=== PATIENT | male | born 1985 | race Caucasian/White ===

== ENCOUNTER 2020-07-09 21:03 | Inpatient (IN) ==
[2020-07-09] MEDS ORDERED: chlordiazePOXIDE HCl 25 MG CAP PO ONE (21:52)
[2020-07-09] MEDS ORDERED: MULTI-VITAMIN INFUSION 10 ML, THIAMINE HCL 100 MG, FOLIC ACID 1 MG in SODIUM CHLORIDE 0... IV ONE (21:52)
--- NOTE | 2020-07-09 22:09 | Emergency Department Note ---
History of Present Illness General Chief complaint: Detox Request Stated complaint: ALCOHOLIC Time Seen by Provider: 07/09/20 21:28 History of Present Illness Maximum Pain Intensity: 0 This 35-year-old presents to the ER complaining of needing detox from alcohol Location: Generalized Quality: Shaky Severity: Moderate Duration: Past week Timing: Been drinking straight for the week Context: Patient is requesting detox and came in Modifying factors: better with alcohol; worse with not drinking Patient states he went to [facility] last December and does not want to go back there for rehab. Patient also requesting psychiatry referral. Patient states he drinks 1/5 of alcohol a day. When he wakes up he feels like he needs to drink. He states he gets the shakes when he does not drink. Patient occasionally smokes. No drug use. Patient denies chest pain, dyspnea, fevers, flulike illness. Patient states he would like to be medically admitted and does not want to go to a rehab facility. Home Medications Medication Instructions Recorded Confirmed Type multivitamin [Multiple Vitamins] 1 tab PO DAILY 07/09/20 07/09/20 History Allergies Allergy/AdvReac Type Severity Reaction Status Date / Time Penicillins Allergy Verified 07/09/20 22:00 Sulfa (Sulfonamide Allergy Verified 07/09/20 22:00 Antibiotics) sulfamethoxazole Allergy Verified 06/04/09 02:53 Past Med/Surg History Medical History Alcoholism Surgical History H/O gastric bypass Social History (Updated 07/09/20 @ 22:07 by Elayne Jacome PA-C) Smoking Status: Current every day smoker Hx Alcohol Use: Yes Feels Safe at Home: Yes Review of Systems A total of 10 systems reviewed and were otherwise negative Physical Exam Vital Signs Vital Signs - 24 hr 07/09/20 21:07 07/09/20 21:28 07/09/20 21:30 Temperature 36.4 C L Temperature Source Temporal Artery Scan Pulse Rate 101 H 98 H 94 H Pulse Rate from SpO2 Sensor 95 H 92 H Respiratory Rate 18 14 12 Respiratory Effort / Characteristics Non-Labored Spontaneous Respiratory Depth Normal Blood Pressure 142/90 H 164/103 H 142/114 H Blood Pressure Mean 107 123 123 Pulse Oximetry 93 95 95 Oxygen Delivery Method Room Air Room Air Room Air Sepsis Recent Fever Within 48 Hours No Sepsis New/Unexplained Change in Mental Status No Sepsis Action Taken by Nursing No Action Required 07/09/20 21:40 07/09/20 22:00 07/09/20 23:16 Temperature Temperature Source Pulse Rate 97 H 94 H 111 H Pulse Rate from SpO2 Sensor 97 H 95 H Respiratory Rate 17 17 Respiratory Effort / Characteristics Respiratory Depth Blood Pressure 164/106 H 189/118 H Blood Pressure Mean 125 Pulse Oximetry 97 95 Oxygen Delivery Method Room Air Room Air Sepsis Recent Fever Within 48 Hours Sepsis New/Unexplained Change in Mental Status Sepsis Action Taken by Nursing 07/09/20 23:27 07/09/20 23:31 07/10/20 00:00 Temperature Temperature Source Pulse Rate 91 H 97 H 98 H Pulse Rate from SpO2 Sensor 91 H Respiratory Rate 20 24 17 Respiratory Effort / Characteristics Respiratory Depth Blood Pressure 148/82 H 130/90 122/86 Blood Pressure Mean 104 103 98 Pulse Oximetry 100 96 96 Oxygen Delivery Method Room Air Room Air Room Air Sepsis Recent Fever Within 48 Hours Sepsis New/Unexplained Change in Mental Status Sepsis Action Taken by Nursing 07/10/20 00:30 07/10/20 01:03 Temperature Temperature Source Pulse Rate 83 83 Pulse Rate from SpO2 Sensor 83 Respiratory Rate 16 20 Respiratory Effort / Characteristics Respiratory Depth Blood Pressure 128/79 138/84 Blood Pressure Mean 95 102 Pulse Oximetry 96 Oxygen Delivery Method Room Air Sepsis Recent Fever Within 48 Hours Sepsis New/Unexplained Change in Mental Status Sepsis Action Taken by Nursing VITALS: Vitals are noted on the nurse's note and reviewed by myself. Vital signs mildly tachycardic. GENERAL: Pleasant male who appears depressed, in no acute distress, nondiaphoretic, well-developed well-nourished. SKIN: The skin was without rashes, erythema, edema, or bruising. There is no tenting of the skin. Capillary reflex less than 2 seconds. HEAD: Normocephalic atraumatic. EARS: External auditory canals clear, tympanic membranes pearly willett without erythema or effusion bilaterally. EYES: Pupils equal round and reactive to light and accommodation. Conjunctivae without injection, sclerae without icterus. Extraocular movements intact. NOSE: Patent, turbinates without inflammation or discharge. MOUTH: Mucous membranes mildly dry. Pharynx without erythema or exudate. Uvula midline. Airway patent. Tongue does not deviate. NECK: Supple without nuchal rigidity. No lymphadenopathy. No thyromegaly. Cervical spine is nontender. No JVD. HEART: Mildly tachycardic rate and rhythm LUNGS: Clear to auscultation bilaterally without wheezes, rales or rhonchi. No retractions or accessory muscle use. ABDOMEN: Positive bowel sounds x 4. Normal tympanic percussion. Soft, nontender, without masses or organomegaly. Herrera sign negative. No guarding or rebound tenderness. No CVA tenderness MUSCULOSKELETAL: No muscle atrophy, erythema, or edema noted. NEURO: Patient was alert and oriented to person place and time. Normal sensation to light and sharp touch. No focal neurological deficits. Course Administered Medications Discontinued Medications Chlordiazepoxide HCl (Chlordiazepoxide Hcl 25 Mg Cap) 50 mg PO NOW ONE Stop: 07/09/20 21:53 Last Admin: 07/09/20 22:37 Dose: 50 mg Documented by: [id number] Clonidine HCl (Clonidine Hcl 0.1 Mg Tab) 0.1 mg PO NOW ONE Stop: 07/09/20 22:19 Last Admin: 07/09/20 22:37 Dose: 0.1 mg Documented by: [id number] Gabapentin (Gabapentin 600 Mg Tab) 1,200 mg PO NOW STA Stop: 07/09/20 23:44 Last Admin: 07/09/20 23:50 Dose: 1,200 mg Documented by: [id number] Multivitamins 10 ml/ Thiamine HCl 100 mg/ Folic Acid 1 mg/Sodium Chloride 1,011.2 mls @ 1,011.2 mls/hr IV .Q1H ONE Stop: 07/09/20 22:51 Last Infusion: 07/09/20 23:56 Dose: 0 mls/hr Documented by: [id number] Admin: 07/09/20 22:41 Dose: 1,011.2 mls/hr Documented by: [id number] Magnesium Sulfate/Dextrose (Magnesium Sulfate / D5w) 1 gm in 100 mls @ 100 mls/hr IV Q1H RONALDO Stop: 07/10/20 00:58 Last Admin: 07/10/20 00:32 Dose: 100 mls/hr Documented by: [id number] Infusion: 07/10/20 00:26 Dose: 0 mls/hr Documented by: [id number] Admin: 07/09/20 23:22 Dose: 100 mls/hr Documented by: [id number] Potassium Chloride (K Harman / Wtr) 10 meq in 100 mls @ 100 mls/hr IV Q1H RONALDO Stop: 07/10/20 00:59 Last Admin: 07/10/20 00:33 Dose: 100 mls/hr Documented by: [id number] Infusion: 07/10/20 00:27 Dose: 0 mls/hr Documented by: [id number] Admin: 07/09/20 23:22 Dose: 100 mls/hr Documented by: [id number] Ceftriaxone Sodium (Rocephin) 2,000 mg in 70 mls @ 100 mls/hr IV NOW STA Stop: 07/10/20 00:38 Last Infusion: 07/10/20 01:04 Dose: 0 mls/hr Documented by: [id number] Admin: 07/10/20 00:27 Dose: 100 mls/hr Documented by: [id number] Metoprolol Tartrate (Metoprolol Tartrate 1 Mg/Ml Vial) 2.5 mg IV NOW STA Stop: 07/09/20 23:13 Last Admin: 07/09/20 23:16 Dose: 2.5 mg Documented by: [id number] Potassium Chloride (Potassium Chloride 20 Meq/15 Ml Udc) 40 meq PO NOW STA Stop: 07/09/20 23:00 Last Admin: 07/09/20 23:13 Dose: 40 meq Documented by: [id number] Potassium Chloride (Potassium Chloride Crtab 20 Meq Tabcr) 50 meq PO NOW STA Stop: 07/09/20 23:17 Last Admin: 07/09/20 23:56 Dose: Not Given Documented by: [id number] Medical Decision Making Medical Records Attestation: I reviewed the patient's medical records. Home Medications Current Medication List: was personally reviewed by me Laboratory Data Attestation: I reviewed the patient's lab results. Result diagrams: 07/09/20 22:15 07/09/20 22:15 Lab Results 07/09/20 07/09/20 07/09/20 Range/Units 21:23 21:23 22:09 WBC (4.8-10.8) K/uL RBC (4.7-6.1) M/uL Hgb (14.0-18.0) g/dL Hct (42-52) % MCV (80-100) fL MCH (25-34) pg MCHC (32-36) g/dL RDW Std Deviation (36.4-46.3) fL RDW Coeff of Kunal (11.5-14.5) % Plt Count (130-400) K/uL MPV (7.4-10.4) fL Neutrophils % (Manual) % Lymphocytes % (Manual) % Monocytes % (Manual) % Basophils % (Manual) % Neutrophils # (Manual) (1.4-6.5) K/uL Total Absolute Neuts (1.4-6.5) K/uL Lymphocytes # (Manual) (1.2-3.4) K/uL Total Abs Lymphocytes (1.2-3.4) K/uL Monocytes # (Manual) (0.11-0.59) K/uL Basophils # (Manual) (0-0.2) K/uL Large Granular Lymphs % # Lrg Granular Lymphs K/uL Sodium (136-145) mmol/L Potassium (3.5-5.1) mmol/L Chloride (98-107) mmol/L Carbon Dioxide (21-32) mmol/L Anion Gap (3-11) BUN (7-18) mg/dl Creatinine (0.6-1.4) mg/dl Est Cr Clr Drug Dosing ml/min Est GFR ( Amer) Est GFR (Non-Af Amer) BUN/Creatinine Ratio (10-20) Glucose (70-99) mg/dl Calcium (8.5-10.1) mg/dl Magnesium (1.8-2.4) mg/dl Total Bilirubin (0.2-1) mg/dl AST (15-37) U/L ALT (12-78) U/L Alkaline Phosphatase (45-117) U/L Ammonia (11-32) umol/L Total Protein (6.4-8.2) gm/dl Albumin (3.4-5.0) gm/dl Globulin (2.5-4.0) gm/dl Albumin/Globulin Ratio (0.9-2) TSH (0.300-4.500) uIu/ml Urine Color Dark Yellow Urine Appearance Clear (Clear) Urine pH 6.0 (4.5-7.5) Ur Specific [place] 1.025 (1.000-1.030) Urine Protein 3+ H (Negative) Urine Glucose (UA) Negative (Negative) Urine Ketones Trace H (Negative) Urine Blood 2+ H (Negative) Urine Nitrite Positive A (Negative) Urine Bilirubin 2+ H (Negative) Urine Urobilinogen Negative (Negative) Ur Leukocyte Esterase Trace H (Negative) Urine WBC (Auto) 1-5 (0-5) /hpf Urine RBC (Auto) 5-10 H (0-4) /hpf U Hyaline Cast (Auto) >30 H (0-5) /lpf U Epithel Cells (Auto) >30 H (0-5) /lpf Urine Bacteria (Auto) Negative (Negative) Ur Renal Epithelial Cell Not Reportable Urine Opiates Screen Neg (Neg) Ur Methadone, Qual Neg (Neg) Urine Barbiturates Neg (Neg) Ur Phencyclidine (PCP) Neg (Neg) U Amphetamin/Meth Scrn Neg (Neg) MDMA (Ecstasy) Screen Neg (Neg) U Benzodiazepines Scrn Neg (Neg) Ur Cocaine Metabolite Neg (Neg) U Marijuana (THC) Screen Neg (Neg) Ethyl Alcohol mg/dL (0-3) mg/dl COVID-19 [facility] SARS-CoV-2, RNA, NAAT (NEGATIVE) 07/09/20 07/09/20 07/09/20 Range/Units 22:09 22:15 22:15 WBC 4.45 L (4.8-10.8) K/uL RBC 5.01 (4.7-6.1) M/uL Hgb 16.3 (14.0-18.0) g/dL Hct 45.3 (42-52) % MCV 90.4 (80-100) fL MCH 32.5 (25-34) pg MCHC 36.0 (32-36) g/dL RDW Std Deviation 57.8 H (36.4-46.3) fL RDW Coeff of Kunal 17.6 H (11.5-14.5) % Plt Count 85 L (130-400) K/uL MPV 10.7 H (7.4-10.4) fL Neutrophils % (Manual) 27.8 % Lymphocytes % (Manual) 40.1 % Monocytes % (Manual) 8.7 % Basophils % (Manual) 1.7 % Neutrophils # (Manual) 1.24 L (1.4-6.5) K/uL Total Absolute Neuts 1.24 L (1.4-6.5) K/uL Lymphocytes # (Manual) 1.78 (1.2-3.4) K/uL Total Abs Lymphocytes 2.75 (1.2-3.4) K/uL Monocytes # (Manual) 0.39 (0.11-0.59) K/uL Basophils # (Manual) 0.08 (0-0.2) K/uL Large Granular Lymphs 21.7 % # Lrg Granular Lymphs 0.97 K/uL Sodium 138 (136-145) mmol/L Potassium 2.3 L* (3.5-5.1) mmol/L Chloride 95 L (98-107) mmol/L Carbon Dioxide 29 (21-32) mmol/L Anion Gap 13.0 H (3-11) BUN 5 L (7-18) mg/dl Creatinine 0.82 (0.6-1.4) mg/dl Est Cr Clr Drug Dosing 165.2 ml/min Est GFR ( Amer) 131.9 Est GFR (Non-Af Amer) 113.8 BUN/Creatinine Ratio 6.2 L (10-20) Glucose 116 H (70-99) mg/dl Calcium 7.3 L (8.5-10.1) mg/dl Magnesium 1.1 L (1.8-2.4) mg/dl Total Bilirubin 2.4 H (0.2-1) mg/dl AST 481 H (15-37) U/L ALT 122 H (12-78) U/L Alkaline Phosphatase 308 H (45-117) U/L Ammonia (11-32) umol/L Total Protein 7.8 (6.4-8.2) gm/dl Albumin 3.2 L (3.4-5.0) gm/dl Globulin 4.6 H (2.5-4.0) gm/dl Albumin/Globulin Ratio 0.7 L (0.9-2) TSH 1.270 (0.300-4.500) uIu/ml Urine Color Urine Appearance (Clear) Urine pH (4.5-7.5) Ur Specific [place] (1.000-1.030) Urine Protein (Negative) Urine Glucose (UA) (Negative) Urine Ketones (Negative) Urine Blood (Negative) Urine Nitrite (Negative) Urine Bilirubin (Negative) Urine Urobilinogen (Negative) Ur Leukocyte Esterase (Negative) Urine WBC (Auto) (0-5) /hpf Urine RBC (Auto) (0-4) /hpf U Hyaline Cast (Auto) (0-5) /lpf U Epithel Cells (Auto) (0-5) /lpf Urine Bacteria (Auto) (Negative) Ur Renal Epithelial Cell Urine Opiates Screen (Neg) Ur Methadone, Qual (Neg) Urine Barbiturates (Neg) Ur Phencyclidine (PCP) (Neg) U Amphetamin/Meth Scrn (Neg) MDMA (Ecstasy) Screen (Neg) U Benzodiazepines Scrn (Neg) Ur Cocaine Metabolite (Neg) U Marijuana (THC) Screen (Neg) Ethyl Alcohol mg/dL (0-3) mg/dl COVID-19 Eval Order SARS-CoV-2, RNA, NAAT NEGATIVE (NEGATIVE) 07/09/20 07/09/20 Range/Units 22:15 22:20 WBC (4.8-10.8) K/uL RBC (4.7-6.1) M/uL Hgb (14.0-18.0) g/dL Hct (42-52) % MCV (80-100) fL MCH (25-34) pg MCHC (32-36) g/dL RDW Std Deviation (36.4-46.3) fL RDW Coeff of Kunal (11.5-14.5) % Plt Count (130-400) K/uL MPV (7.4-10.4) fL Neutrophils % (Manual) % Lymphocytes % (Manual) % Monocytes % (Manual) % Basophils % (Manual) % Neutrophils # (Manual) (1.4-6.5) K/uL Total Absolute Neuts (1.4-6.5) K/uL Lymphocytes # (Manual) (1.2-3.4) K/uL Total Abs Lymphocytes (1.2-3.4) K/uL Monocytes # (Manual) (0.11-0.59) K/uL Basophils # (Manual) (0-0.2) K/uL Large Granular Lymphs % # Lrg Granular Lymphs K/uL Sodium (136-145) mmol/L Potassium (3.5-5.1) mmol/L Chloride (98-107) mmol/L Carbon Dioxide (21-32) mmol/L Anion Gap (3-11) BUN (7-18) mg/dl Creatinine (0.6-1.4) mg/dl Est Cr Clr Drug Dosing ml/min Est GFR ( Amer) Est GFR (Non-Af Amer) BUN/Creatinine Ratio (10-20) Glucose (70-99) mg/dl Calcium (8.5-10.1) mg/dl Magnesium (1.8-2.4) mg/dl Total Bilirubin (0.2-1) mg/dl AST (15-37) U/L ALT (12-78) U/L Alkaline Phosphatase (45-117) U/L Ammonia 11.3 (11-32) umol/L Total Protein (6.4-8.2) gm/dl Albumin (3.4-5.0) gm/dl Globulin (2.5-4.0) gm/dl Albumin/Globulin Ratio (0.9-2) TSH (0.300-4.500) uIu/ml Urine Color Urine Appearance (Clear) Urine pH (4.5-7.5) Ur Specific [place] (1.000-1.030) Urine Protein (Negative) Urine Glucose (UA) (Negative) Urine Ketones (Negative) Urine Blood (Negative) Urine Nitrite (Negative) Urine Bilirubin (Negative) Urine Urobilinogen (Negative) Ur Leukocyte Esterase (Negative) Urine WBC (Auto) (0-5) /hpf Urine RBC (Auto) (0-4) /hpf U Hyaline Cast (Auto) (0-5) /lpf U Epithel Cells (Auto) (0-5) /lpf Urine Bacteria (Auto) (Negative) Ur Renal Epithelial Cell Urine Opiates Screen (Neg) Ur Methadone, Qual (Neg) Urine Barbiturates (Neg) Ur Phencyclidine (PCP) (Neg) U Amphetamin/Meth Scrn (Neg) MDMA (Ecstasy) Screen (Neg) U Benzodiazepines Scrn (Neg) Ur Cocaine Metabolite (Neg) U Marijuana (THC) Screen (Neg) Ethyl Alcohol mg/dL 355.4 H (0-3) mg/dl COVID-19 Eval Order SARS-CoV-2, RNA, NAAT (NEGATIVE) MDM Narrative Prior records/ancillary studies reviewed and summarized above. Nursing notes reviewed. Additional history obtained from family. The patient's history was concerning for alcoholism. Differential diagnosis: Etiologies such as alcoholism, metabolic, infection, hypo/hyperglycemia, electrolyte abnormalities, cardiac sources, intracerebral event, toxicologic, neurologic, as well as others were entertained. Physical examination: As above. ER treatment provided: IV Lock An order was placed for continuous cardiac monitoring. The monitor shows a rate of 60-1 20 with a sinus rhythm. Librium, banana bag, magnesium, potassium On reassessment the patient felt better. Diagnostics interpretation by me: ECG: Ordered for alcoholism and weakness EKG: Normal sinus, normal intervals, no acute ST-T wave changes. Impression normal sinus rhythm interpreted by myself I think arrhythmia is unlikely. EKG shows normal sinus rhythm with no interval abnormalities such as QT prolongation or WPW. There are no findings to suggest Brugada syndrome. Cardiac monitoring in the emergency department reveals no tachycardic or bradycardic dysrhythmia. Hypertrophic cardiomyopathy was considered but there are no clear historical elements pointing toward this. EKG is not suggestive. The QRS voltage is not extremely large and there are no hutchins ggestive Q waves. The labs revealed hypokalemia and this was replaced orally and intravenously. Hypomagnesia and this was replaced intravenously Elevated LFTs most likely related to alcoholism Elevated alcohol Imaging studies: Chest x-ray with no acute consolidation, pneumothorax or free air per my interpretation Consultation: A consultation was placed with the hospitalist, Dr Rand. The case was discussed and diagnostics were reviewed. The patient was evaluated in the ER for further treatment. Exam and history seem consistent with alcoholism requesting detox. Electrolytes were replenished. Patient was requesting medical admission. Medicine was consulted. He requested to talk to a counselor for his depression. Sudha from case management did speak to the patient. Patient is agreeable to treatment plan of admission. Medicine will evaluate. By the evaluation outlined above emergent etiologies such as infection, cardiac sources, intracerebral event, neurologic, abnormalities blood glucose, as well as others were deemed relatively unlikely. The pt informed about the findings as listed above. All questions were answered and pleased with the treatment. The chart was completed utilizing [employer] voice recognition software. Grammatical errors, random word insertions, pronoun errors, and incomplete sentences are an occassional consequence of this system due to software limitations, ambient noise, and hardware issues. Any formal questions or concerns about the content, text, or information contained within the body of this dictation should be directly addressed to the physician pathologist assistant for clarification. Impression & Plan Alcoholism, Hypomagnesemia, Hypokalemia, Alcoholic intoxication Discharge Plan Visit Data Chief Complaint: Detox Request Stated Complaint: ALCOHOLIC ED Provider: Krunal Bosch ED Midlevel Provider: Elayne Jacome Discharge Problem: Alcoholism, Hypomagnesemia, Hypokalemia, Alcoholic intoxication Patient Disposition: Being Evaluated by Hospitalist Condition: Good Discharge Instructions Interventions: ED Discharge Assessment Last Done: 07/10/20 01:25 Forms Stand Alone Forms: [facility], Suicide Prevention Resources Prescriptions Prescriptions: No Action multivitamin [Multiple Vitamins] Tablet 1 tab PO DAILY RF: 0 Referrals Referrals: PCP,NO [Primary Care Provider] -
[2020-07-09] MEDS ORDERED: cloNIDine HCL 0.1 MG TAB PO ONE (22:18)
--- NOTE | 2020-07-09 22:21 | XRay Report ---
SINGLE VIEW CHEST CLINICAL HISTORY: Generalized weakness. FINDINGS: An AP, portable, upright chest radiograph is obtained. No prior studies are available for c omparison at the time of dictation. The examination is degraded by portable technique, apical lordoti c positioning, and patient rotation. The cardiomediastinal silhouette is unremarkable. There is mild bibasilar atelectasis and elevation of right hemidiaphragm. No airspace consolidation or large pleura l effusion is identified. No pneumothorax is seen. The bony thorax is grossly intact. IMPRESSION: No active disease in the chest. ACT 112: Negative or not required by law. Electronically signed by: Lele Bailey M.D. 07/09/2020 10:19 PM
[2020-07-09 22:39] LABS: Appearance Urine Clear (Clear); Bacteria Urine Automated Negative (Negative); Blood Urine 2+ (Negative); Color Urine Dark Yellow; Epithelial Cell Urine Auto >30 /lpf (0-5); Glucose Urine UA Negative (Negative); Ketones Urine Trace (Negative); Leukocyte Esterase Urine Trace (Negative); Nitrite Urine Positive (Negative); Protein Urine 3+ (Negative); Specific Gravity Urine 1.025 (1.000-1.030); Urobilinogen Urine Negative (Negative)
[2020-07-09 22:42] LABS: Bilirubin Urine 2+ (Negative)
[2020-07-09 22:50] LABS: Cast Urine Automated >30 /lpf (0-5)
[2020-07-09 22:56] LABS: Albumin Level 3.2 gm/dl (3.4-5.0); BUN Creatinine Ratio 6.2 (10-20); Calcium 7.3 mg/dl (8.5-10.1); Creatinine Clr Calc Pharmacy 165.2 ml/min; Est GFR (African American) 131.9; Est GFR (Non-African American) 113.8; Magnesium 1.1 mg/dl (1.8-2.4); Potassium 2.3 mmol/L (3.5-5.1)
[2020-07-09] MEDS ORDERED: POTASSIUM CHLORIDE 20 MEQ/15 ML UDC PO STA (22:59)
[2020-07-09 23:02] LABS: Amphetamines+Metham, Urine Neg (Neg); Barbiturates, Urine Neg (Neg); Benzodiazepine, Urine Neg (Neg); Cocaine, Urine Neg (Neg); MDMA (Ecstacy), Urine Neg (Neg); Methadone, Urine Neg (Neg); Opiate, Urine Neg (Neg); Phencyclidine, Urine Neg (Neg)
[2020-07-09 23:07] LABS: Albumin Globulin Ratio 0.7 (0.9-2); Bilirubin,Total 2.4 mg/dl (0.2-1); Globulin 4.6 gm/dl (2.5-4.0); Thyroid Stimulating Hormone 1.27 uIu/ml (0.300-4.500); Total Protein 7.8 gm/dl (6.4-8.2)
--- NOTE | 2020-07-09 23:11 | History & Physical Report ---
Date of Service July 09, 2020 Assessment & Plan (1) Asymptomatic hypertensive urgency: History hypertension previously on diuretic Rx prior to bariatric surgery Markedly elevated BP secondary to alcohol withdrawal Alcoholic hepatitis New onset thrombocytopenia possibly secondary to alcoholic liver disease Hypokalemia, hypomagnesemia secondary to poor p.o. intake Complicated UTI, no sepsis mood disorder, suboptimal, past history bupropion Rx which patient stopped because it was not working history of gastric bypass Hyperglycemia rule out DM ongoing tobacco abuse PCU Initiate lisinopril Clonidine as needed for uncontrolled BP Liver ultrasound Follow LFTs, GI consult if with worsening Replace electrolytes Psych consult for suboptimal depression Check hemoglobin A1c Social service RE discharge planning Nicotine gum as needed DVT prophylaxis. SCDs Re: Thrombocytopenia Full code Text document was generated using [employer] voice recognition software. It may contain grammatical or spelling errors. Kindly contact undersigned for clarification of any documentation item in question. History of Present Illness Chief Complaint: Detox Primary Care Provider: Dr. Fernandez History obtained from patient, family, and records. Medical history significant for hypertension, hyperlipidemia, mood disorder, history of gastric bypass (2005), ongoing tobacco/alcohol use. Patient admitted at [facility] drug rehab facility for alcohol detox last December 2019. Patient went back to drinking 2 months ago. " Brain on fire." Admits to bad depression but denies suicidality. Patient family has been talking to patient about detoxing since last week to fix his life. Last drink was yesterday. Patient denies chest pain, SOB, headache, cough symptoms. Denies abdominal pain, diarrhea. Poor appetite. Admits to urinary urgency. No prior history of alcohol withdrawal seizures or intubation for bad alcohol withdrawal. Medical History as above Surgical History : Gastric bypass, liver biopsy Family History : Alcoholism Personal/Social history : 3 cigarettes a day, alcohol abuse, [employer] work Allergies Allergy/AdvReac Type Severity Reaction Status Date / Time Penicillins Allergy Verified 07/09/20 22:00 Sulfa (Sulfonamide Allergy Verified 07/09/20 22:00 Antibiotics) sulfamethoxazole Allergy Verified 06/04/09 02:53 Home Medications Medication Instructions Recorded Confirmed Type multivitamin [Multiple Vitamins] 1 tab PO DAILY 07/09/20 07/09/20 History Past Med/Surg History Medical History Alcoholism Surgical History H/O gastric bypass Social History (Updated 07/09/20 @ 22:07 by Elayne Jacome PA-C) Smoking Status: Current some day smoker Second Hand Exposure: No; Do You Dip or Chew Tobacco: No; Tobacco Cessation Education Requested by Patient: No Hx Alcohol Use: Yes Alcohol type: hard liquor Hx Substance Use: No Preferred Language: Faroese Communication Ability: Effective Amf Mechanic Required: No Beliefs That Will Affect Care: None Current Living Situation: Spouse Other Information That Helps Us Care for You: No Feels Safe at Home: Yes Safety Concerns: Feels Safe At This Time Assistive Devices: Glasses Review of Systems Review of Systems: As per HPI, all 10 systems reviewed, all other ROS negative Physical Exam Physical Exam: GENERAL: Slightly uncomfortable and anxious, obese, no respiratory distress SKIN: Normal color, warm HEENT: Bespectacled, pink palpebral conjunctivae, flushed face, no ptosis, dry buccal mucosa NECK : Supple, short neck, no tenderness CHEST : CTA, no tenderness HEART : RRR, no obvious murmurs ABDOMEN: Some distention, nontender EXTREMITIES : No LE swelling/tenderness, no other conspicuous deformities noted NEUROLOGIC : Coherent, no facial asymmetry, no other gross focality Results & Data Results & Data ([facility]) Vital Signs (Past 12 Hours) Vital Signs Temp Pulse Resp BP Pulse Ox 07/09/20 22:00 94 H 17 164/106 H 95 07/09/20 21:40 97 H 17 97 07/09/20 21:30 94 H 12 142/114 H 95 07/09/20 21:28 98 H 14 164/103 H 95 07/09/20 21:07 36.4 C L 101 H 18 142/90 H 93 Laboratory Results Laboratory Results Sodium 138 mmol/L (136-145) 07/09/20 22:15 Potassium 2.3 mmol/L (3.5-5.1) L* 07/09/20 22:15 Chloride 95 mmol/L (98-107) L 07/09/20 22:15 Carbon Dioxide 29 mmol/L (21-32) 07/09/20 22:15 Anion Gap 13.0 (3-11) H 07/09/20 22:15 BUN 5 mg/dl (7-18) L 07/09/20 22:15 Creatinine 0.82 mg/dl (0.6-1.4) 07/09/20 22:15 Est Cr Clr Drug Dosing 165.2 ml/min 07/09/20 22:15 Est GFR ( Amer) 131.9 07/09/20 22:15 Est GFR (Non-Af Amer) 113.8 07/09/20 22:15 BUN/Creatinine Ratio 6.2 (10-20) L 07/09/20 22:15 Glucose 116 mg/dl (70-99) H 07/09/20 22:15 Calcium 7.3 mg/dl (8.5-10.1) L 07/09/20 22:15 Magnesium 1.1 mg/dl (1.8-2.4) L 07/09/20 22:15 Total Bilirubin 2.4 mg/dl (0.2-1) H 07/09/20 22:15 AST 481 U/L (15-37) H 07/09/20 22:15 ALT 122 U/L (12-78) H 07/09/20 22:15 Alkaline Phosphatase 308 U/L (45-117) H 07/09/20 22:15 Ammonia 11.3 umol/L (11-32) 07/09/20 22:15 Total Protein 7.8 gm/dl (6.4-8.2) 07/09/20 22:15 Albumin 3.2 gm/dl (3.4-5.0) L 07/09/20 22:15 Globulin 4.6 gm/dl (2.5-4.0) H 07/09/20 22:15 Albumin/Globulin Ratio 0.7 (0.9-2) L 07/09/20 22:15 TSH 1.270 uIu/ml (0.300-4.500) 07/09/20 22:15 Urine Color Dark Yellow 07/09/20:23 Urine Appearance Clear (Clear) 07/09/20 21:23 Urine pH 6.0 (4.5-7.5) 07/09/20:23 Ur Specific [place] 1.025 (1.000-1.030) 07/09/20:23 Urine Protein 3+ (Negative) H 07/09/20:23 Urine Glucose (UA) Negative (Negative) 07/09/20 21:23 Urine Ketones Trace (Negative) H 07/09/20 21:23 Urine Blood 2+ (Negative) H 07/09/20 21:23 Urine Nitrite Positive (Negative) A 07/09/20 21:23 Urine Bilirubin 2+ (Negative) H 07/09/20 21:23 Urine Urobilinogen Negative (Negative) 07/09/20 21:23 Ur Leukocyte Esterase Trace (Negative) H 07/09/20 21:23 Urine WBC (Auto) 1-5 /hpf (0-5) 07/09/20 21:23 Urine RBC (Auto) 5-10 /hpf (0-4) H 07/09/20 21: U Hyaline Cast (Auto) >30 /lpf (0-5) H 07/09/20 21: U Epithel Cells (Auto) >30 /lpf (0-5) H 07/09/20 21:23 Urine Bacteria (Auto) Negative (Negative) 07/09/20 21:23 Ur Renal Epithelial Cell Not Reportable 07/09/20 21:23 Urine Opiates Screen Neg (Neg) 07/09/20 21:23 Ur Methadone, Qual Neg (Neg) 07/09/20 21:23 Urine Barbiturates Neg (Neg) 07/09/20 21:23 Ur Phencyclidine (PCP) Neg (Neg) 07/09/20 21:23 U Amphetamin/Meth Scrn Neg (Neg) 07/09/20 21:23 MDMA (Ecstasy) Screen Neg (Neg) 07/09/20 21:23 U Benzodiazepines Scrn Neg (Neg) 07/09/20 21:23 Ur Cocaine Metabolite Neg (Neg) 07/09/20 21:23 U Marijuana (THC) Screen Neg (Neg) 07/09/20 21:23 COVID-19 Eval Order Covid19 [facility] 07/09/20 22:09 SARS-CoV-2, RNA, NAAT NEGATIVE (NEGATIVE) 07/09/20 22:09 Diagnostic Findings Chest x-ray : No active disease in the chest. EKG as per my interpretation : Rate 85, NSR, normal axis, no ischemia
[2020-07-09] MEDS ORDERED: METOPROLOL TARTRATE 1 MG/ML VIAL IV STA (23:12)
[2020-07-09] MEDS ORDERED: POTASSIUM CHLORIDE CRTAB 20 MEQ TABCR PO STA (23:16)
[2020-07-09 23:17] LABS: Hematocrit (blood only) 45.3 % (42-52); Hemoglobin 16.3 g/dL (14.0-18.0); Mean Corpuscular Hemoglobin 32.5 pg (25-34); Mean Corpuscular Volume 90.4 fL (80-100); Mean Platelet Volume 10.7 fL (7.4-10.4); Platelet Count 85 K/uL (130-400); RDW Coefficient of Variation 17.6 % (11.5-14.5); RDW Standard Deviation 57.8 fL (36.4-46.3); Red Blood Count 5.01 M/uL (4.7-6.1); White Blood Count 4.45 K/uL (4.8-10.8)
[2020-07-09] MEDS: MAGNESIUM SULFATE / D5W 1 GM/100 ML BAG IV SCH (23:22)
[2020-07-09] MEDS: POTASSIUM CHLORIDE / WTR 10 MEQ/100 ML PLCT IV SCH (23:22)
[2020-07-09] MEDS ORDERED: GABAPENTIN 800 MG TAB PO STA (23:23)
[2020-07-09 23:28] LABS: ALC (manual) 2.75 K/uL (1.2-3.4); ANC (manual) 1.24 K/uL (1.4-6.5); Basophils # (manual) 0.08 K/uL (0-0.2); Basophils % (manual) 1.7 %; Large Granular Lymph # (manua 0.97 K/uL; Large Granular Lymph % (manual) 21.7 %; Lymphocytes # (manual) 1.78 K/uL (1.2-3.4); Lymphocytes % (manual) 40.1 %; Monocytes # (manual) 0.39 K/uL (0.11-0.59); Monocytes % (manual) 8.7 %; Neutrophils # (manual) 1.24 K/uL (1.4-6.5); Neutrophils % (manual) 27.8 %
[2020-07-09] MEDS ORDERED: GABAPENTIN 600 MG TAB PO STA (23:43)
[2020-07-09] MEDS ORDERED: cefTRIAXone SODIUM 2,000 MG/70 ML BAG IV STA (23:57)
[2020-07-10] MEDS: MAGNESIUM SULFATE / D5W 1 GM/100 ML BAG IV SCH ×3 (00:32→05:23)
[2020-07-10] MEDS: POTASSIUM CHLORIDE / WTR 10 MEQ/100 ML PLCT IV SCH (00:33)
[2020-07-10] MEDS ORDERED: ATIVAN IV ALCOHOL WITHDRAWL IV PRN (02:16)
[2020-07-10] MEDS ORDERED: LORazepam 1 MG/2 ML VIAL IV PRN (02:16)
[2020-07-10] MEDS ORDERED: LORazepam 2 MG/4 ML VIAL IV PRN (02:16)
[2020-07-10] MEDS ORDERED: ACETAMINOPHEN 325 MG TAB PO PRN (02:16)
[2020-07-10] MEDS ORDERED: oxyCODONE HCL IR 5 MG TAB (IMMEDIATE RELEASE) PO PRN (02:16)
[2020-07-10] MEDS ORDERED: LORazepam 3 MG/6 ML VIAL IV PRN (02:16)
[2020-07-10] MEDS ORDERED: PROMETHAZINE HCL 12.5 MG in SODIUM CHLORIDE 0.9% 50 ML IV PRN (02:16)
[2020-07-10] MEDS ORDERED: GABAPENTIN 1200MG ALCOHOL WITHDRAWAL LOAD PO STA (02:16)
[2020-07-10] MEDS ORDERED: POTASSIUM CHLORIDE 10 MEQ TABCR PO ONE ×2 (02:30→03:15)
[2020-07-10] MEDS ORDERED: POTASSIUM CHLORIDE 40 MEQ in SODIUM CHLORIDE 0.9% 1000ML 1,000 ML IV ONE (02:45)
[2020-07-10] MEDS: FOLIC ACID 1 MG TAB PO SCH ×2 (03:12→07:47)
[2020-07-10] MEDS: THIAMINE HCL 100 MG TAB PO SCH ×2 (03:12→07:47)
[2020-07-10] MEDS: lisinopril 5 MG TAB PO SCH (04:35)
[2020-07-10] MEDS: GABAPENTIN 600 MG TAB PO SCH ×3 (04:36→19:34)
[2020-07-10] MEDS ORDERED: CALCIUM GLUCONATE 10% 2,000 MG in SODIUM CHLORIDE 0.9% 50 ML IV STA (06:44)
[2020-07-10 07:20] LABS: Hematocrit (blood only) 41.7 % (42-52); Hemoglobin 14.3 g/dL (14.0-18.0); Mean Corpuscular Hemoglobin 31.8 pg (25-34); Mean Corpuscular Hgb Conc 34.3 g/dL (32-36); Mean Corpuscular Volume 92.9 fL (80-100); RDW Coefficient of Variation 17.9 % (11.5-14.5); RDW Standard Deviation 59.8 fL (36.4-46.3); Red Blood Count 4.49 M/uL (4.7-6.1); White Blood Count 4.57 K/uL (4.8-10.8)
[2020-07-10 07:21] LABS: Mean Platelet Volume 10.9 fL (7.4-10.4); Platelet Count 56 K/uL (130-400)
[2020-07-10 07:39] LABS: Estimated Average Glucose 126 mg/dl
[2020-07-10 07:41] LABS: INR 1.3 (0.9-1.1); Prothrombin Time 12.6 Seconds (9.0-12.0)
[2020-07-10] MEDS: MULTIVITAMIN TAB PO SCH (07:46)
[2020-07-10 07:54] LABS: Albumin Globulin Ratio 0.6 (0.9-2); Albumin Level 2.5 gm/dl (3.4-5.0); BUN Creatinine Ratio 5.5 (10-20); Bilirubin,Total 1.8 mg/dl (0.2-1); Calcium 7.1 mg/dl (8.5-10.1); Est GFR (African American) 141.6; Est GFR (Non-African American) 122.1; Globulin 3.9 gm/dl (2.5-4.0); Magnesium 1.9 mg/dl (1.8-2.4); Potassium 2.9 mmol/L (3.5-5.1); Total Protein 6.4 gm/dl (6.4-8.2)
[2020-07-10] MEDS ORDERED: INFLUENZA VIRUS QUAD VACCINE 0.5 ML SYR IM ONE (08:00)
[2020-07-10] MEDS ORDERED: INFLUENZA ADMINISTRATION CHARGE ONE (08:00)
[2020-07-10 08:19] LABS: Basophils # (auto) 0.02 K/uL (0-0.2); Basophils % (auto) 0.4 %; Eosinophils # (auto) 0.05 K/uL (0-0.5); Eosinophils % (auto) 1.1 %; Lymphocytes # (auto) 2.58 K/uL (1.2-3.4); Lymphocytes % (auto) 56.5 %; Monocytes # (auto) 0.55 K/uL (0.11-0.59); Neutrophils # (auto) 1.37 K/uL (1.4-6.5); Smudge Cells Present
--- NOTE | 2020-07-10 08:30 | Ultrasound Report ---
US liver HISTORY: 35 years-old Male abn lfts acute right upper quadrant abdominal pain with elevated LFTs COMPARISON: None TECHNIQUE: Multiple real-time sonographic images of the abdominal right upper quadrant were obtained assessing grayscale appearance and color flow FINDINGS: Limited exam secondary to patient body habitus. Echogenic liver suggestive of hepatic steatosis. Liver also appears enlarged. No marginal nodularity of the liver identified to suggest cirrhosis. No ascites. Hypoechoic area adjacent to the gracie hepat is measures 5.2 x 1.9 x 2.8 cm without color flow. The gallbladder is within normal limits without sh adowing cholelithiasis, wall thickening or pericholecystic fluid. Sonographic Herrera sign reported as negative. Normal common bile duct, 4 mm. The imaged right kidney is unremarkable without hydronephrosis. IMPRESSION: 1. No cholelithiasis or sonographic evidence of acute cholecystitis. 2. Hepatic steatosis. Ill-defined hypoechoic area near the gracie hepatis measuring up to approximatel y 5.2 cm may reflect fatty sparing. This finding could be confirmed with a follow-up CT or MRI liver protocol if of further clinical concern. 3. No biliary ductal dilation. ACT 112: Negative or not required by law. The above report was generated using voice recognition software. It may contain grammatical, syntax o r spelling errors. Electronically signed by: Tej Mae M.D. 07/10/2020 8:29 AM
[2020-07-10] MEDS ORDERED: lisinopril 5 MG TAB PO SCH (09:00)
--- NOTE | 2020-07-10 09:08 | Psychiatric Consultation ---
Date of Consultation July 10, 2020 Impression / Recommendations Impression Dr. Frank Werner was directly involved in review and discussion of the patient's case and participated in medical decision making regarding treatment recommendations. RECOMMENDATIONS: 07/10 - Psychiatric consultation requested by hospitalist service to evaluate patient for depression. Pt presented to ED with request for alcohol detox, history of alcohol abuse. - Management of alcohol withdrawal symptoms per primary team. Case management consultation to assist with referrals for substance abuse treatment. Recommendation from our service would be for inpatient D&A rehab if patient is willing. Pt is presently opposed to inpatient rehab, but expresses he would be interested in outpatient D&A counseling. He reports previous appointments after d/c from rehab ([facility]), but states he had not been consistent with appointment. Option of intensive outpatient program was also discussed with the patient, who is hesitant to pursue this option at this time. - Pt willing to accept prn hydroxyzine 25mg as needed for anxiety (previously prescribed after inpatient rehab). Discussed concern regarding offering an antidepressant medication in the setting of alcohol withdrawal, due to risk of lowering seizure threshold. Pt verbalized understanding and did agree to willingness for outpatient psychiatry referral for further assessment and management of medications on an outpatient basis. - Pt is denying SI/HI, SIB, hallucinations, delusions, or other acute mood/anxiety concerns. No indication for inpatient psychiatric treatment. Recommendation is that patient focus on supports necessary to maintain sobriety and related goals. Appreciate the opportunity to participate in the care of this patient. Please reach out to our service with any additional questions or updates. Risk Factors Assessment Do You Have Access To A Gun?: No Psych History Identifying Data 35-year-old male admitted medically on 07/09/20 after presenting to the ED with request for alcohol detox. Pt was admitted due to concern for asymptomatic hypertensive urgency, has history of other medical conditions related to alcohol abuse. Psychiatric consultation was requested to evaluate the patient for depression. Chief Complaint "I previously went to rehab, but I had a relapse with my alcohol use. It's become a significant problem." History of Present Illness Parag Zamora is a 35-year-old male admitted medically on 07/09/20 with request for assistance with alcohol detox. Pt states he was brought to the ED by his girlfriend's mother ("[id number]") due to "I could hardly get off the couch I was so weak. I had been trying to wean off by myself the past few weeks, and it's just not working." Pt was agreeable with psychiatric consultation, which was ordered by our hospitalist service to evaluate the patient for depression. Pt does have a previous inpatient psychiatric admission from 2000, related to suicidality and depression at age 16. During that admission, patient reported he had been dealing with significant depression since age 3. Patient's primary concern at this time is his alcohol use, and he admits "I don't want to drink." Pt states although he was trying to "wean off", he felt the need to keep drinking "just to maintain, and to avoid DTs." Pt denies history of complicated withdrawal in the past. He states he went to [facility] for D&A rehab in 12/2019, and relapsed 4 months after completing the program. Pt identifies the start of his alcohol problem was "over the summer, I think related to COVID. Isolation, the pandemic, boredom. And it just escalated." Pt states that in November 2019 he realized his alcohol use was becoming a problem and he sought treatment in December. Pt identifies work as particularly stressful due to having a new boss and issues with working from home ("there is no work/life separation right now"). Pt admits to having a supportive partner and a 2y/o son who are is motivation for getting better. Pt does report a longstanding history of depression, and states he is aware that his alcohol use is likely also contributing to this. Pt states that he e xperiences significant anxiety and occasional panic attacks that are generally related to specific stressors. Pt was prescribed medication for anxiety while in rehab (clonidine, hydroxyzine) but admits he did not follow-up to maintain these prescriptions. Pt does agree to having hydroxyzine available as needed for this admission. Pt denies SI/HI, SIB, A/V hallucinations, paranoia, OCD, PTSD, and vijay/hypomania. Pt was counseled on need to maintain sobriety in order to truly assess his mood, given the likely contribution alcohol has had on his depression. Pt does request for outpatient referrals for psychiatry and therapy. He was encouraged to consider inpatient D&A rehab but is declining, he is also not interested in IOP options at this time. Pt was encouraged to follow-up with case management for referrals for substance abuse treatment. Pt was informed of services offered by our team during his stay and he denied other needs or concerns at this time. Past Psychiatric History Outpatient Services: None Previous Psych Admissions: [facility] - 2000 at age 16y/o for depression Inpatient D&A Rehab at [facility] in 12/2019 Do You Have Access To A Gun?: No History of Previous Suicide Attempt: No Past Medication Trials: 1. Valium (r/t detox, ETOH abuse treatment) 2. Hydroxyzine 3. Clonidine 4. Bupropion 5. Paxil Allergies Allergy/AdvReac Type Severity Reaction Status Date / Time Penicillins Allergy Verified 07/09/20 22:00 Sulfa (Sulfonamide Allergy Verified 07/09/20 22:00 Antibiotics) sulfamethoxazole Allergy Verified 06/04/09 02:53 Home Medications Medication Instructions Recorded Confirmed Type multivitamin [Multiple Vitamins] 1 tab PO DAILY 07/09/20 07/09/20 History Family History Pt reports his mother has anxiety, paternal grandmother with alcoholism. Pt believes a cousin was suicidal at one point, but is unsure of any suicide attempts. Substance Abuse History Pt admits to consistent but "limited" tobacco use - 3 cigarettes a week per his report. Pt admits to significant alcohol use, generally consuming a fifth of whiskey a day for the past few months. Pt went to rehab in 12/2019 and relapsed 4 months later - admits he did not "follow the program" with regard to AA meetings, contact with sponsor, and outpatient D&A counseling. Pt denies use of illicit substances. 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 Other (partner of 4 years, mother of his child) Number Of Children: 1 - 2y/o son Beliefs That Will Affect Care: None History of Legal Problems: Pt admits to a DUI 12 years ago. 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 Pt is somewhat inappropriately dressed, in that he is not wearing a shirt or hospital gown. Thinning blonde hair is somewhat unkempt, but overall level of hygiene appears adequate. Eye C ontact: + fair eye contact Motor Behavior: + tremor (fine tremor observed in hands bilaterally ) Speech: normal rate/rhythm/volume of speech Affect: + depressed affect and + anxious affect Mood: + depressed mood and + anxious mood Thought Process: goal directed thought process and clear/coherent thought process Thought Content: reality based without delusions; no hopelessness and no worthlessness Suicidal Thoughts: denies suicidal thoughts, denies suicidal plan and denies suicidal intent Homicidal Thoughts: denies homicidal thoughts Hallucinations: no auditory hallucinations and no visual hallucinations Cognition: attention grossly intact and language grossly intact Estimated Intelligence: consistent with education level Insight: + limited insight recognition that he needs to change, but limited insight regarding the best tools to utilize to make these changes Judgement: + limited judgement Vital Signs (Past 24 Hours): Last Vital Signs Temp 36.6 C 07/10/20 07:23 Pulse 81 07/10/20 08:31 Resp 17 07/10/20 07:23 BP 155/92 H 07/10/20 07:23 Pulse Ox 97 07/10/20 07:23 Review of Systems Constitutional: reports generalized weakness, fatigue Cardiovascular: denied Respiratory: denied Gastrointestinal: denied Neurological: report tremor/shaking Psychiatric: denies symptoms other than stated above Total of at least 10 systems reviewed, pertinent positives as above and in HPI. Results & Data (PSY) Medications Administered Folic Acid (Folic Acid 1 Mg Tab) 1 mg PO QAM [facility] Stop: 08/09/20 02:15 Last Admin: 07/10/20 07:47 Dose: 1 mg Documented by: [id number] Admin: 07/10/20 03:12 Dose: 1 mg Documented by: [id number] Gabapentin (Gabapentin 600 Mg Tab) 600 mg PO Q6H [facility] Stop: 07/10/20 12:01 Last Admin: 07/10/20 04:36 Dose: 600 mg Documented by: [id number] Promethazine HCl 12.5 mg/ (Sodium Chloride) 50.5 mls @ 202 mls/hr IV Q6H PRN PRN Reason: Nausea And Vomiting Stop: 08/09/20 02:15 Last Infusion: 07/10/20 08:37 Dose: 0 mls/hr Documented by: [id number] Admin: 07/10/20 08:22 Dose: 202 mls/hr Documented by: [id number] Potassium Chloride 40 meq/ (Sodium Chloride) 1,020 mls @ 50 mls/hr IV .[id number] ONE Stop: 07/10/20 23:08 Last Admin: 07/10/20 03:13 Dose: 50 mls/hr Documented by: [id number] Lisinopril (Lisinopril 5 Mg Tab) 5 mg PO QAM [facility] Stop: 08/09/20 03:39 Last Admin: 07/10/20 04:35 Dose: 5 mg Documented by: [id number] Multivitamins (Multivitamin Tab) 1 tab PO DAILY [facility] Stop: 08/09/20 08:59 Last Admin: 07/10/20 07:46 Dose: 1 tab Documented by: [id number] Thiamine HCl (Thiamine Hcl 100 Mg Tab) [facility] Stop: 08/09/20 02:15 Last Admin: 07/10/20 07:47 Dose: 100 mg Documented by: [id number] Admin: 07/10/20 03:12 Dose: 100 mg Documented by: [id number] Coding Level of Care Code 16794 U Intl Hosp Care Lvl 2
[2020-07-10 11:32] LABS: BUN Creatinine Ratio 5.8 (10-20); Calcium 7.7 mg/dl (8.5-10.1); Creatinine Clr Calc Pharmacy 176.6 ml/min; Est GFR (African American) 135.3; Est GFR (Non-African American) 116.7
[2020-07-10] MEDS: hydrOXYzine HCl 25 MG TAB PO PRN ×2 (11:33→21:06)
--- NOTE | 2020-07-10 12:09 | Electrocardiogram Report ---
Test Reason : Blood Pressure : / mmHG Vent. Rate : 083 BPM Atrial Rate : 083 BPM P-R Int : 158 ms QRS Dur : 098 ms QT Int : 400 ms P-R-T Axes : 022 004 001 degrees QTc Int : 470 ms Normal sinus rhythm Normal ECG No previous ECGs available Confirmed by Luis Layne ([id number]) on 07/10/2020 12:09:41 PM Referred By: REFERRED SELF Confirmed By:Luis Layne
[2020-07-10] MEDS ORDERED: POTASSIUM CHLORIDE CRTAB 20 MEQ TABCR PO ONE (13:54)
--- NOTE | 2020-07-10 14:52 | Hospitalist Progress Note ---
Date of Service July 10, 2020 Assessment & Plan (1) Asymptomatic hypertensive urgency: Hypertensive urgency Likely situational secondary to alcohol withdrawal Continue lisinopril Blood pressure better today Monitor Alcohol withdrawal Alcohol use disorder Possible Alcoholic hepatitis Hepatic steatosis --Liver USD:No cholelithiasis or sonographic evidence of acute cholecystitis. Hepatic steatosis. Ill-defined hypoechoic area near the gracie hepatis measuring up to approximately 5.2 cm may reflect fatty sparing. This finding could be confirmed with a follow-up CT or MRI liver protocol if of further clinical concern. No biliary ductal dilation. 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 Thrombocytopenia Secondary to alcoholic liver disease No obvious bleeding issues Monitor UTI Urine culture pending Continue Rocephin for now Obesity H/O gastric bypass BMI 39.8 Ongoing tobacco abuse Visual Education Director to quit DVT Px: SCDs Re: Thrombocytopenia Code Status Full code Admission and Anticipated Discharge Date Admission Date: July 09, 2020 Subjective Patient is seen and examined at bedside States having tremor from alcohol withdrawal Admits to having depression but denies any suicidal ideation Currently not interested in inpatient rehab placement Denies chest pain, dyspnea, dizziness, nausea, abdominal pain Offers no other complaints Review of Systems Review of Systems: All systems reviewed & are unremarkable except as noted in HPI & below Physical Exam Physical Exam: Physical Exam: Vitals signs as noted above General Appearance:Obese, no apparent distress Head: normocephalic, Atraumatic Eyes: normal inspection, EOMI Neck: supple, Trachea midline Respiratory/Chest: Normal breath sounds, CTA, No accessory muscle use Cardiovascular: S1, S2, No murmur Abdomen/GI:Soft, Non tender, Bowel sounds present Extremities/Musculoskelatal:normal inspection, no edema Neurologic/Psych:AAOX3, grossly no focal neurological deficits Skin: normal color, warm Results & Data Results & Data ([facility]) Vital Signs (Past 12 Hours) Vital Signs Temp Pulse Pulse Resp BP Pulse Ox 07/10/20 11:20 36.8 C 90 18 134/78 97 07/10/20 08:31 81 07/10/20 07:23 36.6 C 86 17 155/92 H 97 07/10/20 04:36 36.6 C 86 18 147/96 H 94 Laboratory Results Short CBC 07/09/20 07/10/20 Range/Units 22:15 06:40 WBC 4.45 L 4.57 L (4.8-10.8) K/uL Hgb 16.3 14.3 (14.0-18.0) g/dL Hct 45.3 41.7 L (42-52) % Plt Count 85 L 56 L (130-400) K/uL BMP 07/09/20 07/10/20 07/10/20 22:15 06:42 11:00 Sodium 138 139 136 Potassium 2.3 L* 2.9 L D 3.0 L Chloride 95 L 101 100 Carbon Dioxide 29 28 27 BUN 5 L 4 L 5 L Creatinine 0.82 0.69 0.77 Glucose 116 H 100 H 176 H Calcium 7.3 L 7.1 L 7.7 L Liver Function 07/09/20 07/10/20 Range/Units 22:15 06:42 Total Bilirubin 2.4 H 1.8 H (0.2-1) mg/dl AST 481 H 383 H (15-37) U/L ALT 122 H 96 H (12-78) U/L Alkaline Phosphatase 308 H 238 H (45-117) U/L Albumin 3.2 L 2.5 L (3.4-5.0) gm/dl Urine 07/09/20 Range/Units 21:23 Urine Color Dark Yellow Urine Appearance Clear (Clear) Urine pH 6.0 (4.5-7.5) Ur Specific [place] 1.025 (1.000-1.030) Urine Protein 3+ H (Negative) Urine Glucose (UA) Negative (Negative)
[2020-07-10] MEDS: CALCIUM CITRATE 950 MG TAB PO SCH (16:37)
[2020-07-11] MEDS: cefTRIAXone SODIUM 2,000 MG in DEXTROSE 5% 50 ML IV SCH (01:11)
[2020-07-11] MEDS: hydrOXYzine HCl 25 MG TAB PO PRN ×3 (01:12→20:08)
[2020-07-11] MEDS: GABAPENTIN 600 MG TAB PO SCH ×2 (03:43→12:02)
[2020-07-11 06:25] LABS: Hematocrit (blood only) 42.7 % (42-52); Hemoglobin 14.5 g/dL (14.0-18.0); Mean Corpuscular Hemoglobin 31.9 pg (25-34); Mean Corpuscular Volume 94.1 fL (80-100); Mean Platelet Volume 12.2 fL (7.4-10.4); Platelet Count 44 K/uL (130-400); RDW Coefficient of Variation 18.2 % (11.5-14.5); RDW Standard Deviation 62.2 fL (36.4-46.3); Red Blood Count 4.54 M/uL (4.7-6.1); White Blood Count 3.39 K/uL (4.8-10.8)
[2020-07-11 07:00] LABS: Albumin Globulin Ratio 0.6 (0.9-2); Albumin Level 2.5 gm/dl (3.4-5.0); BUN Creatinine Ratio 8.4 (10-20); Bilirubin,Total 3.1 mg/dl (0.2-1); Creatinine Clr Calc Pharmacy 199.9 ml/min; Est GFR (African American) 142.4; Est GFR (Non-African American) 122.9; Globulin 3.9 gm/dl (2.5-4.0); Magnesium 1.5 mg/dl (1.8-2.4); Potassium 3.1 mmol/L (3.5-5.1); Total Protein 6.4 gm/dl (6.4-8.2)
[2020-07-11] MEDS ORDERED: POTASSIUM CHLORIDE CRTAB 20 MEQ TABCR PO ONE ×2 (08:02→14:00)
[2020-07-11] MEDS: MULTIVITAMIN TAB PO SCH (08:09)
[2020-07-11] MEDS: CYANOCOBALAMIN (VITAMIN B-12) 100 MCG TABLET PO SCH (08:09)
[2020-07-11] MEDS: THIAMINE HCL 100 MG TAB PO SCH (08:09)
[2020-07-11] MEDS: lisinopril 5 MG TAB PO SCH (08:09)
[2020-07-11] MEDS: CALCIUM CITRATE 950 MG TAB PO SCH ×3 (08:10→15:53)
[2020-07-11] MEDS: FOLIC ACID 1 MG TAB PO SCH (08:10)
[2020-07-11] MEDS: CHOLECALCIFEROL 400 UNITS 10 MCG TAB PO SCH (08:10)
[2020-07-11] MEDS: MAGNESIUM SULFATE / D5W 1 GM/100 ML BAG IV SCH ×2 (08:26→10:26)
--- NOTE | 2020-07-11 14:42 | Hospitalist Progress Note ---
Date of Service July 11, 2020 Assessment & Plan (1) Asymptomatic hypertensive urgency: Hypertensive urgency Likely situational secondary to alcohol withdrawal Continue lisinopril Blood pressure better Monitor Alcohol withdrawal Alcohol use disorder Less likely Alcoholic hepatitis Hepatic steatosis --Liver USD:No cholelithiasis or sonographic evidence of acute cholecystitis. Hepatic steatosis. Ill-defined hypoechoic area near the gracie hepatis measuring up to approximately 5.2 cm may reflect fatty sparing. This finding could be confirmed with a follow-up CT or MRI liver protocol if of further clinical concern. No biliary ductal dilation. Continue gabapentin protocol Lorazepam as needed Monitor for DTs Continue thiamine, folic acid Counseled to quit alcohol use Currently patient is not interested in inpatient rehab but agrees with outpatient D&A Plans to follow up with AA upon discharge Monitor LFTs Appreciate psychiatry input Continue current management Hypokalemia Hypomagnesemia Replace electrolytes as needed Monitor Prediabetes HbA1c 6.0 Compensator dietary changes Thrombocytopenia Secondary to alcoholic liver disease No obvious bleeding issues Monitor UTI Urine culture pending Continue Rocephin Obesity H/O gastric bypass BMI 39.8 Ongoing tobacco abuse Compensator to quit DVT Px: SCDs Re: Thrombocytopenia Code Status Full code Admission and Anticipated Discharge Date Admission Date: July 09, 2020 Subjective Patient is seen and examined at bedside States feeling better today Less tremor today Dizziness better as well Denies chest pain, dyspnea, dizziness, nausea, abdominal pain Review of Systems Review of Systems: As per HPI, all 10 systems reviewed, all other ROS negative Physical Exam Physical Exam: Physical Exam: Vitals signs as noted above General Appearance:Obese, no apparent distress Head: normocephalic, Atraumatic Eyes: normal inspection, EOMI Neck: supple, Trachea midline Respiratory/Chest: Normal breath sounds, CTA, No accessory muscle use Cardiovascular: S1, S2, No murmur Abdomen/GI:Soft, Non tender, Bowel sounds present Extremities/Musculoskelatal:normal inspection, no edema Neurologic/Psych:AAOX3, grossly no focal neurological deficits Skin: normal color, warm Results & Data Results & Data ([facility]) Vital Signs (Past 12 Hours) Vital Signs Temp Pulse Pulse Resp BP BP Pulse Ox 07/11/20 11:25 37.1 C 93 H 18 127/73 94 07/11/20 08:00 92 H 07/11/20 07:27 36.9 C 87 17 145/85 H 95 07/11/20 04:51 36.9 C 101 H 18 127/94 97 07/11/20 03:37 36.8 C 105 H 19 171/95 H 95 Laboratory Results Short CBC 07/11/20 Range/Units 05:52 WBC 3.39 L (4.8-10.8) K/uL Hgb 14.5 (14.0-18.0) g/dL Hct 42.7 (42-52) % Plt Count 44 L (130-400) K/uL BMP 07/11/20 05:52 Sodium 136 Potassium 3.1 L Chloride 101 Carbon Dioxide 27 BUN 6 L Creatinine 0.68 Glucose 101 H Calcium 8.0 L Liver Function 07/11/20 Range/Units 05:52 Total Bilirubin 3.1 H D (0.2-1) mg/dl AST 415 H (15-37) U/L ALT 101 H (12-78) U/L Alkaline Phosphatase 277 H (45-117) U/L Albumin 2.5 L (3.4-5.0) gm/dl
[2020-07-12] MEDS: cefTRIAXone SODIUM 2,000 MG in DEXTROSE 5% 50 ML IV SCH (01:00)
[2020-07-12] MEDS: GABAPENTIN 600 MG TAB PO SCH ×2 (01:02→13:13)
[2020-07-12] MEDS: hydrOXYzine HCl 25 MG TAB PO PRN ×3 (01:03→20:38)
[2020-07-12 06:46] LABS: Hematocrit (blood only) 38.6 % (42-52); Hemoglobin 13.5 g/dL (14.0-18.0); Mean Corpuscular Hemoglobin 32.6 pg (25-34); Mean Corpuscular Volume 93.2 fL (80-100); Mean Platelet Volume 12.1 fL (7.4-10.4); Platelet Count 41 K/uL (130-400); RDW Coefficient of Variation 17.9 % (11.5-14.5); RDW Standard Deviation 60.5 fL (36.4-46.3); Red Blood Count 4.14 M/uL (4.7-6.1); White Blood Count 4.23 K/uL (4.8-10.8)
[2020-07-12 06:48] LABS: INR 1.5 (0.9-1.1); Prothrombin Time 14.5 Seconds (9.0-12.0)
[2020-07-12 07:00] LABS: Albumin Level 2.4 gm/dl (3.4-5.0); BUN Creatinine Ratio 5.1 (10-20); Bilirubin,Total 4.4 mg/dl (0.2-1); Creatinine Clr Calc Pharmacy 194.2 ml/min; Est GFR (African American) 140.7; Est GFR (Non-African American) 121.4; Magnesium 1.5 mg/dl (1.8-2.4)
[2020-07-12 07:10] LABS: Albumin Globulin Ratio 0.6 (0.9-2); Globulin 3.8 gm/dl (2.5-4.0); Total Protein 6.2 gm/dl (6.4-8.2)
[2020-07-12] MEDS ORDERED: POTASSIUM CHLORIDE CRTAB 20 MEQ TABCR PO ONE ×2 (07:44→16:00)
[2020-07-12] MEDS ORDERED: cloNIDine HCL 0.1 MG TAB PO PRN (07:54)
[2020-07-12] MEDS: MAGNESIUM SULFATE / D5W 1 GM/100 ML BAG IV SCH ×2 (08:29→10:59)
[2020-07-12] MEDS: CALCIUM CITRATE 950 MG TAB PO SCH ×3 (08:30→17:53)
[2020-07-12] MEDS: CYANOCOBALAMIN (VITAMIN B-12) 100 MCG TABLET PO SCH (08:31)
[2020-07-12] MEDS: MULTIVITAMIN TAB PO SCH (08:31)
[2020-07-12] MEDS: FOLIC ACID 1 MG TAB PO SCH (08:31)
[2020-07-12] MEDS: THIAMINE HCL 100 MG TAB PO SCH (08:31)
[2020-07-12] MEDS: CHOLECALCIFEROL 400 UNITS 10 MCG TAB PO SCH (08:32)
[2020-07-12] MEDS: lisinopril 5 MG TAB PO SCH (08:32)
--- NOTE | 2020-07-12 09:09 | Gastrointestinal Consultation ---
Date of Consultation July 12, 2020 Assessment & Plan (1) Elevated LFTs: Likely secondary to mild alcoholic hepatitis. DF = 15.9, so no indication for steroids or trental tx at this time. MRCP to r/o biliary obstruction Liver MRI to r/o discrete liver lesion vs. fatty liver with focal sparing. (2) Alcoholic liver disease: Supervising Physician Co-Signing Physician Notes Attg add: I interviewed and examined pt, reviewed chart and labs. Pt with h/o EtOh abuse, admit with HTN urgency, noted to have increased LFT's. AST>> ALT, AP and bili also increased, lipase 1.5 x ULN. Uls without donna dil, possibly foc al fat. DF 16. Recommend follow LFT's, request MRCP to w/u AP elevation and liver MRI when medically stable. History of Present Illness Reason for Consultation: ? alcoholic hepatitis Requesting Physician: Dr. Tejada Attending Physician: Kwan Tejada MD History of Present Illness Mr. Parag Zamora is a 35 yr old male pt of Dr. Fernandez with a hx of post RYGB, HTN, depression, alcohol abuse who previously underwent rehab with a period of sobriety but relapsed 2 months ago and his most recent drink was on 07/10/20. He presented to the ED yesterday for "feeling like my brain is on fired." He was admitted for hypertensive urgency. LFTs are elevated. T Bili is 4.4 up from 2.4 a few days ago. Liver US with normal bile ducts (though there is a question of a 5cm liver lesion vs. fatty liver with focal sparing). Pt tells us that he has been drinking a fifth a day and that he is motivated to stop drinking. He plans OP counselling and AA. He denies any abd pain, N/V, jaundice, icterus and tells us that he feels better today compared to the time of his admission. Allergies Allergy/AdvReac Type Severity Reaction Status Date / Time Penicillins Allergy Verified 07/09/20 22:00 Sulfa (Sulfonamide Allergy Verified 07/09/20 22:00 Antibiotics) sulfamethoxazole Allergy Verified 06/04/09 02:53 Home Medications Medication Instructions Recorded Confirmed Type multivitamin [Multiple Vitamins] 1 tab PO DAILY 03/12/21 03/12/21 History Patient History Medical History Alcoholism Surgical History H/O gastric bypass Social History Smoking Status: Current some day smoker Second Hand Exposure: No; Do You Dip or Chew Tobacco: No; Tobacco Cessation Education Requested by Patient: No Hx Alcohol Use: Yes Alcohol type: hard liquor Hx Substance Use: No Preferred Language: German Communication Ability: Effective Band Leader Required: No Beliefs That Will Affect Care: None Current Living Situation: Spouse Other Information That Helps Us Care for You: No Feels Safe at Home: Yes Safety Concerns: Feels Safe At This Time Assistive Devices: None Review of Systems Review of Systems: ROS: Gen: Denies weakness, fevers, weight loss Eyes: No eye redness, or pain, no recent vision changes Resp: No SOB, no cough Cardio: No palpitations/irregular beats, no chest pain GI: No abdominal pain, no nausea/vomiting : Denies pain on urination Skin: No jaundice, itching or new rashes Physical Exam Constitutional: WD/WN, vitals as above well nourished, + obese and cooperative Eyes: PERRL, conjunctivae normal, anicteric sclerae ENMT: external ear and nose normal, oropharynx normal Neck: trachea midline, no thyromegaly Thyroid: normal thyroid Respiratory: normal respiratory effort, lungs clear to auscultation Cardiovascular: RRR, no murmur, no edema Gastrointestinal (Abdomen): Inspection/Auscultation: abdomen not distended Percussion/Palpation: abdomen soft Liver border is palpable 2 fingers below the right costal boarder. Non tender. No palpable splenomegaly. Musculoskeletal: no cyanosis or clubbing, extremities motor strength 5/5 Skin: no rashes, warm and dry no jaundice Neurologic: PERRL, EOMI, accommodation nl, no face palsy, no dysarthria Psychiatric: A+Ox3, euthymic affect Lymphatic: no cervical or axillary lymphadenopathy Results & Data ([facility]) Vital Signs (Past 12 Hours) Vital Signs Temp Pulse Pulse Resp BP Pulse Ox 07/12/20 07:46 36.7 C 90 16 175/122 H 99 07/12/20 03:39 37.0 C 95 H 18 155/96 H 97 07/11/20 23:48 36.8 C 101 H 18 145/103 H 96 07/11/20 22:20 112 H Laboratory Results WBC 4.23, Hb 13, Hct 38, platelets 41, Na 138, K 3.0, BUN 4, Cr 0.7. Diagnostic Findings Liver US 07/10/20: 1. No cholelithiasis or sonographic evidence of acute cholecystitis. 2. Hepatic steatosis. Ill-defined hypoechoic area near the gracie hepatis measuring up to approximately 5.2 cm may reflect fatty sparing. This finding could be confirmed with a follow-up CT or MRI liver protocol if of further clinical concern. 3. No biliary ductal dilation.
--- NOTE | 2020-07-12 17:14 | Hospitalist Progress Note ---
Date of Service July 12, 2020 Assessment & Plan (1) Asymptomatic hypertensive urgency: Hypertensive urgency Likely situational secondary to alcohol withdrawal Continue lisinopril Blood pressure variable likely secondary to alcohol withdrawal We will add clonidine as needed Monitor Alcohol withdrawal Alcohol use disorder Less likely Alcoholic hepatitis Hepatic steatosis --Liver USD:No cholelithiasis or sonographic evidence of acute cholecystitis. Hepatic steatosis. Ill-defined hypoechoic area near the gracie hepatis measuring up to approximately 5.2 cm may reflect fatty sparing. This finding could be confirmed with a follow-up CT or MRI liver protocol if of further clinical bella rn. No biliary ductal dilation. 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 Thrombocytopenia Secondary to alcoholic liver disease No obvious bleeding issues Monitor UTI ruled out Urine culture: Negative Rocephin discontinued Obesity H/O gastric bypass BMI 39.8 Ongoing tobacco abuse 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 DVT Px: SCDs Re: Thrombocytopenia Code Status Full code Admission and Anticipated Discharge Date Admission Date: July 09, 2020 Subjective Patient is seen and examined at bedside States having transient dizziness associated with nausea earlier today which currently resolved Tremor much improved today Denies chest pain, dyspnea, dizziness, nausea, abdominal pain GI planning to do MRCP Review of Systems Review of Systems: All systems reviewed & are unremarkable except as noted in HPI & below Physical Exam Physical Exam: Physical Exam: Vitals signs as noted above General Appearance:Obese, no apparent distress Head: normocephalic, Atraumatic Eyes: normal inspection, EOMI Neck: supple, Trachea midline Respiratory/Chest: Normal breath sounds, CTA, No accessory muscle use Cardiovascular: S1, S2, No murmur Abdomen/GI:Soft, Non tender, Bowel sounds present Extremities/Musculoskelatal:normal inspection, no edema Neurologic/Psych:AAOX3, grossly no focal neurological deficits Skin: normal color, warm Results & Data Results & Data ([facility]) Vital Signs (Past 12 Hours) Vital Signs Temp Pulse Pulse Resp BP Pulse Ox 07/12/20 16:00 91 H 07/12/20 15:19 36.5 C 84 20 136/85 95 07/12/20 11:45 36.8 C 102 H 18 146/102 H 95 07/12/20 08:00 104 H 07/12/20 07:46 36.7 C 90 16 175/122 H 99 Laboratory Results Short CBC 07/12/20 Range/Units 06:21 WBC 4.23 L (4.8-10.8) K/uL Hgb 13.5 L (14.0-18.0) g/dL Hct 38.6 L (42-52) % Plt Count 41 L (130-400) K/uL BMP 07/12/20 06:21 Sodium 138 Potassium 3.0 L Chloride 103 Carbon Dioxide 29 BUN 4 L Creatinine 0.70 Glucose 88 Calcium 8.0 L Liver Function 07/12/20 Range/Units 06:21 Total Bilirubin 4.4 H (0.2-1) mg/dl AST 228 H (15-37) U/L ALT 76 (12-78) U/L Alkaline Phosphatase 254 H (45-117) U/L Albumin 2.4 L (3.4-5.0) gm/dl
[2020-07-12] MEDS ORDERED: GADOXETATE DISODIUM IV ONE (21:35)
[2020-07-13] MEDS: hydrOXYzine HCl 25 MG TAB PO PRN ×3 (06:42→18:28)
[2020-07-13 06:43] LABS: Hematocrit (blood only) 41.3 % (42-52); Hemoglobin 13.7 g/dL (14.0-18.0); Mean Corpuscular Hemoglobin 31.7 pg (25-34); Mean Corpuscular Hgb Conc 33.2 g/dL (32-36); Mean Corpuscular Volume 95.6 fL (80-100); RDW Coefficient of Variation 18.3 % (11.5-14.5); RDW Standard Deviation 63.4 fL (36.4-46.3); Red Blood Count 4.32 M/uL (4.7-6.1)
[2020-07-13 06:44] LABS: Mean Platelet Volume 11.8 fL (7.4-10.4); Platelet Count 45 K/uL (130-400)
[2020-07-13 06:55] LABS: INR 1.4 (0.9-1.1); Prothrombin Time 13.8 Seconds (9.0-12.0)
[2020-07-13 07:15] LABS: Albumin Level 2.4 gm/dl (3.4-5.0); Calcium 8.8 mg/dl (8.5-10.1); Creatinine Clr Calc Pharmacy 167.8 ml/min; Est GFR (African American) 131.9; Est GFR (Non-African American) 113.8; Potassium 3.3 mmol/L (3.5-5.1)
[2020-07-13 07:21] LABS: Albumin Globulin Ratio 0.6 (0.9-2); Bilirubin,Total 4.9 mg/dl (0.2-1); Globulin 3.8 gm/dl (2.5-4.0); Total Protein 6.2 gm/dl (6.4-8.2)
--- NOTE | 2020-07-13 08:03 | Magnetic Resonance Report ---
MR abdomen wo/w con HISTORY: Possible hepatic lesion. Follow-up. TECHNIQUE: Multiplanar multisequence MRI of the abdomen was performed both before and after the intra venous administration of 10 cc of Eovist contrast to evaluate the liver. COMPARISON STUDY: Abdominal ultrasound 07/10/2020. FINDINGS: The lung bases are clear. The liver is enlarged measuring 29 cm in length. The spleen is at the upper limits of normal measuring 11.5 cm in length. No hepatic or splenic masses. There is diffu se hepatic steatosis. The question of abnormality seen on the prior ultrasound is not identified on t his examination. The kidneys are unremarkable. No hydronephrosis. Normal pancreas and adrenal glands. No gallbladder wall thickening. No gallstones. No filling defects within the normal caliber common b ile duct and main pancreatic duct. There is minimal periportal edema. There is also trace pericholecy stic fluid along the hepatic surface is also likely due to the periportal edema. There is trace bilat eral perinephric edema. The main portal vein and hepatic veins are patent. IMPRESSION: 1. Hepatomegaly demonstrating diffuse steatosis. No lesions identified. 2. Minimal periportal edema. 3. No gallstones. ACT 112: Negative or not required by law. Electronically signed by: Amish Noe M.D. 07/13/2020 8:02 AM
[2020-07-13] MEDS: THIAMINE HCL 100 MG TAB PO SCH (08:10)
[2020-07-13] MEDS: lisinopril 5 MG TAB PO SCH (08:10)
[2020-07-13] MEDS: FOLIC ACID 1 MG TAB PO SCH (08:10)
[2020-07-13] MEDS: CALCIUM CITRATE 950 MG TAB PO SCH ×3 (08:10→17:15)
[2020-07-13] MEDS: MULTIVITAMIN TAB PO SCH (08:10)
[2020-07-13] MEDS: CYANOCOBALAMIN (VITAMIN B-12) 100 MCG TABLET PO SCH (08:10)
[2020-07-13] MEDS: CHOLECALCIFEROL 400 UNITS 10 MCG TAB PO SCH (08:13)
[2020-07-13] MEDS ORDERED: POTASSIUM CHLORIDE CRTAB 20 MEQ TABCR PO ONE (09:07)
[2020-07-13] MEDS ORDERED: MAGNESIUM SULFATE / D5W 1 GM/100 ML BAG IV ONE (09:30)
[2020-07-13] MEDS ORDERED: GABAPENTIN 600 MG TAB PO SCH (13:00)
--- NOTE | 2020-07-13 15:06 | Hospitalist Progress Note ---
Date of Service July 13, 2020 Assessment & Plan (1) Asymptomatic hypertensive urgency: Hypertensive urgency Likely situational secondary to alcohol withdrawal Continue lisinopril Blood pressure variable likely secondary to alcohol withdrawal clonidine as needed Monitor Alcohol withdrawal Alcohol use disorder Less likely Alcoholic hepatitis Hepatic steatosis --Liver USD:No cholelithiasis or sonographic evidence of acute cholecystitis. Hepatic steatosis. Ill-defined hypoechoic area near the gracie hepatis measuring up to approximately 5.2 cm may reflect fatty sparing. This finding could be confirmed with a follow-up CT or MRI liver protocol if of further clinical concern. No biliary ductal dilation. Continue gabapentin protocol --MRCP:Hepatomegaly demonstrating diffuse steatosis. No lesions identified. Minimal periportal edema. No gallstones. 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 Thrombocytopenia Secondary to alcoholic liver disease No obvious bleeding issues Monitor UTI ruled out Urine culture: Negative Rocephin discontinued Obesity H/O gastric bypass BMI 39.8 Ongoing tobacco abuse 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 DVT Px: SCDs Re: Thrombocytopenia Code Status Full code Admission and Anticipated Discharge Date Admission Date: July 09, 2020 Subjective Patient is seen and examined at bedside Reports nausea but no vomiting Sinus tachycardia on monitor Total bilirubin increased to 4.9 Subjectively denies any significant alcohol withdrawal symptoms Denies chest pain, dyspnea, dizziness, abdominal pain Review of Systems Review of Systems: All systems reviewed & are unremarkable except as noted in HPI & below Physical Exam Physical Exam: Physical Exam: Vitals signs as noted above General Appearance:Obese, no apparent distress Head: normocephalic, Atraumatic Eyes: normal inspection, EOMI Neck: supple, Trachea midline Respiratory/Chest: Normal breath sounds, CTA, No accessory muscle use Cardiovascular: S1, S2, No murmur Abdomen/GI:Soft, Non tender, Bowel sounds present Extremities/Musculoskelatal:normal inspection, no edema Neurologic/Psych:AAOX3, grossly no focal neurological deficits Skin: normal color, warm Results & Data Results & Data ([facility]) Vital Signs (Past 12 Hours) Vital Signs Temp Pulse Pulse Resp BP BP Pulse Ox 07/13/20 11:31 36.8 C 102 H 18 147/95 H 99 07/13/20 08:06 36.7 C 118 H 18 144/96 H 98 07/13/20 08:00 92 H 07/13/20 03:20 36.9 C 88 16 123/73 96 Laboratory Results Short CBC 07/13/20 Range/Units 06:14 WBC 4.50 L (4.8-10.8) K/uL Hgb 13.7 L (14.0-18.0) g/dL Hct 41.3 L (42-52) % Plt Count 45 L (130-400) K/uL BMP 07/13/20 06:14 Sodium 138 Potassium 3.3 L Chloride 104 Carbon Dioxide 29 BUN 3 L Creatinine 0.82 Glucose 90 Calcium 8.8 Liver Function 07/13/20 Range/Units 06:14 Total Bilirubin 4.9 H (0.2-1) mg/dl AST 161 H (15-37) U/L ALT 64 (12-78) U/L Alkaline Phosphatase 240 H (45-117) U/L Albumin 2.4 L (3.4-5.0) gm/dl
[2020-07-13] MEDS: POTASSIUM CHLORIDE CRTAB 20 MEQ TABCR PO SCH (20:50)
[2020-07-14] MEDS: hydrOXYzine HCl 25 MG TAB PO PRN ×3 (02:38→15:59)
[2020-07-14 07:48] LABS: Hematocrit (blood only) 41.2 % (42-52); Hemoglobin 14.1 g/dL (14.0-18.0); Mean Corpuscular Hemoglobin 32.4 pg (25-34); Mean Corpuscular Hgb Conc 34.2 g/dL (32-36); Mean Corpuscular Volume 94.7 fL (80-100); Mean Platelet Volume 11.8 fL (7.4-10.4); Platelet Count 78 K/uL (130-400); RDW Coefficient of Variation 18.7 % (11.5-14.5); RDW Standard Deviation 64.2 fL (36.4-46.3); Red Blood Count 4.35 M/uL (4.7-6.1); White Blood Count 5.11 K/uL (4.8-10.8)
[2020-07-14 07:51] LABS: INR 1.3 (0.9-1.1); Prothrombin Time 12.7 Seconds (9.0-12.0)
[2020-07-14 08:24] LABS: Albumin Globulin Ratio 0.7 (0.9-2); Albumin Level 2.6 gm/dl (3.4-5.0); BUN Creatinine Ratio 3.2 (10-20); Bilirubin,Total 6.4 mg/dl (0.2-1); Calcium 9.2 mg/dl (8.5-10.1); Creatinine Clr Calc Pharmacy 175.2 ml/min; Est GFR (African American) 133.9; Est GFR (Non-African American) 115.5; Magnesium 1.6 mg/dl (1.8-2.4); Potassium 3.2 mmol/L (3.5-5.1); Total Protein 6.6 gm/dl (6.4-8.2)
[2020-07-14] MEDS: CHOLECALCIFEROL 400 UNITS 10 MCG TAB PO SCH (08:54)
[2020-07-14] MEDS: CYANOCOBALAMIN (VITAMIN B-12) 100 MCG TABLET PO SCH (08:54)
[2020-07-14] MEDS: THIAMINE HCL 100 MG TAB PO SCH (08:54)
[2020-07-14] MEDS: lisinopril 5 MG TAB PO SCH (08:54)
[2020-07-14] MEDS: POTASSIUM CHLORIDE CRTAB 20 MEQ TABCR PO SCH (08:55)
[2020-07-14] MEDS: FOLIC ACID 1 MG TAB PO SCH (08:55)
[2020-07-14] MEDS: MULTIVITAMIN TAB PO SCH (08:55)
[2020-07-14] MEDS: CALCIUM CITRATE 950 MG TAB PO SCH ×2 (08:55→13:57)
[2020-07-14] MEDS: POTASSIUM CHLORIDE CRTAB 20 MEQ TABCR PO STA ×2 (10:42→11:17)
[2020-07-14] MEDS ORDERED: MAGNESIUM SULFATE / D5W 1 GM/100 ML BAG IV ONE (11:00)
[2020-07-14] MEDS ORDERED: POTASSIUM CHLORIDE PWD 20 MEQ PACK PO ONE (11:30)
--- NOTE | 2020-07-14 14:26 | Hospitalist Progress Note ---
Date of Service July 14, 2020 Assessment & Plan (1) Asymptomatic hypertensive urgency: Alcoholic hepatitis/hyperbilirubinemia History of long-term heavy alcohol abuse, admitted with alcohol withdrawal AST elevated to greater than ALT. INR 1.3 auto anticoagulated secondary to liver damage/alcoholic liver disease Bilirubin 6.7 today GI consulted, appreciate input Gallbladder on ultrasound shows no evidence of cholelithiasis or evidence of acute cholecystitis Hepatic steatosis MRCP hepatomegaly with diffuse steatosis, no gallstone Per gastroenterology patient is stable to be discharged home, will be seen at gastroenterology clinic, repeat lab work in a week Strict alcohol abstinence recommended Hypertensive urgency Likely situational secondary to alcohol withdrawal Blood pressure stable, Started on lisinopril during this hospital stay, will be discharged on lisinopril 5 mg daily Clinic follow-up with family physician for blood pressure management Alcohol withdrawal Alcohol use disorder No evidence of DT Continue thiamine, folic acid Counseled to quit alcohol use patient is not interested in inpatient rehab but agrees with outpatient D&A Plans to follow up with AA upon discharge Hypokalemia Hypomagnesemia Due to alcohol abuse, corrected Or repeat lab work as an outpatient Thrombocytopenia Secondary to alcoholic liver disease No obvious bleeding issues She should avoid aspirin, NSAIDs Obesity H/O gastric bypass BMI 39.8 Ongoing tobacco abuse [employer]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 Patient reports he feels much better, denies of any abdominal pain no dizzy spell or lightheadedness Vitals stable No sign symptoms of alcohol withdrawal. Eager to be discharged home today Discussed with gastroenterology, patient will be seen at the GI clinic within a week repeat lab work will be done, Extensive counseling provided to patient, regarding strict alcohol abstinence, risk of fulminant liver failure, if continues to drink- Patient voiced understanding, already scheduled for outpatient alcohol rehab and counseling Review of Systems Review of Systems: All systems reviewed & are unremarkable except as noted in Subjective Physical Exam Physical Exam: Physical exam: General: No acute distress, alert awake oriented x3 HEENT: Sclera anicteric, bilateral equal and reactive to light, extraocular muscles intact Heart: Regular S1-S2, no carotid bruit, no JVD, no lower extremity edema Lungs: Clear to auscultate, no wheeze or rales Abdomen: Soft nontender, no organomegaly Extremity: No cyanosis, no deformity, normal strength 5 out of 5 with upper and lower Neuro: No focal neurological deficit normal speech, normal visual field, Motor strength : normal both upper and lower extremity, sensation intact Psych: Alert awake oriented x3, normal affect Results & Data Results & Data ([facility]) Vital Signs (Past 12 Hours) Vital Signs Temp Pulse Pulse Resp BP Pulse Ox 07/14/20 11:21 36.9 C 108 H 143/98 H 97 07/14/20 07:26 83 07/14/20 07:19 36.8 C 102 H 19 131/84 95 07/14/20 03:54 37.3 C 94 H 19 141/89 H 96
--- NOTE | 2020-07-14 14:57 | Gastroenterology Progress Note ---
Date of Service July 14, 2020 Assessment & Plan (1) Elevated LFTs: Secondary to alcoholic hepatitis. DF = 9 from today's labs: T Bili 6, PT 12.7. = No indication for steroids or Trental tx at this time. No symptoms of biliary obstruction; Imaging w/o suggestion of biliary obstruction or liver lesion. Needs complete, life long ETOH cessation, discussed importance with the pt. Our office will contact him with an OP GI f/u for next week. Will recheck labs at that time. GI will sign off. OK for DC from GI perspective. (2) Alcoholic liver disease: Admission and Anticipated Discharge Date Admission Date: July 09, 2020 Supervising Physician Co-Signing Physician Notes Attg add: I interviewed and examined pt, reviewed chart and labs. Pt with rise in bili, with fall in AP and transaminases, stable creat, stable hgb, stable INR. Pt asymptomatic. Pt had liver uls and liver MRI which showed steatosis, no donna dil. Suspect bili related to alc hep. Recheck MELD labs in 3-5 days, and consider MRCP if increasing. Subjective Patient is seen and examined at bedside Reports nausea but no vomiting Sinus tachycardia on monitor Total bilirubin increased to 4.9 Subjectively denies any significant alcohol withdrawal symptoms Denies chest pain, dyspnea, dizziness, abdominal pain Review of Systems Review of Systems: ROS: Gen: Denies weakness, fevers, weight loss Eyes: No eye redness, or pain, no recent vision changes Resp: No SOB, no cough Cardio: No palpitations/irregular beats, no chest pain GI: No abdominal pain, no nausea/vomiting : Denies pain on urination Skin: No jaundice, itching or new rashes Physical Exam Constitutional: WD/WN, vitals as above well nourished, + obese and cooperative Eyes: PERRL, conjunctivae normal, anicteric sclerae ENMT: external ear and nose normal, oropharynx normal Neck: trachea midline, no thyromegaly Thyroid: normal thyroid Respiratory: normal respiratory effort, lungs clear to auscultation Cardiovascular: RRR, no murmur, no edema Gastrointestinal (Abdomen): Inspection/Auscultation: abdomen not distended Percussion/Palpation: abdomen soft Musculoskeletal: no cyanosis or clubbing, extremities motor strength 5/5 Skin: no rashes, warm and dry Neurologic: PERRL, EOMI, accommodation nl, no face palsy, no dysarthria Psychiatric: A+Ox3, euthymic affect Lymphatic: no cervical or axillary lymphadenopathy Results & Data ([facility]) Vital Signs (Past 12 Hours) Vital Signs Temp Pulse Pulse Resp BP Pulse Ox 07/14/20 11:21 36.9 C 108 H 143/98 H 97 07/14/20 07:26 83 07/14/20 07:19 36.8 C 102 H 19 131/84 95 07/14/20 03:54 37.3 C 94 H 19 141/89 H 96 Laboratory Results WBC 5.1, Hb 14, Hct 41, Plts 78, Na 135, K 3.7, BUN 3, Cr 0.79 Diagnostic Findings MRCP 07/12/20: 1. Hepatomegaly demonstrating diffuse steatosis. No lesions identified. 2. Minimal periportal edema. 3. No gallstones. Liver US 07/10/20: 1. No cholelithiasis or sonographic evidence of acute cholecystitis. 2. Hepatic steatosis. Ill-defined hypoechoic area near the gracie hepatis measuring up to approximately 5.2 cm may reflect fatty sparing. This finding could be confirmed with a follow-up CT or MRI liver protocol if of further clinical concern. 3. No biliary ductal dilation.
--- NOTE | 2020-07-14 16:15 | Discharge Summary ---
Date of Service July 14, 2020 Admission HPI Per Admitting Provider History obtained from patient, family, and records. Medical history significant for hypertension, hyperlipidemia, mood disorder, history of gastric bypass (2005), ongoing tobacco/alcohol use. Patient admitted at [facility] drug rehab facility for alcohol detox last December 2019. Patient went back to drinking 2 months ago. " Brain on fire." Admits to bad depression but denies suicidality. Patient family has been talking to patient about detoxing since last week to fix his life. Last drink was yesterday. Patient denies chest pain, SOB, headache, cough symptoms. Denies abdominal pain, diarrhea. Poor appetite. Admits to urinary urgency. No prior history of alcohol withdrawal seizures or intubation for bad alcohol withdrawal. Medical History as above Surgical History : Gastric bypass, liver biopsy Family History : Alcoholism Personal/Social history : 3 cigarettes a day, alcohol abuse, [employer] work Principal Diagnosis Alcohol abuse, alcohol withdrawal Alcoholic liver disease/hepatitis Hypertension Discharge Exam Physical exam: General: No acute distress, alert awake oriented x3 HEENT: sclera icteric PERRLA, EOMI, Heart: Regular S1-S2, no carotid bruit, no JVD, no lower extremity edema Lungs: Clear to auscultate, no wheeze or rales Abdomen: Soft nontender, no organomegaly Extremity: No cyanosis, no deformity, normal strength 5 out of 5 with upper and lower Neuro: No focal neurological deficit normal speech, normal visual field, Motor strength : normal both upper and lower extremity, sensation intact Psych: Alert awake oriented x3, normal affect Discharge Data Allergies Allergy/AdvReac Type Severity Reaction Status Date / Time Penicillins Allergy Verified 07/09/20 22:00 Sulfa (Sulfonamide Allergy Verified 07/09/20 22:00 Antibiotics) sulfamethoxazole Allergy Verified 06/04/09 02:53 Consultations 07/09/20 22:50 ED Decision to Admit Stat 07/10/20 02:16 Consult Case Management - Discharge Planning Routine Consult Psychiatry Routine 07/12/20 08:04 Consult Gastroenterology Routine Ordered Studies 07/10/20 00:48 US liver Routine 07/12/20 11:03 MR abdomen wo/w con Routine Hospital Course (1) Asymptomatic hypertensive urgency: Alcoholic hepatitis/hyperbilirubinemia History of long-term heavy alcohol abuse, admitted with alcohol withdrawal AST elevated to greater than ALT. INR 1.3 auto anticoagulated secondary to liver damage/alcoholic liver disease Bilirubin 6.7 today GI consulted, appreciate input Gallbladder on ultrasound shows no evidence of cholelithiasis or evidence of acute cholecystitis Hepatic steatosis MRCP hepatomegaly with diffuse steatosis, no gallstone Per gastroenterology patient is stable to be discharged home, will be seen at gastroenterology clinic, repeat lab work in a week Strict alcohol abstinence recommended Hypertensive urgency Likely situational secondary to alcohol withdrawal Blood pressure stable, Started on lisinopril during this hospital stay, will be discharged on lisinopril 5 mg daily Clinic follow-up with family physician for blood pressure management Alcohol withdrawal Alcohol use disorder No evidence of DT Continue thiamine, folic acid Counseled to quit alcohol use patient is not interested in inpatient rehab but agrees with outpatient D&A Plans to follow up with AA upon discharge Hypokalemia Hypomagnesemia Due to alcohol abuse, corrected Or repeat lab work as an outpatient Thrombocytopenia Secondary to alcoholic liver disease No obvious bleeding issues She should avoid aspirin, NSAIDs Obesity H/O gastric bypass BMI 39.8 Ongoing tobacco abuse [employer] to quit DVT Px: SCDs Re: Thrombocytopenia Code Status Full code Disposition: Patient is discharged home today Total Time Total Time Spent Total Time Spent (In Minutes): approx 35 mins Total Time Includes: Examination of the Patient, Discharge Planning, Medication Reconciliation and Communication With Other Providers Discharge Plan Discharge Items Patient Disposition: Home - Self-Care Reason For Visit: HTN URG, ETOH WITHDRAWAL Discharge Diagnosis: Alcohol abuse, alcohol withdrawal Alcoholic liver disease/hepatitis Hypertension Condition on Discharge: Good Activity: Resume your previous activity Non-emergency contact: Primary Care Provider Call non-emergency contact if: you have any medication questions Follow-up/Referrals: [facility] [Outside] - 07/16/20 1:00 pm (appointment is via telehealth. If patient would like to see in person, that is available also.) [facility] [Outside] - 10/20/20 9:30 am (appt is in person. They request a 24 hr notice for cancellation or request to reschedule. If a patient becomes listed as a "no show" they will no longer be able to be seen at [facility]. ) Dina Pfeiffer CRNP [Nurse Practitioner] - (follow up in 1 week ) Romulo Fernandez MD [Outside Practitioners] - 07/20/20 11:20 am (Date & Time 07/20/2020 11:20 AM Provider Romulo Fernandez MD [facility] ) Diet: Regular Addtl Attending Provider Instructions: Please take all medications as instructed on discharge list below. It is recommended that you follow-up with your primary care physician within 1-2 weeks of hospital discharge to ensure you are still doing well. Gastroenterology follow-up in 1-2 weeks office will call with appointment Lab work: Basic metabolic panel, liver function test in 1 week Needs complete, life long ETOH cessation,-to prevent permanent liver damage - which can lead to multiple organ failure /damage to your heart , kidney , and ultimately Please call if you have any questions or problems. You can reach a [facility] hospitalist on duty at [facility] 24 hours a day by calling [phone] Addtl [employer] Provider Instructions: Your platelet counts are low secondary to alcoholic liver disease Puts you in a high risk for bleeding Avoid medications belonging to NSAID group List Of these medications includes but not limited to: Aspirin Diclofenac Ibuprofen, Motrin, Advil Toradol,ketorolac Naproxen, Aleve, Naprosyn You can take Tylenol as needed for pain or fever When buying [id number] pain medications please consult with pharmacy if you are not sure regarding ingredients, as a lot of the pain medications have combination of NSAIDs and Tylenol. Notify your family physician with any recurrence of dark tarry stool, vomiting coffee-ground or blood These are the signs of having bleeding in your stomach to come to the ER as soon as possible for further care Pending Studies at Discharge: No Stand-Alone Forms: My [facility], Smoking Cessation Medications and DC Order Prescriptions: New cyanocobalamin (vitamin B-12) [Vitamin B-12] 100 mcg Tablet 100 mcg PO QAM 30 Days Qty: 30 RF: 0 thiamine HCl (vitamin B1) [Vitamin B-1] 100 mg Tablet 100 mg PO QAM 30 Days Qty: 30 RF: 0 potassium chloride [Klor-Con M20] 20 mEq Tablet,Er Particles/Crystals 20 meq PO BID 30 Days Qty: 60 RF: 0 folic acid 1 mg Tablet 1 mg PO QAM 30 Days Qty: 30 RF: 0 hydroxyzine HCl 25 mg Tablet 25 mg PO Q8 PRN (Reason: Anxiety) Qty: 90 RF: 0 lisinopril [Zestril] 5 mg Tablet 5 mg PO QAM 30 Days Qty: 30 RF: 0 cholecalciferol (vitamin D3) [Vitamin D3] 10 mcg (400 unit) Tablet 400 unit PO QAM 30 Days Qty: 30 RF: 0 calcium citrate [Calcitrate] 200 mg (950 mg) Tablet 950 mg PO PC 30 Days Qty: 143 RF: 0 Continued multivitamin [Multiple Vitamins] Tablet 1 tab PO DAILY RF: 0 Discharge Orders: Discharge Order (Routine); Ordered 07/14/20 Ordered By: Aleah Murguia/Other Patient Handouts: 5 Steps for Eating Healthier, Understanding Alcoholism, Alcoholism: Myths and Facts, The Impact of Alcoholism, Alcoholism Resources, Alcoholism: Getting Help, Recovering from Addiction, A1C Admission Data Admit Date/Time: 07/09/20 23:16 Attending Provider: Aleah Nweton Admit Provider: Jax Rand Primary Care Provider: PCP,NO Other Providers: Jax Rand ; Guido Hanley ; Heidi Urrutia Arthur John ; Sravan Fong ; Gurwinder Hassan ; Reena Mead ; Vargas Wallace ; Gina Reddy ; Naomie Merida ; Jess Soriano ; Frank Werner I. ; Abena Mora Natalie C. ; Maddi Agarwal ; Giancarlo Pace ; Kwan Tejada Other Interventions: Discharge Summary Assessment (RN) Last Done: 07/14/20 15:49 PSY Interdisciplinary Discharge Planning Last Done: 07/12/20 12:44
== END 2020-07-14 17:05 | disposition home or self-care (01) | DRG 433 ==
LOC: ED 21:03 → 2E 23:16 → SUATTDRO 23:16 → 2E 07-10 01:25

== ENCOUNTER 2020-07-27 14:38 | Inpatient (IN) ==
[2020-07-27 15:19] LABS: Basophils # (auto) 0.07 K/uL (0-0.2); Basophils % (auto) 0.3 %; Eosinophils # (auto) 0.04 K/uL (0-0.5); Eosinophils % (auto) 0.2 %; Hematocrit (blood only) 42.7 % (42-52); Hemoglobin 14.8 g/dL (14.0-18.0); Immature Granulocytes # (auto) 0.72 K/uL (0.00-0.02); Immature Granulocytes % (auto) 2.9 %; Lymphocytes # (auto) 2.39 K/uL (1.2-3.4); Lymphocytes % (auto) 9.5 %; Mean Corpuscular Hgb Conc 34.7 g/dL (32-36); Mean Corpuscular Volume 98.2 fL (80-100); Mean Platelet Volume 10.7 fL (7.4-10.4); Monocytes # (auto) 2.41 K/uL (0.11-0.59); Monocytes % (auto) 9.6 %; Neutrophils # (auto) 19.46 K/uL (1.4-6.5); Neutrophils % (auto) 77.5 %; Platelet Count 514 K/uL (130-400); RDW Standard Deviation 68.4 fL (36.4-46.3); Red Blood Count 4.35 M/uL (4.7-6.1); White Blood Count 25.09 K/uL (4.8-10.8)
--- NOTE | 2020-07-27 15:24 | Emergency Department Note ---
Impression & Plan Alcoholic liver disease, Alcoholic hepatitis, Leukocytosis, Hyperbilirubinemia ED Provider Note NAME: JESSICA FLORENTINO AGE: 35 SEX: M : 1985 ARRIVES VIA: Walk-In INFORMANT: Patient ED PROVIDER(S): Yong Reyes DO CHIEF COMPLAINT: Increased white count HPI: Patient is a 35-year-old male who presents to the ER with a past medical history of alcohol withdrawal, alcoholic cirrhosis, transaminitis and hypokalemia that presents the ER referred in by Kentrell REYES. He had blood work performed as an outpatient has an increasing white count. His LFTs are trending down. He denies any headache or change in vision. No chest pain or shortness of breath. No nausea, vomiting, or diarrhea. Denies any dysuria, urgency, or frequency. Admits to feeling increased weakness throughout and feeling rundown. He actually has no abdominal pain. ROS: See above HPI for pertinent positives & negatives. A total of 10 systems reviewed and were otherwise negative. PAST MEDICAL HISTORY:See Below PAST SURGICAL HISTORY:See Below FAMILY HISTORY:See Below SOCIAL HISTORY:See Below HOME MEDICATIONS:See Below ALLERGIES:See Below VITALS:See Below PHYSICAL EXAMINATION: GENERAL: Sitting up in bed, alert, well appearing, well nourished, no distress, non-toxic EYE EXAM: Scleral icterus OROPHARYNX: no exudate, no erythema, lips, buccal mucosa, and tongue normal and mucous membranes are moist NECK: supple, no nuchal rigidity, no adenopathy, non-tender LUNGS: Clear to auscultation. Normal chest wall mechanics HEART: no murmurs, S1 normal and S2 normal ABDOMEN: abdomen soft, non-tender, normo-active bowel sounds, no masses, no rebound or guarding. BACK: Back is symmetrical on inspection and there is no deformity, no midline tenderness, no CVA tenderness. SKIN: Diffuse jaundice UPPER EXTREMITIES: upper extremities are grossly normal. LOWER EXTREMITIES: No pitting edema. NEURO EXAM: Normal sensorium, cranial nerves II-XII grossly intact, normal speech, no gross weakness of arms, no gross weakness of legs. MEDICAL DECISION MAKING: Patient is a 35-year-old male referred in by Ms. Kentrell REYES from [facility] for increasing white count. He was just placed on steroids. Labs show a leukocytosis of 25,000. No significant anemia. INR 1.2. BMP with mild hyponatremia at 132. Transaminitis present as well as a significantly elevated bilirubin of 13 which is new. Lipase normal. UA with nitrates although expected with the elevated bilirubin. Will not treat. Covid negative. Patient has a completely benign abdomen. Discussed with the hospitalist per GIs request for further evaluation. Blood cultures were obtained. Otherwise well-appearing fever leukocytosis is likely secondary to steroids but cannot be certain at this time. Nothing to suggest peritonitis. Triage Nursing notes reviewed. Limited review of prior medical records performed Vital Signs: reviewed and remarkable for no significant abnormalities Differential diagnosis: Differential diagnoses includes but is not limited to gastritis, peptic ulcer disease, GERD, gallbladder disease, pancreatitis, small bowel obstruction, acute coronary syndrome, pericarditis, ischemic bowel, irritable bowel disease, i rritable bowel syndrome, appendicitis, diverticulitis, malignancy, hernia, urinary tract infection, torsion, perforation, trauma, infectious. ER treatment provided: See below Diagnostics interpreted by me: ECG: Sinus rhythm rate 83 Normal axis No PVCs QTC 470 Cardiac Monitoring: An order was placed for continuous cardiac monitoring. The monitor shows a rate of 92 with sinus rhythm. Laboratory studies: As stated above and show below. Imaging studies: See below Consultation(s): Discussed with Ms. Kentrell REYES from [facility] [place] recommends admission Discussed with hospitalist for further evaluation Procedures: none Critical Care: None Past Med/Surg History Medical History Alcohol use disorder Alcoholism HLD (hyperlipidemia) HTN (hypertension) Tobacco use Surgical History H/O gastric bypass Family History Other Heart disease Social History Smoking Status: Current some day smoker Tobacco Type: Cigarettes Second Hand Exposure: No; Hx Alcohol Use: Yes Alcohol type: hard liquor Hx Substance Use: No Preferred Language: Lithuanian Communication Ability: Effective Finish Sander Required: No Beliefs That Will Affect Care: None Current Living Situation: Spouse Feels Safe at Home: Yes Assistive Devices: None Allergies Allergies Allergy/AdvReac Type Severity Reaction Status Date / Time Penicillins Allergy Verified 07/27/20 15:39 Sulfa (Sulfonamide Allergy Verified 07/27/20 15:39 Antibiotics) sulfamethoxazole Allergy Verified 07/27/20 15:39 Home Meds Home Medications Medication Instructions Recorded Confirmed multivitamin [Multiple Vitamins] 1 tab PO DAILY 07/09/20 07/27/20 calcium citrate [Calcitrate] 950 mg PO DAILY 07/27/20 07/27/20 prednisolone sodium phosphate 40 mg PO DAILY 07/27/20 07/27/20 Previous Rx's Medication Instructions Recorded cholecalciferol (vitamin D3) 400 unit PO QAM 30 Days #30 tab 07/14/20 [Vitamin D3] cyanocobalamin (vitamin B-12) 100 mcg PO QAM 30 Days #30 tab 07/14/20 [Vitamin B-12] folic acid 1 mg PO QAM 30 Days #30 tab 07/14/20 hydroxyzine HCl 25 mg PO Q8 PRN #90 tab 07/14/20 lisinopril [Zestril] 5 mg PO QAM 30 Days #30 tab 07/14/20 potassium chloride [Klor-Con M20] 20 meq PO BID 30 Days #60 tab 07/14/20 thiamine HCl (vitamin B1) [Vitamin 100 mg PO QAM 30 Days #30 tab 07/14/20 B-1] Results & Data (ED) Vital Signs Vital Signs - 24 hr 07/27/20 14:40 07/27/20 16:45 Temperature 36.7 C Temperature Source Temporal Artery Scan Pulse Rate 96 H Pulse Rate [Apical] 88 Respiratory Rate 20 18 Blood Pressure 132/89 Blood Pressure [Left Arm] 140/85 Blood Pressure Mean 103 Blood Pressure Mean [Left Arm] 103 Pulse Oximetry 96 100 Oxygen Delivery Method Room Air Room Air Sepsis Recent Fever Within 48 Hours No Sepsis New/Unexplained Change in Mental Status N/A Sepsis Action Taken by Nursing No Action Required Laboratory Data Result diagrams: 07/27/20 15:10 07/27/20 15:10 Lab Results 07/27/20 07/27/20 07/27/20 Range/Units 15:10 15:10 15:12 WBC 25.09 H (4.8-10.8) K/uL RBC 4.35 L (4.7-6.1) M/uL Hgb 14.8 (14.0-18.0) g/dL Hct 42.7 (42-52) % MCV 98.2 (80-100) fL MCH 34.0 (25-34) pg MCHC 34.7 (32-36) g/dL RDW Std Deviation 68.4 H (36.4-46.3) fL RDW Coeff of Kunal 19.0 H (11.5-14.5) % Plt Count 514 H (130-400) K/uL MPV 10.7 H (7.4-10.4) fL Immature Gran % (Auto) 2.9 % Neut % (Auto) 77.5 % Lymph % (Auto) 9.5 % [place] % (Auto) 9.6 % Eos % (Auto) 0.2 % Baso % (Auto) 0.3 % Neut # (Auto) 19.46 H (1.4-6.5) K/uL Lymph # (Auto) 2.39 (1.2-3.4) K/uL [place] # (Auto) 2.41 H (0.11-0.59) K/uL Eos # (Auto) 0.04 (0-0.5) K/uL Baso # (Auto) 0.07 (0-0.2) K/uL Immature Gran # (Auto) 0.72 H (0.00-0.02) K/uL PT (9.0-12.0) Seconds INR (0.9-1.1) Sodium 132 L (136-145) mmol/L Potassium 4.4 (3.5-5.1) mmol/L Chloride 102 (98-107) mmol/L Carbon Dioxide 26 (21-32) mmol/L Anion Gap 4.0 (3-11) BUN 10 (7-18) mg/dl Creatinine 0.74 (0.6-1.4) mg/dl Est Cr Clr Drug Dosing 183.7 ml/min Est GFR ( Amer) 137.5 Est GFR (Non-Af Amer) 118.7 BUN/Creatinine Ratio 12.8 (10-20) Glucose 101 H (70-99) mg/dl Calcium 9.3 (8.5-10.1) mg/dl Total Bilirubin 13.2 H (0.2-1) mg/dl AST 195 H (15-37) U/L ALT 107 H (12-78) U/L Alkaline Phosphatase 300 H (45-117) U/L Total Protein 6.6 (6.4-8.2) gm/dl Albumin 2.1 L (3.4-5.0) gm/dl Globulin 4.5 H (2.5-4.0) gm/dl Albumin/Globulin Ratio 0.5 L (0.9-2) Lipase 184 (73-393) U/L Urine Color Dark Yellow Urine Appearance Clear (Clear) Urine pH 6.0 (4.5-7.5) Ur Specific [place] 1.019 (1.000-1.030) Urine Protein Negative (Negative) Urine Glucose (UA) Negative (Negative) Urine Ketones Trace H (Negative) Urine Blood Negative (Negative) Urine Nitrite Positive A (Negative) Urine Bilirubin 3+ H (Negative) Urine Urobilinogen Negative (Negative) Ur Leukocyte Esterase Negative (Negative) Urine WBC (Auto) 0 (0-5) /hpf Urine RBC (Auto) 5-10 H (0-4) /hpf U Hyaline Cast (Auto) 0 (0-5) /lpf U Epithel Cells (Auto) 0-5 (0-5) /lpf Urine Bacteria (Auto) Negative (Negative) COVID-19 Eval Order SARS-CoV-2 (PCR) (Negative) Influenza Type A (PCR) (Neg) Influenza Type B (PCR) (Neg) RSV (RT-PCR) (Neg) 07/27/20 07/27/20 07/27/20 Range/Units 15:23 15:35 15:35 WBC (4.8-10.8) K/uL RBC (4.7-6.1) M/uL Hgb (14.0-18.0) g/dL Hct (42-52) % MCV (80-100) fL MCH (25-34) pg MCHC (32-36) g/dL RDW Std Deviation (36.4-46.3) fL RDW Coeff of Kunal (11.5-14.5) % Plt Count (130-400) K/uL MPV (7.4-10.4) fL Immature Gran % (Auto) % Neut % (Auto) % Lymph % (Auto) % [place] % (Auto) % Eos % (Auto) % Baso % (Auto) % Neut # (Auto) (1.4-6.5) K/uL Lymph # (Auto) (1.2-3.4) K/uL [place] # (Auto) (0.11-0.59) K/uL Eos # (Auto) (0-0.5) K/uL Baso # (Auto) (0-0.2) K/uL Immature Gran # (Auto) (0.00-0.02) K/uL PT 12.1 H (9.0-12.0) Seconds INR 1.2 H (0.9-1.1) Sodium (136-145) mmol/L Potassium (3.5-5.1) mmol/L Chloride (98-107) mmol/L Carbon Dioxide (21-32) mmol/L Anion Gap (3-11) BUN (7-18) mg/dl Creatinine (0.6-1.4) mg/dl Est Cr Clr Drug Dosing ml/min Est GFR ( Amer) Est GFR (Non-Af Amer) BUN/Creatinine Ratio (10-20) Glucose (70-99) mg/dl Calcium (8.5-10.1) mg/dl Total Bilirubin (0.2-1) mg/dl AST (15-37) U/L ALT (12-78) U/L Alkaline Phosphatase (45-117) U/L Total Protein (6.4-8.2) gm/dl Albumin (3.4-5.0) gm/dl Globulin (2.5-4.0) gm/dl Albumin/Globulin Ratio (0.9-2) Lipase (73-393) U/L Urine Color Urine Appearance (Clear) Urine pH (4.5-7.5) Ur Specific [place] (1.000-1.030) Urine Protein (Negative) Urine Glucose (UA) (Negative) Urine Ketones (Negative) Urine Blood (Negative) Urine Nitrite (Negative) Urine Bilirubin (Negative) Urine Urobilinogen (Negative) Ur Leukocyte Esterase (Negative) Urine WBC (Auto) (0-5) /hpf Urine RBC (Auto) (0-4) /hpf U Hyaline Cast (Auto) (0-5) /lpf U Epithel Cells (Auto) (0-5) /lpf Urine Bacteria (Auto) (Negative) COVID-19 Eval Order CovFluRsv at [facility] SARS-CoV-2 (PCR) NEGATIVE (Negative) Influenza Type A (PCR) Negative (Neg) Influenza Type B (PCR) Negative (Neg) RSV (RT-PCR) Negative (Neg) Administered Medications Discontinued Medications Ceftriaxone Sodium (Rocephin) 2,000 mg in 70 mls @ 140 mls/hr IV ONE STA Stop: 07/27/20 18:08 Last Admin: 07/27/20 18:07 Dose: 140 mls/hr Documented by: [id number] Discharge Plan Visit Data Chief Complaint: Abnormal Labs/Diagnostic Testing Stated Complaint: ABNORMAL LABS SENT BY [facility]STRO ED Provider: Yong Reyes Discharge Problem: Alcoholic liver disease, Alcoholic hepatitis, Leukocytosis, Hyperbilirubinemia Patient Disposition: Admitted As Inpatient Discharge Instructions Interventions: ED Discharge Assessment Last Done: 07/27/20 18:28 Discharge Problem: Alcoholic hepatitis Qualifiers: Ascites presence: unspecified Qualified Code(s): K70.10 - Alcoholic hepatitis without ascites Leukocytosis Qualifiers: Leukocytosis type: unspecified Qualified Code(s): D72.829 - Elevated white blood cell count, unspecified
[2020-07-27 15:27] LABS: Appearance Urine Clear (Clear); Bacteria Urine Automated Negative (Negative); Blood Urine Negative (Negative); Cast Urine Automated 0 /lpf (0-5); Color Urine Dark Yellow; Epithelial Cell Urine Auto 0-5 /lpf (0-5); Glucose Urine UA Negative (Negative); Ketones Urine Trace (Negative); Leukocyte Esterase Urine Negative (Negative); Nitrite Urine Positive (Negative); Protein Urine Negative (Negative); Specific Gravity Urine 1.019 (1.000-1.030); Urobilinogen Urine Negative (Negative); WBC Urine Automated 0 /hpf (0-5)
[2020-07-27 15:31] LABS: Bilirubin Urine 3+ (Negative)
[2020-07-27 15:44] LABS: INR 1.2 (0.9-1.1); Prothrombin Time 12.1 Seconds (9.0-12.0)
[2020-07-27 15:55] LABS: Albumin Level 2.1 gm/dl (3.4-5.0); BUN Creatinine Ratio 12.8 (10-20); Calcium 9.3 mg/dl (8.5-10.1); Creatinine Clr Calc Pharmacy 183.7 ml/min; Est GFR (African American) 137.5; Est GFR (Non-African American) 118.7; Potassium 4.4 mmol/L (3.5-5.1)
[2020-07-27 15:57] LABS: Albumin Globulin Ratio 0.5 (0.9-2); Bilirubin,Total 13.2 mg/dl (0.2-1); Globulin 4.5 gm/dl (2.5-4.0); Total Protein 6.6 gm/dl (6.4-8.2)
[2020-07-27 17:31] LABS: Influenza A virus by PCR Negative (Neg); Influenza B virus by PCR Negative (Neg); RSV by PCR Negative (Neg); SARS CoV2 RNA(COVID-19) InHosp NEGATIVE (Negative)
--- NOTE | 2020-07-27 17:31 | History & Physical Report ---
Date of Service July 27, 2020 Assessment & Plan (1) Alcoholic hepatitis: This is a 35yo M with a PMH of HTN, HLD, depression, history of gastric bypass (2005), ongoing tobacco use, history of heavy alcohol use recently admitted with alcoholic hepatitis who was directed to [facility] by GI provider for infectious workup due to leukocytosis. Following with GI for alcoholic hepatitis, started on prednisolone 40mg PO daily on 07/24/19 Concern in GI clinic for underlying infection vs. steroid-induced leukocytosis, sent for eval WBC 25, plt 514, PT 12, INR 1.2, Tbili 13.2, AST 195, ALT 107, alk phos 300 (downtrending) Afebrile, mid RUQ pain, no ascites on abdominal ultrasound so did not pursue diagnostic paracentesis at this time Continue steroids, routine GI consult, repeat CMP and PT/INR tomorrow Denies etoh or Tylenol use since early June. Utox pending (2) Leukocytosis: Afebrile, UA with nitrites, no leuk esterase or urine bacteria. Empiric Rocephin initiated Abdominal ultrasound without presence of ascites CXR pending Likely steroid induced but will continue infectious workup - urine cx and blood cx pending (3) Thrombocytosis: Plt count 514, likely steroid-induced Monitor with daily CBC (4) HTN (hypertension): Continue lisinopril (5) HLD (hyperlipidemia): Diet controlled DVT Ppx: SQ Lovenox Code status: FULL PCP: Jim Dispo: Admitted to med/surg. Plan to return home once medically stable. Patient seen in collaboration with Dr. Tejada. Please see addendum. History of Present Illness Chief Complaint: leukocytosis, sent by provider Primary Care Provider: DAYSI Torres This is a 35yo M with a PMH of HTN, HLD, depression, history of gastric bypass (2005), ongoing tobacco use, history of heavy alcohol use recently admitted with alcoholic hepatitis who was directed to [facility] by GI provider for infectious workup due to leukocytosis. Was recently admitted from 07/09-07/14 with alcoholic hepatitis/hyperbilirubinemia and hypertensive urgency in the setting of alcohol withdrawal. GI consulted during admission for alcoholic hepatitis and was seen in follow-up last week. Lab work from 07/23 showed mild leukocytosis of 12.5 along with tbili of 20. Has mild discomfort in right upper quadrant that has been present since last Sunday, which is why steroids were initiated on Sunday. Since then, patient has been feeling progressively better. Had repeat lab work on 07/26 that showed leukocytosis of 21.75 along with downtrending tbili. Was directed to come to ED for infectious workup by DAYSI Pfeiffer who is concerned about possible SBP or underlying infection vs steroid-induced leukocytosis. Denies any fever or chills. No nausea or vomiting. Has been having 2-3 episodes of loose stools since discharge home from the hospital. No headache, lightheadedness, chest pain, shortness of breath, wheezing, dysuria, melena or hematochezia. Denies any alcohol or Tylenol use since discharge from the hospital on 07/14. Allergies Allergy/AdvReac Type Severity Reaction Status Date / Time Penicillins Allergy Verified 07/27/20 15:39 Sulfa (Sulfonamide Allergy Verified 07/27/20 15:39 Antibiotics) sulfamethoxazole Allergy Verified 07/27/20 15:39 Home Medications Medication Instructions Recorded Confirmed Type multivitamin [Multiple Vitamins] 1 tab PO DAILY 07/09/20 07/27/20 History cholecalciferol (vitamin D3) 400 unit PO QAM 30 Days #30 tab 07/14/20 07/27/20 Rx [Vitamin D3] cyanocobalamin (vitamin B-12) 100 mcg PO QAM 30 Days #30 tab 07/14/20 07/27/20 Rx [Vitamin B-12] folic acid 1 mg PO QAM 30 Days #30 tab 07/14/20 07/27/20 Rx hydroxyzine HCl 25 mg PO Q8 PRN #90 tab 07/14/20 07/27/20 Rx lisinopril [Zestril] 5 mg PO QAM 30 Days #30 tab 07/14/20 07/27/20 Rx potassium chloride [Klor-Con M20] 20 meq PO BID 30 Days #60 tab 07/14/20 07/27/20 Rx thiamine HCl (vitamin B1) [Vitamin 100 mg PO QAM 30 Days #30 tab 07/14/20 07/27/20 Rx B-1] calcium citrate [Calcitrate] 950 mg PO DAILY 07/27/20 07/27/20 History prednisolone sodium phosphate 40 mg PO DAILY 07/27/20 07/27/20 History Past Med/Surg History Medical History Alcohol use disorder Alcoholism HLD (hyperlipidemia) HTN (hypertension) Tobacco use Surgical History H/O gastric bypass Family History Other Heart disease Social History Smoking Status: Current some day smoker Tobacco Type: Cigarettes Second Hand Exposure: No; Hx Alcohol Use: Yes Alcohol type: hard liquor Hx Substance Use: No Preferred Language: Kyrgyz Communication Ability: Effective Swimming Pool Cleaner Required: No Beliefs That Will Affect Care: None Current Living Situation: Spouse Feels Safe at Home: Yes Assistive Devices: None Review of Systems Review of Systems: At least ten systems reviewed and negative except as noted in the HPI. Physical Exam Physical Exam: General Appearance: WD/WN, vitals as above, NAD, sitting up in bed, obese, pleasant, conversing easily Head: normocephalic, atraumatic Eyes: normal inspection, PERRL, conjunctivae normal, anicteric sclerae ENT: external ear and nose normal, oropharynx normal Neck: normal visual inspection, trachea midline, no thyromegaly Respiratory: normal respiratory effort, lungs clear to auscultation, no wheeze, rales, rhonchi. No accessory muscle use Cardiovascular: regular rate, rhythm, no murmur, normal peripheral pulses, no BLE edema. Vessels: no JVD Chest: normal inspection of chest Abdomen/GI: normal bowel sounds, soft, mild RUQ TTP, no hepatosplenomegaly Extremities/Musculoskeletal: no cyanosis or clubbing, extremities motor strength 5/5 Neurologic: PERRL, EOMI, accommodation nl, no face palsy, no dysarthria, CN's II-XI intact bilaterally and moves all extremities Psychiatric: A+Ox3, euthymic affect Skin: no rashes, warm/dry, + jaundice Results & Data Results & Data ([facility]) Vital Signs (Past 12 Hours) Vital Signs Temp Pulse Pulse Resp BP BP Pulse Ox 07/27/20 16:45 88 18 140/85 100 07/27/20 14:40 36.7 C 96 H 20 132/89 96 Laboratory Results Short CBC 07/27/20 07/27/20 07/27/20 Range/Units 15:10 15:10 15:12 WBC 25.09 H (4.8-10.8) K/uL Hgb 14.8 (14.0-18.0) g/dL Hct 42.7 (42-52) % Plt Count 514 H (130-400) K/uL Total Bilirubin 13.2 H (0.2-1) mg/dl Urine Bilirubin 3+ H (Negative) BMP 07/27/20 15:10 Sodium 132 L Potassium 4.4 Chloride 102 Carbon Dioxide 26 BUN 10 Creatinine 0.74 Glucose 101 H Calcium 9.3 Liver Function 07/27/20 Range/Units 15:10 Total Bilirubin 13.2 H (0.2-1) mg/dl AST 195 H (15-37) U/L ALT 107 H (12-78) U/L Alkaline Phosphatase 300 H (45-117) U/L Albumin 2.1 L (3.4-5.0) gm/dl Urine 07/27/20 Range/Units 15:12 Urine Color Dark Yellow Urine Appearance Clear (Clear) Urine pH 6.0 (4.5-7.5) Ur Specific [place] 1.019 (1.000-1.030) Urine Protein Negative (Negative) Urine Glucose (UA) Negative (Negative) Diagnostic Findings Abdominal ultrasound: pending Supervising Physician Co-Signing Physician Notes Patient is a 35-year-old male with history of hypertension, hyperlipidemia, alcohol use disorder, tobacco use and other medical problems was recently discharged from [facility] after being treated for alcoholic hepatitis was sent to ED by GI provider for work-up for abnormal labs. Patient was started on steroids for alcoholic hepatitis as outpatient and was noted to have significant leukocytosis. Patient admits to having mild right upper quadrant abdominal discomfort but denies any history of fever, chills, nausea, vomiting, diarrhea. He denies any recent alcohol use since last admission. He also denies to use acetaminophen. Please review HPI for complete details of presentation. On exam patient is obese, no apparent distress, normocephalic atraumatic, lungs are aryan ar to auscultation, S1-S2, no murmur, abdomen soft, mild right upper quadrant tender, normal bowel sounds, no ascites, no pedal edema,+ jaundice, alert, awake, oriented, grossly no focal neurological deficits. Patient is admitted for management of alcoholic hepatitis, further work-up for leukocytosis. Agree with checking abdominal ultrasound to rule out ascites. Continue steroids. Check toxicology screen. Will consult GI. Trend LFTs. Avoid acetaminophen. Will obtain blood, urine cultures. Check chest x-ray. Empirically started on Rocephin. Monitor platelet count. Chronic hyponatremia likely secondary to liver disease. Monitor sodium levels. I personally reviewed the record. Patient is interviewed and examined at bedside. Patient's care is coordinated with Malathi Linton PA-C. Please refer to the documentation above for details of patient's presentation and for discussion of other issues.
[2020-07-27] MEDS ORDERED: cefTRIAXone SODIUM 2,000 MG/70 ML BAG IV STA (17:39)
--- NOTE | 2020-07-27 18:35 | Ultrasound Report ---
US abdomen ltd ascites CLINICAL HISTORY: eval for ascites. Abdominal distention. COMPARISON STUDY: Abdominal MRI 07/12/2020. FINDINGS: Transabdominal scanning of the abdomen and pelvis was performed with telemarketing representative images submitted. No ascites identified. Hepatic steatosis. IMPRESSION: No ascites. ACT 112: Negative or not required by law. Electronically signed by: Amish Noe M.D. 07/27/2020 6:33 PM
[2020-07-27] MEDS ORDERED: POLYETHYLENE (MIRALAX) 17 GM PACK PO PRN (19:27)
[2020-07-27] MEDS ORDERED: ONDANSETRON INJ 2 MG/ML 2 ML VIAL IV PRN (19:27)
[2020-07-27] MEDS ORDERED: hydrOXYzine HCl 25 MG TAB PO PRN (19:48)
[2020-07-27] MEDS ORDERED: ENOXAPARIN INJ 40 MG/0.4 ML SYR SQ SCH (20:00)
--- NOTE | 2020-07-27 20:05 | XRay Report ---
XR chest 1V portable HISTORY: Admission chest x-ray. COMPARISON: 07/09/2020. FINDINGS: Mild elevation of the right hemidiaphragm, unchanged. The heart is normal in size. No pleur al effusions. No pneumothorax. The lungs are clear. IMPRESSION: No significant change compared to the prior study. No acute process. ACT 112: Negative or not required by law. Electronically signed by: Amish Noe M.D. 07/27/2020 8:03 PM
[2020-07-27] MEDS: POTASSIUM CHLORIDE CRTAB 20 MEQ TABCR PO SCH (20:40)
[2020-07-27 20:51] LABS: Amphetamines+Metham, Urine Neg (Neg); Barbiturates, Urine Neg (Neg); Benzodiazepine, Urine Neg (Neg); Cocaine, Urine Neg (Neg); MDMA (Ecstacy), Urine Neg (Neg); Methadone, Urine Neg (Neg); Opiate, Urine Neg (Neg); Phencyclidine, Urine Neg (Neg)
[2020-07-28 06:01] LABS: Hemoglobin 14.3 g/dL (14.0-18.0); Mean Corpuscular Hemoglobin 33.6 pg (25-34); Mean Corpuscular Volume 98.6 fL (80-100); Mean Platelet Volume 10.4 fL (7.4-10.4); Platelet Count 421 K/uL (130-400); RDW Standard Deviation 68.3 fL (36.4-46.3); Red Blood Count 4.26 M/uL (4.7-6.1)
[2020-07-28 06:17] LABS: INR 1.2 (0.9-1.1); Prothrombin Time 12.3 Seconds (9.0-12.0)
[2020-07-28 06:48] LABS: Albumin Globulin Ratio 0.5 (0.9-2); BUN Creatinine Ratio 13.7 (10-20); Bilirubin,Total 12.2 mg/dl (0.2-1); Calcium 8.8 mg/dl (8.5-10.1); Creatinine Clr Calc Pharmacy 187.6 ml/min; Est GFR (African American) 139.1; Globulin 4.4 gm/dl (2.5-4.0); Magnesium 2.1 mg/dl (1.8-2.4); Potassium 3.9 mmol/L (3.5-5.1); Total Protein 6.4 gm/dl (6.4-8.2)
[2020-07-28] MEDS: POTASSIUM CHLORIDE CRTAB 20 MEQ TABCR PO SCH (07:37)
[2020-07-28] MEDS ORDERED: MULTIVITAMIN TAB PO SCH (09:00)
[2020-07-28] MEDS ORDERED: CHOLECALCIFEROL 400 UNITS 10 MCG TAB PO SCH (09:00)
[2020-07-28] MEDS ORDERED: lisinopril 5 MG TAB PO SCH (09:00)
[2020-07-28] MEDS ORDERED: FOLIC ACID 1 MG TAB PO SCH (09:00)
[2020-07-28] MEDS ORDERED: CYANOCOBALAMIN (VITAMIN B-12) 100 MCG TABLET PO SCH (09:00)
[2020-07-28] MEDS ORDERED: CALCIUM CITRATE 950 MG TAB PO SCH (09:00)
[2020-07-28] MEDS ORDERED: prednisoLONE SYRUP 15 MG/5 ML BTL PO SCH (09:00)
[2020-07-28] MEDS ORDERED: THIAMINE HCL 100 MG TAB PO SCH (09:00)
--- NOTE | 2020-07-28 10:03 | Gastrointestinal Consultation ---
Date of Consultation July 28, 2020 Assessment & Plan (1) Alcoholic hepatitis: 35 year old male admitted for infectious workup giving rising WBC before prednisone use for ETOH hep, ABS Us not enough fluid to tap, chest xr neg and urine and blood culture negative today he is awake, alert and oriented clinically feeling well await infectious work up if negative, continue w/ OP prescription of prednisolone and consider DC home WBCcould be elevated secondary to steroid use and ETOH hep labs weekly as OP remain drug and ETOH free recall as needed Supervising Physician Co-Signing Physician Notes Late entry: Patient was seen and examine don 07/28 with DAYSI Rosa whose note reflects our findings and plan. History of Present Illness Reason for Consultation: alc hep, elevated WBC Requesting Physician: Neo Attending Physician: Jennifer Larson MD History of Present Illness 35 year old male hx of RYGB, HTN, depression, alcohol abuse who previously underwent rehab with a period of sobriety but relapsed 2 months ago and his most recent drink was on 07/10/20 admitted a few weeks ago with ETOH hepatitis, started on OP prednisolone admitted for infectious work up giving rising WBC before initiation of steroids. Pt was seen and evaluated chart reviewed. Feeling well. No abd pain. No nausea, vomiting. No diarrhea. No black or bloody stools. No abd ascites. Has had some dark urine which he notes is intermittent and worse when he is not well hydrated. No blood in urine or urinary symptoms. Chest xr without changes urine cx neg to date blood cx neg to date abd us not enough to tap DF 13 MRI ABD: . Hepatomegaly demonstrating diffuse steatosis. No lesions identified. Minimal periportal edema.No gallstones. Allergies Allergy/AdvReac Type Severity Reaction Status Date / Time Penicillins Allergy Verified 07/27/20 15:39 Sulfa (Sulfonamide Allergy Verified 07/27/20 15:39 Antibiotics) sulfamethoxazole Allergy Verified 07/27/20 15:39 Home Medications Medication Instructions Recorded Confirmed Type multivitamin [Multiple Vitamins] 1 tab PO DAILY 07/09/20 07/27/20 History cholecalciferol (vitamin D3) 400 unit PO QAM 30 Days #30 tab 07/14/20 07/27/20 Rx [Vitamin D3] cyanocobalamin (vitamin B-12) 100 mcg PO QAM 30 Days #30 tab 07/14/20 07/27/20 Rx [Vitamin B-12] folic acid 1 mg PO QAM 30 Days #30 tab 07/14/20 07/27/20 Rx hydroxyzine HCl 25 mg PO Q8 PRN #90 tab 07/14/20 07/27/20 Rx lisinopril [Zestril] 5 mg PO QAM 30 Days #30 tab 07/14/20 07/27/20 Rx potassium chloride [Klor-Con M20] 20 meq PO BID 30 Days #60 tab 07/14/20 07/27/20 Rx thiamine HCl (vitamin B1) [Vitamin 100 mg PO QAM 30 Days #30 tab 07/14/20 07/27/20 Rx B-1] calcium citrate [Calcitrate] 950 mg PO DAILY 07/27/20 07/27/20 History prednisolone sodium phosphate 40 mg PO DAILY 07/27/20 07/27/20 History Patient History Medical History Alcohol use disorder Alcoholism HLD (hyperlipidemia) HTN (hypertension) Tobacco use Surgical History H/O gastric bypass Family History Other Heart disease Social History Smoking Status: Current some day smoker Tobacco Type: Cigarettes Second Hand Exposure: No; Hx Alcohol Use: Yes Alcohol type: hard liquor Hx Substance Use: No Preferred Language: Hong Konger Communication Ability: Effective Natural Sciences Department Chair Required: No Beliefs That Will Affect Care: None Current Living Situation: Family Other Information That Helps Us Care for You: No Feels Safe at Home: Yes Safety Concerns: Feels Safe At This Time Assistive Devices: None Review of Systems Constitutional: no fever, no chills and no fatigue Respiratory: no cough and no dyspnea Cardiovascular: no chest pain and no dyspnea Gastrointestinal: no abdominal pain, no hematemesis, no dysphagia, no blood in stools and no melena Physical Exam Constitutional: WD/WN, vitals as above well nourished; no acute distress and not ill appearing Neck: trachea midline Respiratory: normal respiratory effort, lungs clear to auscultation normal respiratory effort; no respiratory distress and no labored breathing Gastrointestinal (Abdomen): normal bowel sounds, soft, nontender, no hepatosplenomegaly Results & Data ([facility]) Vital Signs (Past 12 Hours) Vital Signs Temp Pulse Resp BP Pulse Ox 07/28/20 07:38 36.5 C 69 16 116/75 97 07/27/20 23:57 36.7 C 86 18 121/73 99 Laboratory Results 07/28/20 07/28/20 07/28/20 Range/Units 05:45 05:45 05:45 WBC 23.00 H (4.8-10.8) K/uL RBC 4.26 L (4.7-6.1) M/uL Hgb 14.3 (14.0-18.0) g/dL Hct 42.0 (42-52) % MCV 98.6 (80-100) fL MCH 33.6 (25-34) pg MCHC 34.0 (32-36) g/dL RDW Std Deviation 68.3 H (36.4-46.3) fL RDW Coeff of Kunal 19.0 H (11.5-14.5) % Plt Count 421 H (130-400) K/uL MPV 10.4 (7.4-10.4) fL Immature Gran % (Auto) % Neut % (Auto) % Lymph % (Auto) % [place] % (Auto) % Eos % (Auto) % Baso % (Auto) % Neut # (Auto) (1.4-6.5) K/uL Lymph # (Auto) (1.2-3.4) K/uL [place] # (Auto) (0.11-0.59) K/uL Eos # (Auto) (0-0.5) K/uL Baso # (Auto) (0-0.2) K/uL Immature Gran # (Auto) (0.00-0.02) K/uL PT 12.3 H (9.0-12.0) Seconds INR 1.2 H (0.9-1.1) Sodium 135 L (136-145) mmol/L Potassium 3.9 (3.5-5.1) mmol/L Chloride 102 (98-107) mmol/L Carbon Dioxide 30 (21-32) mmol/L Anion Gap 3.0 (3-11) BUN 10 (7-18) mg/dl Creatinine 0.72 (0.6-1.4) mg/dl Est Cr Clr Drug Dosing 187.6 ml/min Est GFR ( Amer) 139.1 Est GFR (Non-Af Amer) 120.0 BUN/Creatinine Ratio 13.7 (10-20) Glucose 83 (70-99) mg/dl Calcium 8.8 (8.5-10.1) mg/dl Magnesium 2.1 (1.8-2.4) mg/dl Total Bilirubin 12.2 H (0.2-1) mg/dl AST 187 H (15-37) U/L ALT 107 H (12-78) U/L Alkaline Phosphatase 280 H (45-117) U/L Total Protein 6.4 (6.4-8.2) gm/dl Albumin 2.0 L (3.4-5.0) gm/dl Globulin 4.4 H (2.5-4.0) gm/dl Albumin/Globulin Ratio 0.5 L (0.9-2) Lipase (73-393) U/L Urine Color Urine Appearance (Clear) Urine pH (4.5-7.5) Ur Specific [place] (1.000-1.030) Urine Protein (Negative) Urine Glucose (UA) (Negative) Urine Ketones (Negative) Urine Blood (Negative) Urine Nitrite (Negative) Urine Bilirubin (Negative) Urine Urobilinogen (Negative) Ur Leukocyte Esterase (Negative) Urine WBC (Auto) (0-5) /hpf Urine RBC (Auto) (0-4) /hpf U Hyaline Cast (Auto) (0-5) /lpf U Epithel Cells (Auto) (0-5) /lpf Urine Bacteria (Auto) (Negative) Urine Opiates Screen (Neg) Ur Methadone, Qual (Neg) Urine Barbiturates (Neg) Ur Phencyclidine (PCP) (Neg) U Amphetamin/Meth Scrn (Neg) MDMA (Ecstasy) Screen (Neg) U Benzodiazepines Scrn (Neg) Ur Cocaine Metabolite (Neg) U Marijuana (THC) Screen (Neg) COVID-19 Eval Order SARS-CoV-2 (PCR) (Negative) Influenza Type A (PCR) (Neg) Influenza Type B (PCR) (Neg) RSV (RT-PCR) (Neg) 07/27/20 07/27/20 07/27/20 Range/Units 20:05 15:35 15:35 WBC (4.8-10.8) K/uL RBC (4.7-6.1) M/uL Hgb (14.0-18.0) g/dL Hct (42-52) % MCV (80-100) fL MCH (25-34) pg MCHC (32-36) g/dL RDW Std Deviation (36.4-46.3) fL RDW Coeff of Kunal (11.5-14.5) % Plt Count (130-400) K/uL MPV (7.4-10.4) fL Immature Gran % (Auto) % Neut % (Auto) % Lymph % (Auto) % [place] % (Auto) % Eos % (Auto) % Baso % (Auto) % Neut # (Auto) (1.4-6.5) K/uL Lymph # (Auto) (1.2-3.4) K/uL [place] # (Auto) (0.11-0.59) K/uL Eos # (Auto) (0-0.5) K/uL Baso # (Auto) (0-0.2) K/uL Immature Gran # (Auto) (0.00-0.02) K/uL PT (9.0-12.0) Seconds INR (0.9-1.1) Sodium (136-145) mmol/L Potassium (3.5-5.1) mmol/L Chloride (98-107) mmol/L Carbon Dioxide (21-32) mmol/L Anion Gap (3-11) BUN (7-18) mg/dl Creatinine (0.6-1.4) mg/dl Est Cr Clr Drug Dosing ml/min Est GFR ( Amer) Est GFR (Non-Af Amer) BUN/Creatinine Ratio (10-20) Glucose (70-99) mg/dl Calcium (8.5-10.1) mg/dl Magnesium (1.8-2.4) mg/dl Total Bilirubin (0.2-1) mg/dl AST (15-37) U/L ALT (12-78) U/L Alkaline Phosphatase (45-117) U/L Total Protein (6.4-8.2) gm/dl Albumin (3.4-5.0) gm/dl Globulin (2.5-4.0) gm/dl Albumin/Globulin Ratio (0.9-2) Lipase (73-393) U/L Urine Color Urine Appearance (Clear) Urine pH (4.5-7.5) Ur Specific [place] (1.000-1.030) Urine Protein (Negative) Urine Glucose (UA) (Negative) Urine Ketones (Negative) Urine Blood (Negative) Urine Nitrite (Negative) Urine Bilirubin (Negative) Urine Urobilinogen (Negative) Ur Leukocyte Esterase (Negative) Urine WBC (Auto) (0-5) /hpf Urine RBC (Auto) (0-4) /hpf U Hyaline Cast (Auto) (0-5) /lpf U Epithel Cells (Auto) (0-5) /lpf Urine Bacteria (Auto) (Negative) Urine Opiates Screen Neg (Neg) Ur Methadone, Qual Neg (Neg) Urine Barbiturates Neg (Neg) Ur Phencyclidine (PCP) Neg (Neg) U Amphetamin/Meth Scrn Neg (Neg) MDMA (Ecstasy) Screen Neg (Neg) U Benzodiazepines Scrn Neg (Neg) Ur Cocaine Metabolite Neg (Neg) U Marijuana (THC) Screen Neg (Neg) COVID-19 Eval Order CovFluRsv at [facility] SARS-CoV-2 (PCR) NEGATIVE (Negative) Influenza Type A (PCR) Negative (Neg) Influenza Type B (PCR) Negative (Neg) RSV (RT-PCR) Negative (Neg) 07/27/20 07/27/20 07/27/20 Range/Units 15:23 15:12 15:10 WBC (4.8-10.8) K/uL RBC (4.7-6.1) M/uL Hgb (14.0-18.0) g/dL Hct (42-52) % MCV (80-100) fL MCH (25-34) pg MCHC (32-36) g/dL RDW Std Deviation (36.4-46.3) fL RDW Coeff of Kunal (11.5-14.5) % Plt Count (130-400) K/uL MPV (7.4-10.4) fL Immature Gran % (Auto) % Neut % (Auto) % Lymph % (Auto) % [place] % (Auto) % Eos % (Auto) % Baso % (Auto) % Neut # (Auto) (1.4-6.5) K/uL Lymph # (Auto) (1.2-3.4) K/uL [place] # (Auto) (0.11-0.59) K/uL Eos # (Auto) (0-0.5) K/uL Baso # (Auto) (0-0.2) K/uL Immature Gran # (Auto) (0.00-0.02) K/uL PT 12.1 H (9.0-12.0) Seconds INR 1.2 H (0.9-1.1) Sodium 132 L (136-145) mmol/L Potassium 4.4 (3.5-5.1) mmol/L Chloride 102 (98-107) mmol/L Carbon Dioxide 26 (21-32) mmol/L Anion Gap 4.0 (3-11) BUN 10 (7-18) mg/dl Creatinine 0.74 (0.6-1.4) mg/dl Est Cr Clr Drug Dosing 183.7 ml/min Est GFR ( Amer) 137.5 Est GFR (Non-Af Amer) 118.7 BUN/Creatinine Ratio 12.8 (10-20) Glucose 101 H (70-99) mg/dl Calcium 9.3 (8.5-10.1) mg/dl Magnesium (1.8-2.4) mg/dl Total Bilirubin 13.2 H (0.2-1) mg/dl AST 195 H (15-37) U/L ALT 107 H (12-78) U/L Alkaline Phosphatase 300 H (45-117) U/L Total Protein 6.6 (6.4-8.2) gm/dl Albumin 2.1 L (3.4-5.0) gm/dl Globulin 4.5 H (2.5-4.0) gm/dl Albumin/Globulin Ratio 0.5 L (0.9-2) Lipase 184 (73-393) U/L Urine Color Dark Yellow Urine Appearance Clear (Clear) Urine pH 6.0 (4.5-7.5) Ur Specific [place] 1.019 (1.000-1.030) Urine Protein Negative (Negative) Urine Glucose (UA) Negative (Negative) Urine Ketones Trace H (Negative) Urine Blood Negative (Negative) Urine Nitrite Positive A (Negative) Urine Bilirubin 3+ H (Negative) Urine Urobilinogen Negative (Negative) Ur Leukocyte Esterase Negative (Negative) Urine WBC (Auto) 0 (0-5) /hpf Urine RBC (Auto) 5-10 H (0-4) /hpf U Hyaline Cast (Auto) 0 (0-5) /lpf U Epithel Cells (Auto) 0-5 (0-5) /lpf Urine Bacteria (Auto) Negative (Negative) Urine Opiates Screen (Neg) Ur Methadone, Qual (Neg) Urine Barbiturates (Neg) Ur Phencyclidine (PCP) (Neg) U Amphetamin/Meth Scrn (Neg) MDMA (Ecstasy) Screen (Neg) U Benzodiazepines Scrn (Neg) Ur Cocaine Metabolite (Neg) U Marijuana (THC) Screen (Neg) COVID-19 Eval Order SARS-CoV-2 (PCR) (Negative) Influenza Type A (PCR) (Neg) Influenza Type B (PCR) (Neg) RSV (RT-PCR) (Neg) 07/27/20 Range/Units 15:10 WBC 25.09 H (4.8-10.8) K/uL RBC 4.35 L (4.7-6.1) M/uL Hgb 14.8 (14.0-18.0) g/dL Hct 42.7 (42-52) % MCV 98.2 (80-100) fL MCH 34.0 (25-34) pg MCHC 34.7 (32-36) g/dL RDW Std Deviation 68.4 H (36.4-46.3) fL RDW Coeff of Kunal 19.0 H (11.5-14.5) % Plt Count 514 H (130-400) K/uL MPV 10.7 H (7.4-10.4) fL Immature Gran % (Auto) 2.9 % Neut % (Auto) 77.5 % Lymph % (Auto) 9.5 % [place] % (Auto) 9.6 % Eos % (Auto) 0.2 % Baso % (Auto) 0.3 % Neut # (Auto) 19.46 H (1.4-6.5) K/uL Lymph # (Auto) 2.39 (1.2-3.4) K/uL [place] # (Auto) 2.41 H (0.11-0.59) K/uL Eos # (Auto) 0.04 (0-0.5) K/uL Baso # (Auto) 0.07 (0-0.2) K/uL Immature Gran # (Auto) 0.72 H (0.00-0.02) K/uL PT (9.0-12.0) Seconds INR (0.9-1.1) Sodium (136-145) mmol/L Potassium (3.5-5.1) mmol/L Chloride (98-107) mmol/L Carbon Dioxide (21-32) mmol/L Anion Gap (3-11) BUN (7-18) mg/dl Creatinine (0.6-1.4) mg/dl Est Cr Clr Drug Dosing ml/min Est GFR ( Amer) Est GFR (Non-Af Amer) BUN/Creatinine Ratio (10-20) Glucose (70-99) mg/dl Calcium (8.5-10.1) mg/dl Magnesium (1.8-2.4) mg/dl Total Bilirubin (0.2-1) mg/dl AST (15-37) U/L ALT (12-78) U/L Alkaline Phosphatase (45-117) U/L Total Protein (6.4-8.2) gm/dl Albumin (3.4-5.0) gm/dl Globulin (2.5-4.0) gm/dl Albumin/Globulin Ratio (0.9-2) Lipase (73-393) U/L Urine Color Urine Appearance (Clear) Urine pH (4.5-7.5) Ur Specific [place] (1.000-1.030) Urine Protein (Negative) Urine Glucose (UA) (Negative) Urine Ketones (Negative) Urine Blood (Negative) Urine Nitrite (Negative) Urine Bilirubin (Negative) Urine Urobilinogen (Negative) Ur Leukocyte Esterase (Negative) Urine WBC (Auto) (0-5) /hpf Urine RBC (Auto) (0-4) /hpf U Hyaline Cast (Auto) (0-5) /lpf U Epithel Cells (Auto) (0-5) /lpf Urine Bacteria (Auto) (Negative) Urine Opiates Screen (Neg) Ur Methadone, Qual (Neg) Urine Barbiturates (Neg) Ur Phencyclidine (PCP) (Neg) U Amphetamin/Meth Scrn (Neg) MDMA (Ecstasy) Screen (Neg) U Benzodiazepines Scrn (Neg) Ur Cocaine Metabolite (Neg) U Marijuana (THC) Screen (Neg) COVID-19 Eval Order SARS-CoV-2 (PCR) (Negative) Influenza Type A (PCR) (Neg) Influenza Type B (PCR) (Neg) RSV (RT-PCR) (Neg) (1) Alcoholic hepatitis Ascites presence: unspecified Qualified Code(s): K70.10 - Alcoholic hepatitis without ascites
--- NOTE | 2020-07-28 13:51 | Hospitalist Progress Note ---
Date of Service July 28, 2020 Assessment & Plan (1) Alcoholic hepatitis: This is a 35yo M with a PMH of HTN, HLD, depression, history of gastric bypass (2005), ongoing tobacco use, history of heavy alcohol use recently admitted with alcoholic hepatitis who was directed to [facility] by GI provider for infectious workup due to leukocytosis. Following with GI for alcoholic hepatitis, started on prednisolone 40mg PO daily on 07/24/19 Concern in GI clinic for underlying infection vs. steroid-induced leukocytosis On admission WBC 25, plt 514, PT 12, INR 1.2, Tbili 13.2, AST 195, ALT 107, alk phos 300 (downtrending so far) Afebrile, mid RUQ pain, no ascites on abdominal ultrasound so did not pursue diagnostic paracentesis at this time Continue steroids, routine GI consult, repeat CMP and PT/INR tomorrow Denies etoh or Tylenol use since early June. Utox -unremarkable Appreciate GI input and recommendation Awaiting urine and blood cultures has been on intravenous ceftriaxone Clinically a lot better today and wants to be discharged (2) Leukocytosis: Afebrile, UA with nitrites, no leuk esterase or urine bacteria. Empiric Rocephin initiated Abdominal ultrasound without presence of ascites CXR pending Likely steroid induced but will continue infectious workup - urine cx and blood cx pending White count remains elevated at 23,000 and this a little improved from yesterday's of 25,000 (3) Thrombocytosis: Plt count 514, likely steroid-induced Remains stable at 421 (4) HTN (hypertension): Continue lisinopril (5) HLD (hyperlipidemia): Diet controlled DVT Ppx: SQ Lovenox Code status: FULL PCP: Jim Dispo: Admitted to med/surg. Plan to return home once medically stable. Likely discharge tomorrow Admission and Anticipated Discharge Date Admission Date: July 27, 2020 Subjective 07/28/2020 The patient was seen and examined in medical telemetry unit He has been feeling much better today Denies any abdominal pain or bloating and does not have any nausea and/or vomiting No fever and/or chills and has been tolerating diet as at home He wants to go home. Review of Systems Review of Systems: All systems reviewed and are unremarkable except as noted below Gastrointestinal: + early satiety; no abdominal pain, no bloating, no nausea and no vomiting Physical Exam Physical Exam: Lying in bed comfortably Constitutional: well developed, well nourished and + obese; not ill appearing Eyes: + conjunctival abnormality (Has jaundice) ENMT: external ear and nose normal, oropharynx normal Neck: trachea midline, no thyromegaly Respiratory: no respiratory distress Auscultation: lungs clear to auscultation bilaterally Cardiovascular: Rate/Rhythm: regular rate and regular rhythm Heart Sounds: no murmur Extremities: + edema Gastrointestinal (Abdomen): Inspection/Auscultation: + abdomen distended and normal bowel sounds Percussion/Palpation: abdomen soft; abdomen nontender Musculoskeletal: No acute arthritis involving any joint Neurologic: Alert, awake and oriented x3 Psychiatric: A+Ox3, euthymic affect Lymphatic: no cervical or axillary lymphadenopathy Results & Data Results & Data ([facility]) Vital Signs (Past 12 Hours) Vital Signs Temp Pulse Resp BP Pulse Ox 07/28/20 07:38 36.5 C 69 16 116/75 97 Laboratory Results Short CBC 07/27/20 07/28/20 Range/Units 15:10 05:45 WBC 25.09 H 23.00 H (4.8-10.8) K/uL Hgb 14.8 14.3 (14.0-18.0) g/dL Hct 42.7 42.0 (42-52) % Plt Count 514 H 421 H (130-400) K/uL BMP 07/27/20 07/28/20 15:10 05:45 Sodium 132 L 135 L Potassium 4.4 3.9 Chloride 102 102 Carbon Dioxide 26 30 BUN 10 10 Creatinine 0.74 0.72 Glucose 101 H 83 Calcium 9.3 8.8 Liver Function 07/27/20 07/28/20 Range/Units 15:10 05:45 Total Bilirubin 13.2 H 12.2 H (0.2-1) mg/dl AST 195 H 187 H (15-37) U/L ALT 107 H 107 H (12-78) U/L Alkaline Phosphatase 300 H 280 H (45-117) U/L Albumin 2.1 L 2.0 L (3.4-5.0) gm/dl Urine 07/27/20 Range/Units 15:12 Urine Color Dark Yellow Urine Appearance Clear (Clear) Urine pH 6.0 (4.5-7.5) Ur Specific [place] 1.019 (1.000-1.030) Urine Protein Negative (Negative) Urine Glucose (UA) Negative (Negative) Medications Administered Current Inpatient Medications Calcium Citrate (Calcium Citrate 950 Mg Tab) 950 mg PO DAILY [facility] Stop: 08/27/20 08:59 Last Admin: 07/28/20 07:38 Dose: 950 mg Documented by: Cyanocobalamin (Cyanocobalamin (Vitamin B-12) 100 Mcg Tablet) [facility] [place] Stop: 08/27/20 08:59 Last Admin: 07/28/20 07:38 Dose: 100 mcg Documented by: Enoxaparin Sodium (Enoxaparin Inj 40 Mg/0.4 Ml Syr) 40 mg SQ Q24H [facility] Stop: 08/26/20 19:59 Last Admin: 07/27/20 20:40 Dose: 40 mg Documented by: Folic Acid (Folic Acid 1 Mg Tab) 1 mg PO QAM [facility] Stop: 08/27/20 08:59 Last Admin: 07/28/20 07:38 Dose: 1 mg Documented by: Hydroxyzine HCl (Hydroxyzine Hcl 25 Mg Tab) 25 mg PO Q8 PRN PRN Reason: Anxiety Stop: 08/26/20 19:47 Last Admin: 07/27/20 20:46 Dose: 25 mg Documented by: Ceftriaxone Sodium 2,000 mg/ (Dextrose) 70 mls @ 100 mls/hr IV Q24H [facility]; Protocol Stop: 08/07/20 17:59 Lisinopril (Lisinopril 5 Mg Tab) 5 mg PO QAM [facility] Stop: 08/27/20 08:59 Last Admin: 07/28/20 07:38 Dose: 5 mg Documented by: Multivitamins (Multivitamin Tab) 1 tab PO DAILY [facility] Stop: 08/27/20 08:59 Last Admin: 07/28/20 07:38 Dose: 1 tab Documented by: Ondansetron HCl (Ondansetron Inj 2 Mg/Ml 2 Ml Vial) 4 mg IV Q6H PRN PRN Reason: Nausea Stop: 08/26/20 19:26 Polyethylene Glycol (Polyethylene (Miralax) 17 Gm Pack) 17 gm PO DAILY PRN PRN Reason: Constipation Stop: 08/26/20 19:26 Potassium Chloride (Potassium Chloride Crtab 20 Meq Tabcr) 20 meq PO BID [facility] Stop: 08/26/20 20:59 Last Admin: 07/28/20 07:37 Dose: 20 meq Documented by: Prednisolone (Prednisolone Syrup 15 Mg/5 Ml Btl) 40 mg PO DAILY [facility] Stop: 08/27/20 08:59 Last Admin: 07/28/20 07:38 Dose: 40 mg Documented by: Thiamine HCl (Thiamine Hcl 100 Mg Tab) 100 mg PO QAM [facility] Stop: 08/27/20 08:59 Last Admin: 07/28/20 07:38 Dose: 100 mg Documented by: Vitamin D (Cholecalciferol 400 Units 10 Mcg Tab) 400 units PO QAM [facility] Stop: 08/27/20 08:59 Last Admin: 07/28/20 07:38 Dose: 400 units Documented by: (1) Alcoholic hepatitis Ascites presence: unspecified Qualified Code(s): K70.10 - Alcoholic hepatitis without ascites (2) Leukocytosis Leukocytosis type: unspecified Qualified Code(s): D72.829 - Elevated white blood cell count, unspecified
[2020-07-28] MEDS ORDERED: cefTRIAXone SODIUM 2,000 MG in DEXTROSE 5% 50 ML IV SCH (18:00)
--- NOTE | 2020-07-29 07:51 | Discharge Summary ---
Date of Service July 29, 2020 Admission HPI Per Admitting Provider This is a 35yo M with a PMH of HTN, HLD, depression, history of gastric bypass (2005), ongoing tobacco use, history of heavy alcohol use recently admitted with alcoholic hepatitis who was directed to [facility] by GI provider for infectious workup due to leukocytosis. Was recently admitted from 07/09-07/14 with alcoholic hepatitis/hyperbilirubinemia and hypertensive urgency in the setting of alcohol withdrawal. GI consulted during admission for alcoholic hepatitis and was seen in follow-up last week. Lab work from 07/23 showed mild leukocytosis of 12.5 along with tbili of 20. Has mild discomfort in right upper quadrant that has been present since last Sunday, which is why steroids were initiated on Sunday. Since then, patient has been feeling progressively better. Had repeat lab work on 07/26 that showed leukocytosis of 21.75 along with downtrending tbili. Was directed to come to ED for infectious workup by DAYIS Pfeiffer who is concerned about possible SBP or underlying infection vs steroid-induced leukocytosis. Denies any fever or chills. No nausea or vomiting. Has been having 2-3 episodes of loose stools since discharge home from the hospital. No headache, lightheadedness, chest pain, shortness of breath, wheezing, dysuria, melena or hematochezia. Denies any alcohol or Tylenol use since discharge from the hospital on 07/14. Admission Exam Per Admitting Provider Physical Exam: General Appearance: WD/WN, vitals as above, NAD, sitting up in bed, obese, pleasant, conversing easily Head: normocephalic, atraumatic Eyes: normal inspection, PERRL, conjunctivae normal, anicteric sclerae ENT: external ear and nose normal, oropharynx normal Neck: normal visual inspection, trachea midline, no thyromegaly Respiratory: normal respiratory effort, lungs clear to auscultation, no wheeze, rales, rhonchi. No accessory muscle use Cardiovascular: regular rate, rhythm, no murmur, normal peripheral pulses, no BLE edema. Vessels: no JVD Chest: normal inspection of chest Abdomen/GI: normal bowel sounds, soft, mild RUQ TTP, no hepatosplenomegaly Extremities/Musculoskeletal: no cyanosis or clubbing, extremities motor strength 5/5 Neurologic: PERRL, EOMI, accommodation nl, no face palsy, no dysarthria, CN's II-XI intact bilaterally and moves all extremities Psychiatric: A+Ox3, euthymic affect Skin: no rashes, warm/dry, + jaundice Principal Diagnosis Alcoholic Hepatitis. Signed out AMA Discharge Data Allergies Allergy/AdvReac Type Severity Reaction Status Date / Time Penicillins Allergy Verified 07/27/20 15:39 Sulfa (Sulfonamide Allergy Verified 07/27/20 15:39 Antibiotics) sulfamethoxazole Allergy Verified 07/27/20 15:39 Consultations 07/27/20 16:23 ED Decision to Admit Stat 07/28/20 08:00 Consult Gastroenterology Routine Ordered Studies 07/27/20 17:26 US abdomen ltd ascites Routine Hospital Course (1) Alcoholic hepatitis: This is a 35yo M with a PMH of HTN, HLD, depression, history of gastric bypass (2005), ongoing tobacco use, history of heavy alcohol use recently admitted with alcoholic hepatitis who was directed to [facility] by GI provider for infectious workup due to leukocytosis. Following with GI for alcoholic hepatitis, started on prednisolone 40mg PO daily on 07/24/19 Concern in GI clinic for underlying infection vs. steroid-induced leukocytosis On admission WBC 25, plt 514, PT 12, INR 1.2, Tbili 13.2, AST 195, ALT 107, alk phos 300 (downtrending so far) Afebrile, mid RUQ pain, no ascites on abdominal ultrasound so did not pursue diagnostic paracentesis at this time Continue steroids, routine GI consult, repeat CMP and PT/INR tomorrow Denies etoh or Tylenol use since early June. Utox -unremarkable Appreciate GI input and recommendation Awaiting urine and blood cultures has been on intravenous ceftriaxone Clinically a lot better today and wants to be discharged (2) Leukocytosis: Afebrile, UA with nitrites, no leuk esterase or urine bacteria. Empiric Rocephin initiated Abdominal ultrasound without presence of ascites CXR pending Likely steroid induced but will continue infectious workup - urine cx and blood cx pending White count remains elevated at 23,000 and this a little improved from yesterday's of 25,000 (3) Thrombocytosis: Plt count 514, likely steroid-induced Remains stable at 421 (4) HTN (hypertension): Continue lisinopril (5) HLD (hyperlipidemia): Diet controlled DVT Ppx: SQ Lovenox Code status: FULL PCP: Jim Dispo: Admitted to med/surg. Plan to return home once medically stable. Likely discharge tomorrow Total Time Total Time Spent Total Time Spent (In Minutes): 20 minutres Total Time Includes: Other Discharge Plan Discharge Items Patient Disposition: Against Medical Advice Reason For Visit: ETOH HEPATITIS LEUKOCYTOSIS Activity: As commented below Activity Comment: as tolerated Non-emergency contact: Primary Care Provider and [employer] Follow-up/Referrals: Dina Pfeiffer CRNP [Primary Care Provider] - Pending Studies at Discharge: No Stand-Alone Forms: [facility] [employer], Smoking Cessation Medications and DC Order Prescriptions: Continued multivitamin [Multiple Vitamins] Tablet 1 tab PO DAILY RF: 0 cyanocobalamin (vitamin B-12) [Vitamin B-12] 100 mcg Tablet 100 mcg PO QAM 30 Days Qty: 30 RF: 0 thiamine HCl (vitamin B1) [Vitamin B-1] 100 mg Tablet 100 mg PO QAM 30 Days Qty: 30 RF: 0 potassium chloride [Klor-Con M20] 20 mEq Tablet,Er Particles/Crystals 20 meq PO BID 30 Days Qty: 60 RF: 0 folic acid 1 mg Tablet 1 mg PO QAM 30 Days Qty: 30 RF: 0 hydroxyzine HCl 25 mg Tablet 25 mg PO Q8 PRN (Reason: Anxiety) Qty: 90 RF: 0 lisinopril [Zestril] 5 mg Tablet 5 mg PO QAM 30 Days Qty: 30 RF: 0 cholecalciferol (vitamin D3) [Vitamin D3] 10 mcg (400 unit) Tablet 400 unit PO QAM 30 Days Qty: 30 RF: 0 prednisolone sodium phosphate 15 mg/5 mL (3 mg/mL) solution 40 mg PO DAILY RF: 0 calcium citrate [Calcitrate] 200 mg (950 mg) tablet 950 mg PO DAILY RF: 0 Discharge Orders: Discharge Order (Routine); Ordered 07/28/20 Ordered By: Mohinder Marroquin Left Against Medical Advice (Routine); Ordered 07/28/20 Ordered By: Mohinder Marroquin Admission Data Admit Date/Time: 07/27/20 17:17 Attending Provider: Jennifer Larson Admit Provider: Kwan Tejada Primary Care Provider: Dina Pfeiffer Other Providers: Kwan Tejada ; Maribeth Santos Other Interventions: Discharge Summary Assessment (RN) Last Done: 07/28/20 21:18
--- NOTE | 2020-07-29 21:44 | Hospitalist Progress Note ---
Date of Service July 28 2020 July 29, 2020 Assessment & Plan Admission and Anticipated Discharge Date Admission Date: July 27, 2020 Subjective Patient wanted to be discharged. Advised to stay overnight as Am providers wan joaquim to stay in the hospital. Patient says he is feeling fine and wanted to go home and wanted to sign out AMA. Explained the risk of AMA of readmissions or worsening of condition and even but patient signed out AMA.
== END 2020-07-28 20:15 | disposition left against medical advice (07) | DRG 433 ==
LOC: ED 14:38 → 2N 17:17 → SUATTDRO 17:17 → 2N 18:28

== ENCOUNTER 2020-10-04 12:59 | Inpatient (IN) ==
[2020-10-04] MEDS ORDERED: SODIUM CHLORIDE 0.9% 250 ML IV PRN ×4 (13:16→19:36)
--- NOTE | 2020-10-04 13:28 | Emergency Department Note ---
History of Present Illness General Chief complaint: Rectal Bleed Stated complaint: DIARRHEA, RECTAL BLEEDING, SYNCOPE Time Seen by Provider: 10/04/20 13:07 History of Present Illness This is a 35-year-old male that presents to the emergency department via ambulance with complaints "diarrhea, rectal bleeding, syncope". The patient has history of gastric bypass and alcohol abuse. He notes that he has relapsed over the past 2 weeks and is drinking about 1/5 of whiskey per day. He last drank yesterday. This morning around 3 AM he began with diarrhea that was initially purple and then bright red in nature. He states that this has progressed and has had several bouts of this diarrhea that has been predominantly blood. He then felt quite dehydrated and called his mother. His mother then came over and he had a syncopal event x1. His mother also notes that there was a tremendous amount of blood throughout his residence. Ambulance was then summoned. On the way here there was reports of 2 near syncopal events. They note that the patient appears pale. The patient at this time feel short of breath. He denies any pain or chest pain. No nausea, vomiting or hematemesis. He has never had a history of GI bleed before. Patient does note a history of gastric ulceration near the pouch. No anticoagulant use. Home Medications Medication Instructions Recorded Confirmed Type multivitamin [Multiple Vitamins] 1 tab PO DAILY 07/09/20 10/04/20 History hydroxyzine HCl 25 mg PO Q8 PRN #90 tab 07/14/20 10/04/20 Rx calcium citrate [Calcitrate] 200 mg PO DAILY 10/04/20 10/04/20 History Allergies Allergy/AdvReac Type Severity Reaction Status Date / Time Penicillins Allergy Unknown Unknown Verified 10/04/20 15:49 Sulfa (Sulfonamide Allergy Unknown Unknown Verified 10/04/20 15:49 Antibiotics) sulfamethoxazole Allergy Unknown Unknown Verified 10/04/20 15:49 Past Med/Surg History Medical History Alcohol use disorder Alcoholism Allergic rhinitis HLD (hyperlipidemia) HTN (hypertension) Major depressive disorder Obesity Tobacco use Tobacco use disorder Surgical History H/O gastric bypass Family History Other Heart disease Social History Smoking Status: Current some day smoker Tobacco Type: Cigarettes Second Hand Exposure: No; Hx Alcohol Use: Yes Alcohol type: hard liquor Hx Substance Use: No Preferred Language: Ukrainian Communication Ability: Effective Certified Registered Nurse Practitioner Required: No Beliefs That Will Affect Care: None Current Living Situation: Family Feels Safe at Home: Yes Assistive Devices: None Review of Systems A total of 10 systems reviewed and were otherwise negative Physical Exam Vital Signs Vital Signs - 24 hr 10/04/20 13:04 10/04/20 13:05 10/04/20 13:09 Temperature 36.9 C Temperature Source Oral Pulse Rate 104 H 105 H 99 H Pulse Rate [Apical] 105 H Pulse Rate from SpO2 Sensor 105 H 102 H Pulse Rhythm Pulse Strength Respiratory Rate 30 H 24 25 H Respiratory Effort / Characteristics Non-Labored Spontaneous Respiratory Depth Normal Respiratory Pattern Regular Blood Pressure 91/60 L 91/60 L 96/57 L Blood Pressure [Right Arm] 91/60 L Blood Pressure Mean 70 70 70 Blood Pressure Mean [Right Arm] 70 Blood Pressure Position Pulse Oximetry 100 100 100 Oxygen Delivery Method Room Air Oxygen Flow Rate Sepsis Recent Fever Within 48 Hours No Sepsis New/Unexplained Change in Mental Status No Sepsis Action Taken by Nursing No Action Required 10/04/20 13:15 10/04/20 13:21 10/04/20 13:34 Temperature Temperature Source Pulse Rate 110 H 105 H 104 H Pulse Rate [Apical] Pulse Rate from SpO2 Sensor 110 H 104 H Pulse Rhythm Pulse Strength Respiratory Rate 33 H 24 33 H Respiratory Effort / Characteristics Respiratory Depth Respiratory Pattern Blood Pressure 84/72 L 102/52 L Blood Pressure [Right Arm] Blood Pressure Mean 76 68 Blood Pressure Mean [Right Arm] Blood Pressure Position Pulse Oximetry 100 100 100 Oxygen Delivery Method Room Air Oxygen Flow Rate Sepsis Recent Fever Within 48 Hours Sepsis New/Unexplained Change in Mental Status Sepsis Action Taken by Nursing 10/04/20 13:46 10/04/20 14:54 10/04/20 15:00 Temperature 36.5 C Temperature Source Oral Pulse Rate 104 H 119 H 112 H Pulse Rate [Apical] Pulse Rate from SpO2 Sensor 119 H Pulse Rhythm Regular Pulse Strength Normal Respiratory Rate 38 H 23 36 H Respiratory Effort / Characteristics Respiratory Depth Respiratory Pattern Blood Pressure 93/72 L 112/46 L 93/36 L Blood Pressure [Right Arm] Blood Pressure Mean 79 68 55 Blood Pressure Mean [Right Arm] Blood Pressure Position Sitting Pulse Oximetry 100 100 Oxygen Delivery Method Oxygen Flow Rate 2 Sepsis Recent Fever Within 48 Hours Sepsis New/Unexplained Change in Mental Status Sepsis Action Taken by Nursing 10/04/20 15:01 10/04/20 15:15 10/04/20 15:16 Temperature 36.6 C Temperature Source Oral Pulse Rate 112 H 105 H 110 H Pulse Rate [Apical] Pulse Rate from SpO2 Sensor 112 H 110 H Pulse Rhythm Pulse Strength Respiratory Rate 32 H 24 31 H Respiratory Effort / Characteristics Respiratory Depth Respiratory Pattern Blood Pressure 93/37 L 92/53 L 92/53 L Blood Pressure [Right Arm] Blood Pressure Mean 55 66 66 Blood Pressure Mean [Right Arm] Blood Pressure Position Lying Pulse Oximetry 100 100 100 Oxygen Delivery Method Oxygen Flow Rate 2 Sepsis Recent Fever Within 48 Hours Sepsis New/Unexplained Change in Mental Status Sepsis Action Taken by Nursing 10/04/20 15:30 10/04/20 15:46 10/04/20 15:52 Temperature Temperature Source Pulse Rate 106 H 105 H 105 H Pulse Rate [Apical] Pulse Rate from SpO2 Sensor 106 H 106 H Pulse Rhythm Regular Pulse Strength Normal Respiratory Rate 44 H 33 H 33 H Respiratory Effort / Characteristics Respiratory Depth Respiratory Pattern Blood Pressure 106/45 L 106/54 L 106/54 L Blood Pressure [Right Arm] Blood Pressure Mean 65 71 71 Blood Pressure Mean [Right Arm] Blood Pressure Position Lying Lying Pulse Oximetry 100 100 100 Oxygen Delivery Method Oxygen Flow Rate 2 2 Sepsis Recent Fever Within 48 Hours Sepsis New/Unexplained Change in Mental Status Sepsis Action Taken by Nursing 10/04/20 16:00 10/04/20 16:01 10/04/20 16:16 Temperature Temperature Source Pulse Rate 109 H 109 H 108 H Pulse Rate [Apical] Pulse Rate from SpO2 Sensor 109 H 108 H Pulse Rhythm Pulse Strength Respiratory Rate 40 H 40 H 35 H Respiratory Effort / Characteristics Respiratory Depth Respiratory Pattern Blood Pressure 116/55 L 116/55 L 133/72 Blood Pressure [Right Arm] Blood Pressure Mean 75 75 92 Blood Pressure Mean [Right Arm] Blood Pressure Position Lying Pulse Oximetry 100 100 100 Oxygen Delivery Method Oxygen Flow Rate 2 Sepsis Recent Fever Within 48 Hours Sepsis New/Unexplained Change in Mental Status Sepsis Action Taken by Nursing VITAL SIGNS - Vital signs and nursing notes were reviewed. Tachycardic, otherwise stable at this time. GENERAL - 35-year-old male appearing his stated age who is in no acute distress but appears tired. Communicates well with provider and answers questions appropriately. SKIN - Without rashes. Pale, jaundice. HEAD - NC/AT. EYES - PERRL with EOMI bilaterally. Sclera anicteric. EARS - No deformities of external structures noted on gross examination bilaterally. NOSE - Midline and without cyanosis. No epistaxis or purulent drainage noted. MOUTH/OROPHARYNX - Without perioral cyanosis. NECK - Neck with FROM. No nuchal rigidity. LUNGS - Chest wall symmetric without accessory muscle use, intercostals retractions, or central cyanosis. Normal vesicular breath sounds CTA B/L. No wheezes, rales, or rhonchi appreciated. CARDIAC - Tachycardic at a regular rate with S1/S2. No murmur, rubs, or gallops appreciated. ABDOMEN - Abdominal contour normal without pulsations or visible masses. BS normoactive all four quadrants. No tenderness, palpable masses, hepatosplenomegaly, or ascites noted. EXTREMITIES - No clubbing or peripheral cyanosis. No pretibial edema present. +5/5 strength noted in UE/LE bilaterally. NEUROLOGIC - Cranial nerves II through XII grossly intact. PSYCH - A&Ox3 and cooperates fully with examiner. Pt is very pleasant and interacts well with examiner. Course Administered Medications Pantoprazole Sodium 40 mg/ (Dextrose) 100 mls @ 20 mls/hr IV Q5H RONALDO Stop: 11/03/20 15:29 Last Admin: 10/04/20 15:40 Dose: 8 mg/hr, 20 mls/hr Documented by: [id number] Discontinued Medications Ceftriaxone Sodium (Rocephin) 2,000 mg in 70 mls @ 140 mls/hr IV NOW STA Stop: 10/04/20 15:34 Last Infusion: 10/04/20 16:02 Dose: 0 mls/hr Documented by: [id number] Admin: 10/04/20 15:25 Dose: 140 mls/hr Documented by: [id number] Pantoprazole Sodium 80 mg/ (Dextrose) 120 mls @ 480 mls/hr IV NOW STA Stop: 10/04/20 15:21 Last Infusion: 10/04/20 15:40 Dose: 0 mls/hr Documented by: [id number] Admin: 10/04/20 15:25 Dose: 480 mls/hr Documented by: [id number] Sodium Chloride (Nss 1000ml) 1,000 mls @ 999 mls/hr IV .Q1H1M RONALDO Stop: 10/04/20 17:30 Last Infusion: 10/04/20 16:46 Dose: 0 mls/hr Documented by: [id number] Admin: 10/04/20 15:45 Dose: 999 mls/hr Documented by: [id number] Ioversol (Optiray 320 100ml) 93 ml IV ONCE ONE Stop: 10/04/20 17:19 Last Admin: 10/04/20 17:18 Dose: 1 ml Documented by: [id number] Lorazepam (Lorazepam 2 Mg/Ml Vial (Im Use)) Confirm Administered Dose 2 mg .ROUTE .STK-MED ONE Stop: 10/04/20 16:18 Last Admin: 10/04/20 16:23 Dose: 2 mg Documented by: [id number] Medical Decision Making Laboratory Data Result diagrams: 10/04/20 13:46 10/04/20 13:46 Lab Results 10/04/20 10/04/20 10/04/20 Range/Units 13:46 13:46 13:46 WBC (4.8-10.8) K/uL RBC (4.7-6.1) M/uL Hgb (14.0-18.0) g/dL POC Hgb (14.0-18.0) g/dl Hct (42-52) % POC Hct (42-52) % MCV (80-100) fL MCH (25-34) pg MCHC (32-36) g/dL RDW Std Deviation (36.4-46.3) fL RDW Coeff of Kunal (11.5-14.5) % Plt Count (130-400) K/uL MPV (7.4-10.4) fL Immature Gran % (Auto) % Neut % (Auto) % Lymph % (Auto) % [place] % (Auto) % Eos % (Auto) % Baso % (Auto) % Neut # (Auto) (1.4-6.5) K/uL Lymph # (Auto) (1.2-3.4) K/uL [place] # (Auto) (0.11-0.59) K/uL Eos # (Auto) (0-0.5) K/uL Baso # (Auto) (0-0.2) K/uL Immature Gran # (Auto) (0.00-0.02) K/uL Echinocytes PT (9.0-12.0) Seconds INR (0.9-1.1) APTT (21.0-31.0) Seconds PTT Ratio POC Sodium (135-144) mmol/L Sodium 134 L (136-145) mmol/L POC Potassium (3.3-5.0) mmol/L Potassium 3.1 L (3.5-5.1) mmol/L POC Chloride (101-112) mmol/L Chloride 95 L (98-107) mmol/L Carbon Dioxide 11 L (21-32) mmol/L POC Total CO2 (24-31) mmol/L Anion Gap 28.0 H (3-11) POC Anion Gap (16-25) mmol/L POC BUN (7-18) mg/dl BUN 5 L (7-18) mg/dl Creatinine 1.78 H (0.6-1.4) mg/dl POC Creatinine (0.6-1.3) mg/dl Est Cr Clr Drug Dosing 78.6 ml/min Est GFR ( Amer) 55.6 ml/min Est GFR (Non-Af Amer) 48.0 ml/min BUN/Creatinine Ratio 3.0 L (10-20) Glucose 118 H (70-99) mg/dl POC Glucose (other) (70-99) mg/dl Lactate (0.4-2.0) mmol/L Calcium 7.3 L (8.5-10.1) mg/dl POC Ioniz Calcium Pura (1.12-1.32) mmol/l Magnesium 1.7 L (1.8-2.4) mg/dl Total Bilirubin 8.6 H (0.2-1) mg/dl Direct Bilirubin 7.2 H (0-0.2) mg/dl AST 448 H (15-37) U/L ALT 56 (12-78) U/L Alkaline Phosphatase 276 H (45-117) U/L Troponin I < 0.015 (0-0.045) ng/ml Total Protein 4.8 L (6.4-8.2) gm/dl Albumin 1.7 L (3.4-5.0) gm/dl Globulin 3.1 (2.5-4.0) gm/dl Albumin/Globulin Ratio 0.5 L (0.9-2) Lipase 199 (73-393) U/L Procalcitonin (0-0.5) ng/ml Ethyl Alcohol mg/dL 187.0 H (0-3) mg/dl COVID-19 Eval Order SARS-CoV-2 (PCR) (Negative) Blood Type O Positive Blood Type Recheck Antibody Screen NEGATIVE Crossmatch See Detail 10/04/20 10/04/20 10/04/20 Range/Units 13:46 13:46 13:46 WBC 17.77 H (4.8-10.8) K/uL RBC 2.57 L (4.7-6.1) M/uL Hgb 8.8 L (14.0-18.0) g/dL POC Hgb (14.0-18.0) g/dl Hct 25.5 L (42-52) % POC Hct (42-52) % MCV 99.2 (80-100) fL MCH 34.2 H (25-34) pg MCHC 34.5 (32-36) g/dL RDW Std Deviation 55.5 H (36.4-46.3) fL RDW Coeff of Kunal 15.2 H (11.5-14.5) % Plt Count 155 (130-400) K/uL MPV 11.0 H (7.4-10.4) fL Immature Gran % (Auto) 0.3 % Neut % (Auto) 83.7 % Lymph % (Auto) 7.4 % [place] % (Auto) 8.4 % Eos % (Auto) 0.0 % Baso % (Auto) 0.2 % Neut # (Auto) 14.87 H (1.4-6.5) K/uL Lymph # (Auto) 1.32 (1.2-3.4) K/uL [place] # (Auto) 1.49 H (0.11-0.59) K/uL Eos # (Auto) 0.00 (0-0.5) K/uL Baso # (Auto) 0.03 (0-0.2) K/uL Immature Gran # (Auto) 0.06 H (0.00-0.02) K/uL Echinocytes 1+ PT 20.3 H (9.0-12.0) Seconds INR 2.1 H (0.9-1.1) APTT 48.6 H* (21.0-31.0) Seconds PTT Ratio 1.8 POC Sodium (135-144) mmol/L Sodium (136-145) mmol/L POC Potassium (3.3-5.0) mmol/L Potassium (3.5-5.1) mmol/L POC Chloride (101-112) mmol/L Chloride (98-107) mmol/L Carbon Dioxide (21-32) mmol/L POC Total CO2 (24-31) mmol/L Anion Gap (3-11) POC Anion Gap (16-25) mmol/L POC BUN (7-18) mg/dl BUN (7-18) mg/dl Creatinine (0.6-1.4) mg/dl POC Creatinine (0.6-1.3) mg/dl Est Cr Clr Drug Dosing ml/min Est GFR ( Amer) ml/min Est GFR (Non-Af Amer) ml/min BUN/Creatinine Ratio (10-20) Glucose (70-99) mg/dl POC Glucose (other) (70-99) mg/dl Lactate (0.4-2.0) mmol/L Calcium (8.5-10.1) mg/dl POC Ioniz Calcium Pura (1.12-1.32) mmol/l Magnesium (1.8-2.4) mg/dl Total Bilirubin (0.2-1) mg/dl Direct Bilirubin (0-0.2) mg/dl AST (15-37) U/L ALT (12-78) U/L Alkaline Phosphatase (45-117) U/L Troponin I (0-0.045) ng/ml Total Protein (6.4-8.2) gm/dl Albumin (3.4-5.0) gm/dl Globulin (2.5-4.0) gm/dl Albumin/Globulin Ratio (0.9-2) Lipase (73-393) U/L Procalcitonin (0-0.5) ng/ml Ethyl Alcohol mg/dL (0-3) mg/dl COVID-19 Eval Order Covid19 at [facility] SARS-CoV-2 (PCR) (Negative) Blood Type Blood Type Recheck Antibody Screen Crossmatch 10/04/20 10/04/20 10/04/20 Range/Units 13:46 13:47 13:47 WBC (4.8-10.8) K/uL RBC (4.7-6.1) M/uL Hgb (14.0-18.0) g/dL POC Hgb 8.8 L (14.0-18.0) g/dl Hct (42-52) % POC Hct 26 L (42-52) % MCV (80-100) fL MCH (25-34) pg MCHC (32-36) g/dL RDW Std Deviation (36.4-46.3) fL RDW Coeff of Kunal (11.5-14.5) % Plt Count (130-400) K/uL MPV (7.4-10.4) fL Immature Gran % (Auto) % Neut % (Auto) % Lymph % (Auto) % [place] % (Auto) % Eos % (Auto) % Baso % (Auto) % Neut # (Auto) (1.4-6.5) K/uL Lymph # (Auto) (1.2-3.4) K/uL [place] # (Auto) (0.11-0.59) K/uL Eos # (Auto) (0-0.5) K/uL Baso # (Auto) (0-0.2) K/uL Immature Gran # (Auto) (0.00-0.02) K/uL Echinocytes PT (9.0-12.0) Seconds INR (0.9-1.1) APTT (21.0-31.0) Seconds PTT Ratio POC Sodium 130 L (135-144) mmol/L Sodium (136-145) mmol/L POC Potassium 3.0 L (3.3-5.0) mmol/L Potassium (3.5-5.1) mmol/L POC Chloride 91 L (101-112) mmol/L Chloride (98-107) mmol/L Carbon Dioxide (21-32) mmol/L POC Total CO2 11 L (24-31) mmol/L Anion Gap (3-11) POC Anion Gap 33.0 H (16-25) mmol/L POC BUN 4 L (7-18) mg/dl BUN (7-18) mg/dl Creatinine (0.6-1.4) mg/dl POC Creatinine 2.6 H (0.6-1.3) mg/dl Est Cr Clr Drug Dosing ml/min Est GFR ( Amer) ml/min Est GFR (Non-Af Amer) ml/min BUN/Creatinine Ratio (10-20) Glucose (70-99) mg/dl POC Glucose (other) 124 H (70-99) mg/dl Lactate (0.4-2.0) mmol/L Calcium (8.5-10.1) mg/dl POC Ioniz Calcium Pura 0.76 L* (1.12-1.32) mmol/l Magnesium (1.8-2.4) mg/dl Total Bilirubin (0.2-1) mg/dl Direct Bilirubin (0-0.2) mg/dl AST (15-37) U/L ALT (12-78) U/L Alkaline Phosphatase (45-117) U/L Troponin I (0-0.045) ng/ml Total Protein (6.4-8.2) gm/dl Albumin (3.4-5.0) gm/dl Globulin (2.5-4.0) gm/dl Albumin/Globulin Ratio (0.9-2) Lipase (73-393) U/L Procalcitonin 0.70 H (0-0.5) ng/ml Ethyl Alcohol mg/dL (0-3) mg/dl COVID-19 Eval Order SARS-CoV-2 (PCR) NEGATIVE (Negative) Blood Type Blood Type Recheck Antibody Screen Crossmatch 10/04/20 10/04/20 Range/Units 13:48 14:06 WBC (4.8-10.8) K/uL RBC (4.7-6.1) M/uL Hgb (14.0-18.0) g/dL POC Hgb (14.0-18.0) g/dl Hct (42-52) % POC Hct (42-52) % MCV (80-100) fL MCH (25-34) pg MCHC (32-36) g/dL RDW Std Deviation (36.4-46.3) fL RDW Coeff of Kunal (11.5-14.5) % Plt Count (130-400) K/uL MPV (7.4-10.4) fL Immature Gran % (Auto) % Neut % (Auto) % Lymph % (Auto) % [place] % (Auto) % Eos % (Auto) % Baso % (Auto) % Neut # (Auto) (1.4-6.5) K/uL Lymph # (Auto) (1.2-3.4) K/uL [place] # (Auto) (0.11-0.59) K/uL Eos # (Auto) (0-0.5) K/uL Baso # (Auto) (0-0.2) K/uL Immature Gran # (Auto) (0.00-0.02) K/uL Echinocytes PT (9.0-12.0) Seconds INR (0.9-1.1) APTT (21.0-31.0) Seconds PTT Ratio POC Sodium (135-144) mmol/L Sodium (136-145) mmol/L POC Potassium (3.3-5.0) mmol/L Potassium (3.5-5.1) mmol/L POC Chloride (101-112) mmol/L Chloride (98-107) mmol/L Carbon Dioxide (21-32) mmol/L POC Total CO2 (24-31) mmol/L Anion Gap (3-11) POC Anion Gap (16-25) mmol/L POC BUN (7-18) mg/dl BUN (7-18) mg/dl Creatinine (0.6-1.4) mg/dl POC Creatinine (0.6-1.3) mg/dl Est Cr Clr Drug Dosing ml/min Est GFR ( Amer) ml/min Est GFR (Non-Af Amer) ml/min BUN/Creatinine Ratio (10-20) Glucose (70-99) mg/dl POC Glucose (other) (70-99) mg/dl Lactate 17.2 H* (0.4-2.0) mmol/L Calcium (8.5-10.1) mg/dl POC Ioniz Calcium Pura (1.12-1.32) mmol/l Magnesium (1.8-2.4) mg/dl Total Bilirubin (0.2-1) mg/dl Direct Bilirubin (0-0.2) mg/dl AST (15-37) U/L ALT (12-78) U/L Alkaline Phosphatase (45-117) U/L Troponin I (0-0.045) ng/ml Total Protein (6.4-8.2) gm/dl Albumin (3.4-5.0) gm/dl Globulin (2.5-4.0) gm/dl Albumin/Globulin Ratio (0.9-2) Lipase (73-393) U/L Procalcitonin (0-0.5) ng/ml Ethyl Alcohol mg/dL (0-3) mg/dl COVID-19 Eval Order SARS-CoV-2 (PCR) (Negative) Blood Type Blood Type Recheck O Positive Antibody Screen Crossmatch Imaging Data Radiologist's Impression: Abdomen/Pelvis CT 10/04/20 13:17 CT OF THE ABDOMEN AND PELVIS WITH CONTRAST CLINICAL HISTORY: GI bleed. COMPARISON STUDY: Right upper quadrant ultrasound July 10, 2020. MRI of the abdomen July 12, 2020. TECHNIQUE: Following IV administration of 93 mL of Optiray, axial images of the abdomen and pelvis were obtained from the lung bases to the proximal femurs. Images were reviewed in the axial, sagittal, and coronal planes. IV contrast was administered without complication. Automated exposure control was utilized for the study. A dose lowering technique was utilized adhering to the principles of ALARA. CT DOSE: 1863.84 mGy.cm FINDINGS: Several tiny right middle lobe pulmonary nodules are likely benign. There are postoperative findings consistent with Honorio-en-Y gastric bypass. There is no evidence for a bowel obstruction. The appendix is normal. There is mild wall thickening of the ascending colon. There is trace adjacent ascites. Marked hepatic steatosis and moderate hepatomegaly is noted. Gallbladder wall thickening is a nonspecific finding. There is no biliary or pancreatic ductal dilatation. No hepatic lesions are identified. The spleen, adrenal glands, kidneys and pancreas are unremarkable. No peripancreatic infiltration. There is no hydronephrosis. There may be tiny varices within the left paracolic gutter. A Silverio balloon within the bladder is noted. No acute fracture or suspicious lesion is identified within visualized skeletal structures. Major vasculature is patent. The main, left and right portal veins are patent. IMPRESSION: 1. Marked hepatic steatosis and moderate hepatomegaly. Trace ascites. Possible small collaterals. 2. Moderate gallbladder wall thickening, a nonspecific finding. 3. Mild wall thickening of the ascending colon. This is nonspecific in the setting of liver disease although could reflect a colitis. No bowel obstruction. Normal appendix. 4. Status post Honorio-en-Y gastric bypass. No bowel obstruction. ACT 112: Negative or not required by law. Electronically signed by: Edmar Montero M.D. 10/04/2020 5:40 PM Chest X-Ray 10/04/20 13:19 XR chest 1V portable CLINICAL HISTORY: tachycardia, syncope, gi bleed COMPARISON STUDY: 07/27/2020 FINDINGS: The cardiac and mediastinal contours are normal. There is no focal pulmonary consolidation. There is no failure. There is no focal pulmonary consolidation. There is borderline elevation right hemidiaphragm. There is a right internal jugular central venous catheter. The tip projects over the right atrium. There is no pneumothorax.[ IMPRESSION: No active disease in the chest. ACT 112: Negative or not required by law. Electronically signed by: Fausto Ellington M.D. 10/04/2020 3:15 PM MDM Narrative Patient was seen and evaluated as above in room C08. Review was performed of nursing notes and vital signs. I did review pertinent previous visits and patient history. After obtaining a thorough history and physical examination the above work up was performed. Patient presents to us today via ambulance with concerns of bright red blood per rectum since about 3 AM with associated syncopal event and now feeling quite tired. Patient is pale on arrival, jaundiced and is tachycardic and becoming hypotensive. Pt. actively receiving 1L NSS that was started prehospital. Options of care were discussed with the patient. Patient's mother came to bedside. 2 large-bore IVs were ordered as well as labs. As soon as I finished my assessment of the patient I did go and discussed the case with the attending physician who also evaluated the patient. Patient was consented for blood as it was felt that the patient likely has lost a large amount given clinical appearance while we are awaiting official labs. Pt. moved to large bay for placement of central line by attending physician as IV team had difficulty obtaining further access and the only line that was in place was no longer functioning. Please refer to procedure note by ED attending physician for line placement. Patient was then given 1 unit of packed red blood cells here in ED. 2 g of IV Rocephin also ordered. Pantoprazole IV bolus and drip was also ordered. Chest x-ray as well as CT scan of the abdomen pelvis was obtained. Results as above. The attending physician discussed case with the rent and housing investigator and I also discussed the case with the [facility] for further evaluation and management. Please refer to further documentation regarding his stay. Case was discussed with the attending physician. EKG was reviewed by myself and found to be sinus tachycardia at a rate of 104 beats per minute and per my interpretation reveals no ST elevation. QTc 489. QRS 84. An order was placed for continuous cardiac monitoring. The monitor shows a rate of 105 with sinus tachcardia. GCS: 15 In the evaluation and treatment of this patient the following differential diagnoses were entertained: GI bleed, bleeding varicosity, hemorrhoids, acute abdomen, diverticulitis, amoung others. Impression & Plan Acute GI bleeding, BRBPR (bright red blood per rectum), History of alcohol use, History of gastric bypass, Syncope, Tachycardia, Jaundice Discharge Plan Visit Data Chief Complaint: Rectal Bleed Stated Complaint: DIARRHEA, RECTAL BLEEDING, SYNCOPE ED Provider: Dylan Pinzon ED Midlevel Provider: Mauricio Alcantar Discharge Problem: Acute GI bleeding, BRBPR (bright red blood per rectum), History of alcohol use, History of gastric bypass, Syncope, Tachycardia, Jaundice Patient Disposition: Admitted As Inpatient Condition: Fair Discharge Instructions Interventions: ED Discharge Assessment Last Done: 10/04/20 17:38
[2020-10-04 13:54] LABS: Hematocrit (blood only) 25.5 % (42-52); Hemoglobin 8.8 g/dL (14.0-18.0); Mean Corpuscular Hemoglobin 34.2 pg (25-34); Mean Corpuscular Hgb Conc 34.5 g/dL (32-36); Mean Corpuscular Volume 99.2 fL (80-100); Platelet Count 155 K/uL (130-400); RDW Coefficient of Variation 15.2 % (11.5-14.5); RDW Standard Deviation 55.5 fL (36.4-46.3); Red Blood Count 2.57 M/uL (4.7-6.1); White Blood Count 17.77 K/uL (4.8-10.8)
[2020-10-04 14:00] LABS: iSTAT Creatinine 2.6 mg/dl (0.6-1.3); iSTAT Hemoglobin 8.8 g/dl (14.0-18.0); iSTAT Ionized Calcium 0.76 mmol/l (1.12-1.32)
[2020-10-04 14:14] LABS: Basophils # (auto) 0.03 K/uL (0-0.2); Basophils % (auto) 0.2 %; Echinocytes 1+; Immature Granulocytes # (auto) 0.06 K/uL (0.00-0.02); Immature Granulocytes % (auto) 0.3 %; Lymphocytes # (auto) 1.32 K/uL (1.2-3.4); Lymphocytes % (auto) 7.4 %; Monocytes # (auto) 1.49 K/uL (0.11-0.59); Monocytes % (auto) 8.4 %; Neutrophils # (auto) 14.87 K/uL (1.4-6.5); Neutrophils % (auto) 83.7 %
[2020-10-04 14:16] LABS: Alanine Aminotransferase 56 U/L (12-78); Albumin Level 1.7 gm/dl (3.4-5.0); Aspartate Aminotransferase 448 U/L (15-37); Blood Urea Nitrogen 5 mg/dl (7-18); Calcium 7.3 mg/dl (8.5-10.1); Carbon Dioxide 11 mmol/L (21-32); Chloride 95 mmol/L (98-107); Creatinine Clr Calc Pharmacy 78.6 ml/min; Est GFR (African American) 55.6 ml/min; Glucose 118 mg/dl (70-99); Lipase 199 U/L (73-393); Magnesium 1.7 mg/dl (1.8-2.4); Potassium 3.1 mmol/L (3.5-5.1); Sodium 134 mmol/L (136-145)
[2020-10-04 14:19] LABS: Albumin Globulin Ratio 0.5 (0.9-2); Alkaline Phosphatase 276 U/L (45-117); Bilirubin Direct 7.2 mg/dl (0-0.2); Bilirubin,Total 8.6 mg/dl (0.2-1); Globulin 3.1 gm/dl (2.5-4.0); Total Protein 4.8 gm/dl (6.4-8.2); Troponin I < 0.015 ng/ml (0-0.045)
[2020-10-04 14:21] LABS: INR 2.1 (0.9-1.1); Partial Thromboplastin Ratio 1.8; Prothrombin Time 20.3 Seconds (9.0-12.0)
[2020-10-04 14:22] LABS: Partial Thromboplastin Time 48.6 Seconds (21.0-31.0)
[2020-10-04] MEDS ORDERED: cefTRIAXone SODIUM 2,000 MG/70 ML BAG IV STA (15:05)
[2020-10-04] MEDS ORDERED: PANTOprazole 80 MG in DEXTROSE 5% 100 ML IV STA (15:07)
--- NOTE | 2020-10-04 15:16 | XRay Report ---
XR chest 1V portable CLINICAL HISTORY: tachycardia, syncope, gi bleed COMPARISON STUDY: 07/27/2020 FINDINGS: The cardiac and mediastinal contours are normal. There is no focal pulmonary consolidation. There is no failure. There is no focal pulmonary consolidation. There is borderline elevation right hemidiaphragm. There is a right internal jugular central venous catheter. The tip projects over the r ight atrium. There is no pneumothorax.[ IMPRESSION: No active disease in the chest. ACT 112: Negative or not required by law. Electronically signed by: Fausto Ellington M.D. 10/04/2020 3:15 PM
[2020-10-04] MEDS: PANTOprazole 40 MG in DEXTROSE 5% 100 ML IV SCH ×2 (15:40→20:55)
[2020-10-04] MEDS ORDERED: LORazepam 2 MG/ML VIAL (IM USE) ONE (16:17)
[2020-10-04] MEDS ORDERED: SODIUM CHLORIDE 0.9% 1000ML 1,000 ML IV SCH (16:30)
--- NOTE | 2020-10-04 16:56 | Critical Care Consultation ---
Date of Consultation October 04, 2020 Assessment & Plan (1) Alcoholic hepatitis: Reason Critically Ill: 35-year-old male with alcoholic hepatitis and multisystem organ failure PLAN: Neuro: Alcohol dependency -Starting oral phenobarbital at this time -64.8 3 times daily x1 day then 32.4 twice daily x3 days -RASS score every 4 64 mg IV phenobarbital as needed for acute withdraw Resp: Tachypnea -In response to high gap metabolic acidosis CV: Hypotension: Improved -Secondary to volume depletion: Dehydration acute blood loss anemia -As blood pressure has improved will hold vasoactive medication for the 10mmHg systolic blood pressure increase and treat with midodrine and octreotide at this time Fluids/Renal: Mild hyponatremia Mild hypokalemia Mild hypochloremia Mild hypomagnesemia -4 g magnesium sulfate High gap metabolic acidosis: Lactic acid acidosis -Aggressive thiamine supplementation -500 mg 3 times daily x1 day then 300 mg 3 times daily by mouth for 5 days Acute kidney injury -Concern for possible hepatorenal syndrome -Volume expansion with albumin -Albumin: 100 g daily x2 days -Octreotide and midodrine given improvement in systemic blood pressure ID: Empiric coverage with Rocephin for possible variceal bleeding GI/Nutrition: Alcoholic hepatitis -Discriminant function 47, meld score 28, Glascow hepatitis score 9 meets criteria for steroids -Steroids contraindicated given gastric bypass and current rectal bleeding will preferentially tx with -Pentoxifylline 400 mg 3 times daily creatinine clearance still greater than 50 Bright red blood per rectum -GI following probable scope tomorrow if able to correct metabolic abnormalities Heme: Acute blood loss anemia Supratherapeutic INR -10 mg IV vitamin K -FFP on hold: 4 units DVT prophylaxis: SCDs, chemical prophylaxis contraindicated given acute blood loss anemia Endocrine: ICU hyperglycemia protocol Vascular access: Right internal jugular triple-lumen catheter placed in emergency department Code Status: Full code Disposition: ICU (2) Acute GI bleeding: (3) History of gastric bypass: (4) Tachycardia: (5) Jaundice: (6) Alcohol use disorder: (7) Acute blood loss anemia (ABLA): (8) Acute alcohol intoxication: (9) Elevated INR: (10) Lactic acid acidosis: Supervising Physician Co-Signing Physician Notes I have personally spent 85 minutes of critical care time in the direct management of this patient. This is a life/limb threatening event. This includes time spent evaluating patient, direct bedside care, chart review, placing orders, interpretation of diagnostic studies, discussion with consultants, patient, and/or family members regarding treatment decisions, as well as other required patient management activities. This time is exclusive of all separately billable procedures, and teaching time and separate from and in addition to any other critical care service time. History of Present Illness Reason for Consultation: Multisystem organ failure Requesting Physician: Dylan Pinzon Attending Physician: Lena Shah History of Present Illness Patient is a 35-year-old male with a significant past medical history for alcohol abuse with history of gastric bypass who presents today with 1 day history of acute bright red blood per rectum. Is also noted that he has recently been drinking 1 L of whiskey daily for approximately 2 weeks. He has a history of alcohol dependency as well as withdrawal from alcohol previously. He is being admitted for acute blood loss anemia lactic acid acidosis and alcoholic hepatitis. Allergies Allergy/AdvReac Type Severity Reaction Status Date / Time Penicillins Allergy Unknown Unknown Verified 10/04/20 15:49 Sulfa (Sulfonamide Allergy Unknown Unknown Verified 10/04/20 15:49 Antibiotics) sulfamethoxazole Allergy Unknown Unknown Verified 10/04/20 15:49 Home Medications Medication Instructions Recorded Confirmed Type multivitamin [Multiple Vitamins] 1 tab PO DAILY 07/09/20 10/04/20 History hydroxyzine HCl 25 mg PO Q8 PRN #90 tab 07/14/20 10/04/20 Rx calcium citrate [Calcitrate] 200 mg PO DAILY 10/04/20 10/04/20 History Patient History Medical History Alcohol use disorder Alcoholism HLD (hyperlipidemia) HTN (hypertension) Tobacco use Surgical History H/O gastric bypass Family History Other Heart disease Social History Smoking Status: Current some day smoker Tobacco Type: Cigarettes Second Hand Exposure: No; Hx Alcohol Use: Yes Alcohol type: hard liquor Hx Substance Use: No Preferred Language: Kinyarwanda Communication Ability: Effective 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 Ill-appearing. Skin: Pale, scleral icterus, Head: Atraumatic Ears, nose, mouth and throat: airway patent Cardiovascular: Normal peripheral perfusion Respiratory: no respiratory distress, moderate tachypnea Gastrointestinal: Non distended, nontender nondistended Musculoskeletal: No deformity, trace edema Results & Data Results & Data ([facility]) Vital Signs (Past 12 Hours) Vital Signs Temp Pulse Pulse Resp BP BP Pulse Ox 10/04/20 16:16 108 H 35 H 133/72 100 10/04/20 16:01 109 H 40 H 116/55 L 100 10/04/20 16:00 109 H 40 H 116/55 L 100 10/04/20 15:52 105 H 33 H 106/54 L 100 10/04/20 15:46 105 H 33 H 106/54 L 100 10/04/20 15:30 106 H 44 H 106/45 L 100 10/04/20 15:16 110 H 31 H 92/53 L 100 10/04/20 15:15 36.6 C 105 H 24 92/53 L 100 10/04/20 15:01 112 H 32 H 93/37 L 100 10/04/20 15:00 36.5 C 112 H 36 H 93/36 L 100 10/04/20 14:54 119 H 23 112/46 L 100 10/04/20 13:46 104 H 38 H 93/72 L 10/04/20 13:34 104 H 33 H 102/52 L 100 10/04/20 13:21 105 H 24 100 10/04/20 13:15 110 H 33 H 84/72 L 100 10/04/20 13:09 99 H 25 H 96/57 L 100 10/04/20 13:05 36.9 C 105 H 105 H 24 91/60 L 91/60 L 100 10/04/20 13:04 104 H 30 H 91/60 L 100 Coding Level of Care Code Critical Care ea addt'l 30 min Diagnoses Alcoholic hepatitis K70.10 Ascites presence: unspecified Acute GI bleeding K92.2 History of gastric bypass Z98.84 Tachycardia R00.0 Jaundice R17 Alcohol use disorder Acute blood loss anemia (ABLA) D62 Acute alcohol intoxication F10.920 Complication of substance-induced condition: uncomplicated Elevated INR R79.1 Lactic acid acidosis E87.2 (1) Alcoholic hepatitis Ascites presence: unspecified Qualified Code(s): K70.10 - Alcoholic hepatitis without ascites (2) Acute alcohol intoxication Complication of substance-induced condition: uncomplicated Qualified Code(s): F10.920 - Alcohol use, unspecified with intoxication, uncomplicated
--- NOTE | 2020-10-04 17:02 | History & Physical Report ---
Date of Service October 04, 2020 Assessment & Plan (1) Hypovolemic shock: Secondary to acute GI bleeding. Resuscitation efforts are underway in the ED ER with 1 unit of blood given and 1 L normal saline in. Continue ICU level care and resuscitation efforts. (2) Acute GI bleeding: Gastroenterology consulted for management of acute liver failure and acute GI bleeding including recommendations on need for scope. CT scan with ? colitis. Continue Protonix drip, start octreotide drip, trend H&H, transfuse blood and fluids as needed to support hemodynamics. Vasopressors as needed to support hemodynamics. Rocephin given empirically in setting of GI bleed. (3) Acute liver failure: INR 2.1, albumin 1.7, total bilirubin 8.6 all point to acute liver failure secondary to heavy alcohol use in the context of alcoholic hepatitis. Strict alcohol cessation recommended indefinitely. Defer medical management to GI and ICU. The decision was made to keep the patient at this facility which is a nontransplant facility at this time. We will continue to weigh the need for transfer as clinical condition evolves. Continue supportive care efforts. (4) Acute blood loss anemia (ABLA): Hemodynamic instability suggests greater than 20% blood volume loss despite normal H&H at this time. He is already received 1 unit of blood with an additional unit on hold. Trend H&H closely and continue hemodynamic support as above. (5) Alcoholic hepatitis: He was recently hospitalized for this and did receive a course of steroids. Steroids would be contraindicated in setting of acute GI bleeding. Defer medical therapy decision to GI provider. (6) Acute alcohol intoxication: supportive care, monitor closely for withdrawal. Inpatient alcohol rehabilitation strongly recommended at discharge. (7) Electrolyte abnormality: Replace and correct electrolytes including magnesium, potassium and calcium. Monitor these and phosphorus. Defer to hand lacer for management. (8) Lactic acid acidosis: Severe with lactate of 17. Continue resuscitation efforts and trend lactate. (9) Tobacco use disorder: Tobacco cessation strongly recommended. (10) Acute renal failure: Secondary to hypovolemic shock, daily BMP after resuscitation. (11) Major depressive disorder: Depression Per records, per my screening patient denies any suicidal intentions. (12) Obesity: Status post gastric bypass. Lifestyle modifications recommended. (13) History of gastric bypass: (14) DVT prophylaxis: SCDs Full code Disposition-to ICU. I discussed the case with the patient's mom who was at bedside. I also discussed the case with the hand lacer on-call, [facility] History of Present Illness Chief Complaint: Bleeding per rectum Primary Care Provider: DAYSI Torres The patient is a critically ill 35-year-old alcoholic man who presented to the ER reporting bright red blood per rectum with diarrhea that began overnight. He reports having relapsed with his alcoholism and drank a full fifth of whiskey until approximately 1:00 this morning. He subsequently began having diarrhea and blood prompting him to call his mother who came over and found him confused. The patient does not remember the majority of the morning. An ambulance brought him in. In the ER he reports shortness of breath and has conversational dyspnea. He is wearing supplemental oxygen. At baseline he reports being able to climb a couple flights of stairs without any issue and has no shortness of breath. He does report shortness of breath developing over the last week. He reports also losing his job recently, a major stressor. He reports having a significant amount of stress related to the COVID-19 pandemic. He has suffered from alcoholism for several years. He denies use of any other drugs and is an occasional smoker. He reports approximately 2 cigarettes a day on average. He reports very poor nutrition not eating or drinking well in general. At this time he denies any pain or chest pain including no abdominal pain. He does not remember vomiting and has never had a history of GI bleed. He does have a history of gastric bypass. He denies any use of [id number]-avocfdp herbal supplements such as turmeric or vitamin E, aspirin, NSAIDs or other blood thinner use. He does not take medications regularly per his report. Mom is at the bedside. This patient was recently hospitalized for alcoholic hepatitis in July 2020 and received steroids at that time. Allergies Allergy/AdvReac Type Severity Reaction Status Date / Time Penicillins Allergy Unknown Unknown Verified 10/04/20 15:49 Sulfa (Sulfonamide Allergy Unknown Unknown Verified 10/04/20 15:49 Antibiotics) sulfamethoxazole Allergy Unknown Unknown Verified 10/04/20 15:49 Home Medications Medication Instructions Recorded Confirmed Type multivitamin [Multiple Vitamins] 1 tab PO DAILY 07/09/20 10/04/20 History hydroxyzine HCl 25 mg PO Q8 PRN #90 tab 07/14/20 10/04/20 Rx calcium citrate [Calcitrate] 200 mg PO DAILY 10/04/20 10/04/20 History Past Med/Surg History Medical History Alcohol use disorder Alcoholism Allergic rhinitis HLD (hyperlipidemia) HTN (hypertension) Major depressive disorder Obesity Tobacco use Tobacco use disorder Surgical History H/O gastric bypass Family History Other Heart disease Social History Smoking Status: Current some day smoker Tobacco Type: Cigarettes Second Hand Exposure: No; Hx Alcohol Use: Yes Alcohol type: hard liquor Hx Substance Use: No Preferred Language: French Communication Ability: Effective Global [employer] Required: No Beliefs That Will Affect Care: None Current Living Situation: Family Feels Safe at Home: Yes Assistive Devices: None Review of Systems Review of Systems: All systems reviewed & are unremarkable except as noted in HPI & below Physical Exam Physical Exam: CONSTITUTIONAL: obese, vitals as above, generally ill- appearing, winded, alopecia EYES: pupils were round and equal bilaterally, yellowish hue to skin around eyes and generally, normal conjunctivae, no scleral icterus ENT: external ear and nose normal, mucous membranes are dry. NECK: trachea midline RESPIRATORY: clear to auscultation bilaterally, no crackles, rales or wheezes, normal respiratory effort, some conversational dyspnea noted CARDIOVASCULAR: tachy rate and regular rhythm, S1 and 2 heard without murmurs, gallops or rubs, no JVD, no peripheral edema CHEST: inspection of chest was normal GASTROINTESTINAL: soft, protuberant, nontender, nondistended MUSCULOSKELETAL: strength 5/5 throughout, head is normocephalic and atraumatic SKIN: warm and dry, jaundice NEUROLOGIC: Touch, pain and proprioception normal. CN 2-12 grossly intact, no sensory deficit, normal cognition, normal speech, no tremor PSYCHIATRIC: alert cooperative and oriented to person, place and time. Results & Data Results & Data ([facility]) Vital Signs (Past 12 Hours) Vital Signs Temp Pulse Pulse Resp BP BP Pulse Ox 10/04/20 16:16 108 H 35 H 133/72 100 10/04/20 16:01 109 H 40 H 116/55 L 100 10/04/20 16:00 109 H 40 H 116/55 L 100 10/04/20 15:52 105 H 33 H 106/54 L 100 10/04/20 15:46 105 H 33 H 106/54 L 100 10/04/20 15:30 106 H 44 H 106/45 L 100 10/04/20 15:16 110 H 31 H 92/53 L 100 10/04/20 15:15 36.6 C 105 H 24 92/53 L 100 10/04/20 15:01 112 H 32 H 93/37 L 100 10/04/20 15:00 36.5 C 112 H 36 H 93/36 L 100 10/04/20 14:54 119 H 23 112/46 L 100 10/04/20 13:46 104 H 38 H 93/72 L 10/04/20 13:34 104 H 33 H 102/52 L 100 10/04/20 13:21 105 H 24 100 10/04/20 13:15 110 H 33 H 84/72 L 100 10/04/20 13:09 99 H 25 H 96/57 L 100 10/04/20 13:05 36.9 C 105 H 105 H 24 91/60 L 91/60 L 100 10/04/20 13:04 104 H 30 H 91/60 L 100 Laboratory Results Short CBC 10/04/20 Range/Units 13:46 WBC 17.77 H (4.8-10.8) K/uL Hgb 8.8 L (14.0-18.0) g/dL Hct 25.5 L (42-52) % Plt Count 155 (130-400) K/uL BMP 10/04/20 13:46 Sodium 134 L Potassium 3.1 L Chloride 95 L Carbon Dioxide 11 L BUN 5 L Creatinine 1.78 H Glucose 118 H Calcium 7.3 L Cardiac Enzymes 10/04/20 Range/Units 13:46 Troponin I < 0.015 (0-0.045) ng/ml Liver Function 10/04/20 Range/Units 13:46 Total Bilirubin 8.6 H (0.2-1) mg/dl Direct Bilirubin 7.2 H (0-0.2) mg/dl AST 448 H (15-37) U/L ALT 56 (12-78) U/L Alkaline Phosphatase 276 H (45-117) U/L Albumin 1.7 L (3.4-5.0) gm/dl Diagnostic Findings CT OF THE ABDOMEN AND PELVIS WITH CONTRAST CLINICAL HISTORY: GI bleed. COMPARISON STUDY: Right upper quadrant ultrasound July 10, 2020. MRI of the abdomen July 12, 2020. TECHNIQUE: Following IV administration of 93 mL of Optiray, axial images of the abdomen and pelvis were obtained from the lung bases to the proximal femurs. Images were reviewed in the axial, sagittal, and coronal planes. IV contrast was administered without complication. Automated exposure control was utilized for the study. A dose lowering technique was utilized adhering to the principles o f ALARA. CT DOSE: 1863.84 mGy.cm FINDINGS: Several tiny right middle lobe pulmonary nodules are likely benign. There are postoperative findings consistent with Honorio-en-Y gastric bypass. There is no evidence for a bowel obstruction. The appendix is normal. There is mild wall thickening of the ascending colon. There is trace adjacent ascites. Marked hepatic steatosis and moderate hepatomegaly is noted. Gallbladder wall thickening is a nonspecific finding. There is no biliary or pancreatic ductal dilatation. No hepatic lesions are identified. The spleen, adrenal glands, kidneys and pancreas are unremarkable. No peripancreatic infiltration. There is no hydronephrosis. There may be tiny varices within the left paracolic gutter. A Silverio balloon within the bladder is noted. No acute fracture or suspicious lesion is identified within visualized skeletal structures. Major vasculature is patent. The main, left and right portal veins are patent. IMPRESSION: 1. Marked hepatic steatosis and moderate hepatomegaly. Trace ascites. Possible small collaterals. 2. Moderate gallbladder wall thickening, a nonspecific finding. 3. Mild wall thickening of the ascending colon. This is nonspecific in the setting of liver disease although could reflect a colitis. No bowel obstruction. Normal appendix. 4. Status post Honorio-en-Y gastric bypass. No bowel obstruction. XR chest 1V portable CLINICAL HISTORY: tachycardia, syncope, gi bleed COMPARISON STUDY: 07/27/2020 FINDINGS: The cardiac and mediastinal contours are normal. There is no focal pulmonary consolidation. There is no failure. There is no focal pulmonary consolidation. There is borderline elevation right hemidiaphragm. There is a right internal jugular central venous catheter. The tip projects over the right atrium. There is no pneumothorax.[ IMPRESSION: No active disease in the chest. Medications Administered Rocephin 2gm IV 1 unit O neg blood 1 L NSS Protonix bolus and drip Code Status & VTE Plan VTE Prophylaxis Plan VTE Prophylaxis will be ordered: Yes (1) Acute alcohol intoxication Complication of substance-induced condition: uncomplicated Qualified Code(s): F10.920 - Alcohol use, unspecified with intoxication, uncomplicated
[2020-10-04] MEDS ORDERED: PHENobarbital sodium 130 MG/ML VIAL IV PRN (17:18)
[2020-10-04] MEDS ORDERED: OPTIRAY 320 100ml IV ONE (17:18)
[2020-10-04] MEDS ORDERED: STAT IV Infusion **Titration per Protocol STA ×2 (17:39→23:27)
--- NOTE | 2020-10-04 17:42 | CT Scan Report ---
CT OF THE ABDOMEN AND PELVIS WITH CONTRAST CLINICAL HISTORY: GI bleed. COMPARISON STUDY: Right upper quadrant ultrasound July 10, 2020. MRI of the abdomen July 12, 2020. TECHNIQUE: Following IV administration of 93 mL of Optiray, axial images of the abdomen and pelvis we re obtained from the lung bases to the proximal femurs. Images were reviewed in the axial, sagittal, and coronal planes. IV contrast was administered without complication. Automated exposure control wa s utilized for the study. A dose lowering technique was utilized adhering to the principles of ALARA . CT DOSE: 1863.84 mGy.cm FINDINGS: Several tiny right middle lobe pulmonary nodules are likely benign. There are postoperative findings consistent with Honorio-en-Y gastric bypass. There is no evidence for a bowel obstruction. The appendix is normal. There is mild wall thickening of the ascending colon. There is trace adjacent as cites. Marked hepatic steatosis and moderate hepatomegaly is noted. Gallbladder wall thickening is a nonspecific finding. There is no biliary or pancreatic ductal dilatation. No hepatic lesions are iden tified. The spleen, adrenal glands, kidneys and pancreas are unremarkable. No peripancreatic infiltra tion. There is no hydronephrosis. There may be tiny varices within the left paracolic gutter. A Silverio balloon within the bladder is noted. No acute fracture or suspicious lesion is identified within vis ualized skeletal structures. Major vasculature is patent. The main, left and right portal veins are p atent. IMPRESSION: 1. Marked hepatic steatosis and moderate hepatomegaly. Trace ascites. Possible small collaterals. 2. Moderate gallbladder wall thickening, a nonspecific finding. 3. Mild wall thickening of the ascending colon. This is nonspecific in the setting of liver disease a lthough could reflect a colitis. No bowel obstruction. Normal appendix. 4. Status post Honorio-en-Y gastric bypass. No bowel obstruction. ACT 112: Negative or not required by law. Electronically signed by: Edmar Montero M.D. 10/04/2020 5:40 PM
[2020-10-04] MEDS ORDERED: NORMOSOL-R 1,000 ML IV SCH (17:59)
[2020-10-04] MEDS ORDERED: ALBUMIN 25% 12.5 GM/50 ML VIAL IV SCH (17:59)
[2020-10-04] MEDS ORDERED: ICU PROTOCOL FOR HYPERGLYCEMIA PRN (17:59)
[2020-10-04] MEDS: MAGNESIUM SULFATE / D5W 1 GM/100 ML BAG IV SCH (18:07)
[2020-10-04] MEDS: OCTREOTIDE ACETATE 500 MCG in 0.9 % SODIUM CHLORIDE 100 ML IV SCH (18:07)
[2020-10-04] MEDS ORDERED: PHYTONADIONE 10 MG in SODIUM CHLORIDE 0.9% 50 ML IV ONE (18:15)
[2020-10-04 18:24] LABS: Hematocrit (blood only) 24.8 % (42-52); Hemoglobin 8.4 g/dL (14.0-18.0)
--- NOTE | 2020-10-04 19:13 | Emergency Department Note ---
ED Visit Note I have personally evaluated this patient examined him and reviewed the pertinent labs and data. I have discussed the case with Mauricio Alcantar, the physician museum assistant and agree with the plan. Please refer to the VANESSA note. This patient was initially seen by Mauricio Hadley PA-C. He promptly told me about the patient immediately after he saw him. The patient was having a copious amount of lower GI bleeding since last night he had bright bright red blood and diarrhea started drinking recently again after having a history of alcoholism. Mauricio was worried that he looked pale and his blood pressure was low, so I immediately went and saw him. We had an 18-gauge his left arm and we are getting blood work and called IV team to get a second. His blood pressure did come up with some IV fluids initially they were not able to get his second line and his pressure dropped so I felt that we need to do a central line to get access. He is moved to room A1. I talked to the patient and his mother at length and they verbally consented. A right IJ was placed with ultrasound guidance without difficulties or complications. The patient had been typed and crossed for 4 units we did start 2 units here after placing the central line, we got critical values call back for a lactic acid of 17. In light of this we added antibiotics. Also consulted Dr. Wilson, from the ICU who came and saw the patient in the ED as well. I think the lactate is most likely from the blood loss but infection would also be a possibility. The patient looks better after receiving IV fluids and blood products but is still critically ill with a high lactate and GI bleed. He was also started on IV Protonix. We additionally repleted his electrolytes. [facility] was also [facility]. He would be admitted to the ICU. Critical care notetotal time 120 minutes Due to the patient's hypotension, unstable vital signs, GI bleed, need for multiple IV medications, consultations frequent reassessment and evaluation, I have personally spent greater than 120 minutes of critical care time in the direct management of this patient. This includes bedside care, interpretation of diagnostic studies, and testing, discussion with consultants, patient, and family members, and other required patient management activities. This 120 minutes is in excess of all separately billable procedures. Procedure note -Central Venous [id number] Indication: Hypotension, GI bleed, need for IV access Catheter type: Triple-lumen Location: Right IJ Verbal consent was obtained after the risks and benefits were explained, including but not limited to pneumothorax, hemothorax, vessel injury, bleeding, scarring, infection, pain, and bone/joint/nerve damage. At this time, the risks of the procedure are less than the risks of NOT performing the procedure. A time out was taken and the correct patient and site identified. The patient was placed in the [place] position and the skin was prepped in the standard fashion with chlorhexidine and full sterile drapes applied. The proper landmarks were identified with ultrasound, anesthetized with 1% lidocaine without epinephrine, and the needle was inserted through the skin in the standard fashion. The needle was carefully advanced into blood vessel lumen under ultrasound guidance. The guidewire was placed uneventfully. The vessel is dilated and the catheter was placed. It was sutured into position. There was good blood return from all ports. The patient tolerated the procedure well and there were no complications. Post procedure x-ray was normal. .
[2020-10-04] MEDS: NOREPINEPHRINE/D5W 8 MG/508 ML BAG IV SCH (19:27)
[2020-10-04] MEDS ORDERED: SODIUM CHLORIDE 0.9% 1000ML 1,000 ML IV ONE (19:51)
[2020-10-04 20:14] LABS: Hematocrit (blood only) 25.5 % (42-52); Hemoglobin 8.7 g/dL (14.0-18.0); Mean Corpuscular Hemoglobin 33.6 pg (25-34); Mean Corpuscular Volume 98.5 fL (80-100); Mean Platelet Volume 10.8 fL (7.4-10.4); Platelet Count 157 K/uL (130-400); RDW Coefficient of Variation 16.4 % (11.5-14.5); RDW Standard Deviation 58.4 fL (36.4-46.3); Red Blood Count 2.59 M/uL (4.7-6.1); White Blood Count 24.82 K/uL (4.8-10.8)
[2020-10-04 20:29] LABS: Base Excess VBG -17.1 mEq/L; Oxygen Saturation VBG 78.5 %; pH VBG 7.27 (7.36-7.41)
[2020-10-04] MEDS ORDERED: CALCIUM GLUCONATE 10% 2,000 MG in SODIUM CHLORIDE 0.9% 50 ML IV ONE (20:31)
[2020-10-04 20:37] LABS: Mean Corpuscular Hgb Conc 34.1 g/dL (32-36)
[2020-10-04 20:45] LABS: BUN Creatinine Ratio 2.9 (10-20); Creatinine Clr Calc Pharmacy 61.9 ml/min; Est GFR (African American) 41.2 ml/min; Est GFR (Non-African American) 35.6 ml/min; Magnesium 1.7 mg/dl (1.8-2.4)
[2020-10-04 20:46] LABS: Potassium 3.8 mmol/L (3.5-5.1)
[2020-10-04 20:52] LABS: INR 2.4 (0.9-1.1); Prothrombin Time 23.1 Seconds (9.0-12.0)
[2020-10-04] MEDS ORDERED: PENTOXIFYLLINE 400MG EXT REL TAB PO SCH (21:00)
[2020-10-04] MEDS ORDERED: THIAMINE HCL 100 MG TAB PO SCH (21:00)
[2020-10-04] MEDS ORDERED: THIAMINE HCL 500 MG in SYRINGE 9 ML IV SCH (21:00)
[2020-10-04] MEDS ORDERED: THIAMINE HCL 500 MG in 0.9 % SODIUM CHLORIDE 100 ML IV SCH (21:00)
[2020-10-04] MEDS ORDERED: MAGNESIUM SULFATE / D5W 1 GM/100 ML BAG IV STA (21:09)
--- NOTE | 2020-10-04 21:17 | Communication Note ---
Date of Service: October 04, 2020 This evening patient suddenly became hypotensive and tachycardic and continued to pass melena. He was transfused with additional unit RBCs and 2 FFP. I did speak with Dr. Lowe with gastroenterology, and patient is to undergo emergent endoscopy where he was found to have bleeding from duodenal ulcer near the bypass anastomosis which was injected with epinephrine. Per GI bleeding seems to be stopped for now but he will need transfer to tertiary center for bariatric surgery. On arrival back to the ICU the patient has continued to decompensate and has developed severe metabolic acidosis with pH 6.9, currently on multiple vasopressors, and mechanically ventilated. His platelet count is now 6 as well and he is being transfused with 2 units, which apparently is the entire hospital supply of platelets and additional 2 FFP as his INR remains elevated. Hemoglobin stable for now. He appears to be going into acute renal failure as well. He also had an episode of A. fib RVR and required synchronized cardioversion. He is currently back in R. I spoke with transfer center at [facility] who connected me to supervising appraiser and I did speak with supervising appraiser Dr. Oconnor who has accepted the patient for transfer for potential CRRT and higher level of care. He will also need services including bariatric surgery which we do not provide here and will also likely need additional platelet transfusions. At this time we are waiting on a bed and transport. We will continue with medical management to try and stabilize the patient for charley campbell. Prognosis remains poor. I have updated the patient's mother who is his primary contact as well, and she is agreeable to transfer to tertiary center. CRITICAL CARE TIME - I have personally spent 95 minutes of critical care time in the direct management of this patient. This is a life/limb threatening event. This includes time spent evaluating patient, direct bedside care, chart review, placing orders, interpretation of diagnostic studies, discussion with consultants, patient, and family members, as well as other required patient management activities. This time is exclusive of all separately billable procedures, and teaching time and separate from and in addition to any other critical care service time. Coding Level of Care Code Critical Care ea addt'l 30 min
[2020-10-04] MEDS ORDERED: STAT IV STA (21:19)
[2020-10-04] MEDS ORDERED: POTASSIUM CHLORIDE / WTR 20 MEQ/100 ML PLCT IV ONE (21:20)
[2020-10-04] MEDS ORDERED: SODIUM BICARB 8.4% INJ 50 MEQ/50 ML SYR IV STA (21:24)
[2020-10-04] MEDS ORDERED: SODIUM BICARBONATE 8.4% 150 MEQ in DEXTROSE 5% 1,000 ML IV SCH (21:45)
--- NOTE | 2020-10-04 21:56 | Gastrointestinal Consultation ---
Date of Consultation October 04, 2020 Assessment & Plan (1) Alcoholic hepatitis: (2) Acute blood loss anemia (ABLA): (3) BRBPR (bright red blood per rectum): suspect bleeding ulcer or varices. brisk bleeding given hemodynamics. Recs: NPO protonix and octreotide drips EGD now to further evaluate agree with 2 units FFP and another unit of PRBC transfusion supportive care strict alcohol cessation Thank you for allowing me to participate in the care of this patient History of Present Illness Attending Physician: Dylan Wilson, DO 35 yo male with hx ETOH hepatitis here with hematochezia and diarrhea. He was hospitalized with ETOH hepatitis in July 2020 and treated with steroids then. Had quit alcohol but then relapsed 2 weeks ago and has been drinking daily, last drink was last night at 1 am [employer]. He also has a hx gastric bypass and ulcers after the bypass which was done 15 years ago. He is currently tachycardic and tachypneic, on levophed. Denies any NSAID use. labs reviewed, INR elevated 2.4, hgb 8.7 from baseline 14 in June 2020. Normal platelets. He has received 1 unit PRBC and getting another, also getting 2 units FFP. Allergies Allergy/AdvReac Type Severity Reaction Status Date / Time Penicillins Allergy Unknown Unknown Verified 10/04/20 15:49 Sulfa (Sulfonamide Allergy Unknown Unknown Verified 10/04/20 15:49 Antibiotics) sulfamethoxazole Allergy Unknown Unknown Verified 10/04/20 15:49 Home Medications Medication Instructions Recorded Confirmed Type multivitamin [Multiple Vitamins] 1 tab PO DAILY 07/09/20 10/04/20 History hydroxyzine HCl 25 mg PO Q8 PRN #90 tab 07/14/20 10/04/20 Rx calcium citrate [Calcitrate] 200 mg PO DAILY 10/04/20 10/04/20 History Patient History Medical History Alcohol use disorder Alcoholism Allergic rhinitis HLD (hyperlipidemia) HTN (hypertension) Major depressive disorder Obesity Tobacco use Tobacco use disorder Surgical History H/O gastric bypass Family History Other Heart disease Social History Smoking Status: Never smoker Tobacco Type: Cigarettes Second Hand Exposure: No; Hx Alcohol Use: Yes Alcohol type: hard liquor Hx Substance Use: No Preferred Language: Serbian Communication Ability: Effective Casino Gaming Inspector Required: No Beliefs That Will Affect Care: None Current Living Situation: Alone Feels Safe at Home: Yes Assistive Devices: None Review of Systems Constitutional: no fever, no chills and no weight loss Eyes: as per Subjective / HPI Ear, Nose, Mouth, Throat: as per Subjective / HPI Respiratory: no dyspnea and no dyspnea on exertion Cardiovascular: no chest pain and no palpitations Gastrointestinal: as per Subjective / HPI Musculoskeletal: no joint pain and no swelling Integumentary: no rash and no lesions Neurologic: no numbness and no paresthesia Psychiatric: no depression and no anxiety Endocrine: no fatigue Hematologic / Lymphatic: no easy bleeding and no easy bruising Physical Exam Constitutional: WD/WN, vitals as above Eyes: EOM intact bilaterally Neck: normal visual inspection Respiratory: + tachypneic Auscultation: lungs clear to auscultation bilaterally Cardiovascular: Rate/Rhythm: + tachycardic Heart Sounds: no murmur Extremities: no edema Gastrointestinal (Abdomen): Inspection/Auscultation: abdomen normal to ins pection; abdomen not distended Percussion/Palpation: abdomen soft; abdomen nontender and no hepatosplenomegaly Musculoskeletal: Extremities: no cyanosis Gait: normal gait Skin: no rashes, warm and dry Neurologic: moves all extremities Psychiatric: A+Ox3, euthymic affect Results & Data ([facility]) Vital Signs (Past 12 Hours) Vital Signs Temp Pulse Pulse Resp BP BP Pulse Ox 10/04/20 21:23 36.7 C 129 H 21 108/56 L 98 10/04/20 21:01 36.4 C L 133 H 17 108/56 L 100 10/04/20 20:51 36.4 C L 122 H 23 99/42 L 100 10/04/20 20:38 100 10/04/20 20:30 120 H 24 107/55 L 100 10/04/20 20:28 119 H 24 87/56 L 100 10/04/20 20:25 118 H 29 H 66/48 L 100 10/04/20 20:24 120 H 28 H 77/52 L 100 10/04/20 20:20 117 H 37 H 84 L 10/04/20 20:16 117 H 35 H 87/47 L 99 10/04/20 20:13 120 H 15 83/58 L 100 10/04/20 20:12 117 H 34 H 60/36 L 100 10/04/20 20:05 115 H 30 H 90/72 L 100 10/04/20 20:00 36.4 C L 112 H 24 102/82 100 10/04/20 19:50 111 H 31 H 102/60 100 10/04/20 19:48 111 H 41 H 98/44 L 98 10/04/20 19:46 112 H 21 60/40 L 100 10/04/20 19:42 111 H 17 90/42 L 100 10/04/20 19:37 113 H 32 H 75/30 L 100 10/04/20 19:34 117 H 36 H 56/35 L 98 10/04/20 19:30 119 H 36 H 63/21 L 100 10/04/20 19:16 118 H 36 H 78/44 L 10/04/20 19:04 121 H 33 H 84/57 L 100 10/04/20 19:00 120 H 42 H 70/42 L 100 10/04/20 18:57 125 H 42 H 82/40 L 100 10/04/20 18:39 114 H 38 H 100 10/04/20 18:38 114 H 33 H 67/42 L 100 10/04/20 18:30 115 H 37 H 100 10/04/20 18:00 120 H 36 H 100 10/04/20 17:40 35.9 C L 10/04/20 17:30 120 H 37 H 82/61 L 100 10/04/20 17:01 117 H 24 96/66 L 100 10/04/20 17:00 109 H 40 H 116/55 L 100 10/04/20 16:46 118 H 35 H 105/43 L 100 10/04/20 16:31 113 H 31 H 112/66 100 10/04/20 16:16 108 H 35 H 133/72 100 10/04/20 16:01 109 H 40 H 116/55 L 100 10/04/20 16:00 109 H 40 H 116/55 L 100 10/04/20 15:52 105 H 33 H 106/54 L 100 10/04/20 15:46 105 H 33 H 106/54 L 100 10/04/20 15:30 106 H 44 H 106/45 L 100 10/04/20 15:16 110 H 31 H 92/53 L 100 10/04/20 15:15 36.6 C 105 H 24 92/53 L 100 10/04/20 15:01 112 H 32 H 93/37 L 100 10/04/20 15:00 36.5 C 112 H 36 H 93/36 L 100 10/04/20 14:54 119 H 23 112/46 L 100 10/04/20 13:46 104 H 38 H 93/72 L 10/04/20 13:34 104 H 33 H 102/52 L 100 10/04/20 13:21 105 H 24 100 10/04/20 13:15 110 H 33 H 84/72 L 100 10/04/20 13:09 99 H 25 H 96/57 L 100 10/04/20 13:05 36.9 C 105 H 105 H 24 91/60 L 91/60 L 100 10/04/20 13:04 104 H 30 H 91/60 L 100 PG Care Time/CCT Total # of Minutes Spent Total Time Spent with Patient: Total time spent is greater than 50% in appraisal coordinator rdination of care (as documented) at patient's floor/unit and/or counseling patient: Coding Level of Care Code 89788 Inpt Consult Level 4 Diagnoses Alcoholic hepatitis K70.10 Acute blood loss anemia (ABLA) D62 BRBPR (bright red blood per rectum) K62.5
[2020-10-04] MEDS ORDERED: SUCCINYLCHOLINE CHLORIDE 20 MG/ML 10 ML VIAL IV ONE (22:35)
[2020-10-04] MEDS ORDERED: PROPOFOL IV EMULSION 10 MG/ML 20 ML VIAL IV ONE ×2 (22:35→23:13)
[2020-10-04] MEDS ORDERED: fentaNYL citrate 100 MCG/2 ML VIAL ONE ×2 (22:36→23:40)
--- NOTE | 2020-10-04 22:58 | Electrocardiogram Report ---
Test Reason : Blood Pressure : / mmHG Vent. Rate : 104 BPM Atrial Rate : 104 BPM P-R Int : 126 ms QRS Dur : 084 ms QT Int : 372 ms P-R-T Axes : 036 026 021 degrees QTc Int : 489 ms Sinus tachycardia Prolonged QT When compared with ECG of 09-JUL-2020 22:04, No significant change was found Confirmed by Winston Scott ([id number]) on 10/04/2020 10:57:55 PM Referred By: REFERRED SELF Confirmed By:Winston Scott
--- NOTE | 2020-10-04 23:21 | Procedure Note ---
Procedure Note Date of Service October 04, 2020 GI brief procedure note EGD findings: actively oozing large near completely obstructing ulcer at the gastric bypass anastomosis with clot formation as well. 6 cc of epinephrine injected and bipolar 7 Fr probe utilized for dual therapy succesfully with control of bleeding and hemostasis. Unable to advance scope through the lumen into the duodenum due to obstructive ulcer. No evidence of esophageal varices. Recs: NPO complete 72 hours of protonix drip, then protonix 40 mg BID thereafter for minimum of 3 months can d/c octreotide drip correct/reverse INR strongly recommend transfer to tertiary care center with bariatric surgery capabilities; he likely needs surgical intervention to correct this almost completely obstructing ulcer at the anastomosis supportive care rest as per primary team Ramses Lowe MD Gastroenterology Coding
[2020-10-04] MEDS ORDERED: PROPOFOL BOLUS FROM BAG IV PRN (23:27)
[2020-10-04] MEDS ORDERED: PROPOFOL IV EMULSION 10 MG/ML 100 ML VIAL IV ONE (23:28)
[2020-10-04] MEDS ORDERED: propofoL 1,000 MG/100 ML VIAL IV SCH (23:30)
--- NOTE | 2020-10-04 23:30 | GI REPORT ---
Patient Name: Parag Zamora Procedure Date: 10/04/2020 10:13 PM Date of : 1985 Admit Type: Inpatient Age: 35 Gender: Male Attending MD: Ramses Lowe MD Procedure: Upper GI endoscopy Providers: Ramses Lowe MD Referring MD: Referred Self Indications: Hematochezia Medicines: Monitored Anesthesia Care Complications: No immediate complications. Estimated blood loss: None. Estimated Blood Loss: Estimated blood loss: none. Procedure: Pre-Anesthesia Assessment: - Prior Anticoagulants: The patient has taken no previous anticoagulant or antiplatelet agents. - ASA Grade Assessment: IV - A patient with severe systemic disease that is a constant threat to life. After obtaining informed consent, the endoscope was passed under direct vision. Throughout the procedure, the patient's blood pressure, pulse, and oxygen saturations were monitored continuously. The Endoscope was introduced through the mouth, and advanced to the prepyloric region, stomach. The upper GI endoscopy was accomplished without difficulty. The patient tolerated the procedure well. Findings: The examined esophagus was normal. One oozing cratered, near completely obstructing and linear gastric ulcer with adherent clot was found at the anastomosis. The lesion was 10 mm in largest dimension. Area was successfully injected with 6 mL of a 1:10,000 solution of epinephrine for hemostasis. Coagulation for hemostasis using a 7 Fr bipolar probe was successful. Estimated blood loss: none. Unable to advance scope beyond the ulcer as it was almost completely obstructing at the anastomosis. Impression: - Normal esophagus. - Oozing gastric ulcer with adherent clot. Injected. Treated with bipolar cautery. - No specimens collected. Recommendation: - Return patient to ICU for ongoing care. - NPO. complete 72 hours of protonix drip, then protonix 40 mg BID thereafter for at least 3 months trend H/H, transfuse prn correct/reverse INR -strongly recommend transfer to tertiary care center with bariatric surgery capabilities; he likely needs surgical intervention to correct this almost completely obstructing ulcer at the anastomosis Ramses Lowe MD 10/04/2020 11:29:20 PM This report has been signed electronically. Note Initiated On: 10/04/2020 10:13 PM Number of Addenda: 0 I attest to the content of the Intraoperative Record and orders documented therein, exceptions below {[id number]}
[2020-10-04] MEDS ORDERED: MIDAZOLAM HCL 5 MG/ML 1 ML VIAL ONE (23:39)
--- NOTE | 2020-10-04 23:43 | Anesthesiology Consultation ---
Date of Service October 04, 2020 Assessment & Plan (1) Encounter for pre-operative examination: Chart Review Chart Review: Acceptable Risk for Surgery (high risk, emergent) and Patient NOT seen in Pre Admission Testing Consults Requested none ASA [id number] Proposed Anesthesia Anesthesia Type: General (plan for RSI. Plan to remain intubated post op.) Risk / Benefits Reviewed With: PT / POA / Parent / Guardian, Accepts Plan and Informed Consent Obtained History Surgery Operation Date: 10/04/20 22:05 Proposed Procedures p Colonoscopy - Ramses Lowe MD Height/Weight Height: 5 ft 9 in Weight: 138.3 kg Allergies Allergy/AdvReac Type Severity Reaction Status Date / Time Penicillins Allergy Unknown Unknown Verified 10/04/20 15:49 Sulfa (Sulfonamide Allergy Unknown Unknown Verified 10/04/20 15:49 Antibiotics) sulfamethoxazole Allergy Unknown Unknown Verified 10/04/20 15:49 Medications Home Medications Medication Instructions Recorded Confirmed Last Taken multivitamin [Multiple Vitamins] 1 tab PO DAILY 07/09/20 10/04/20 10/03/20 hydroxyzine HCl 25 mg PO Q8 PRN #90 tab 07/14/20 10/04/20 07/27/20 calcium citrate [Calcitrate] 200 mg PO DAILY 10/04/20 10/04/20 10/03/20 Active Medications Generic Name Dose Route Start Last Admin Trade Name Freq PRN Reason Stop Dose Admin Pantoprazole Sodium 40 mg/ 100 mls @ 20 mls/hr 10/04/20 15:30 10/04/20 20:55 Dextrose IV 11/03/20 15:29 8 mg/hr Q5H RONALDO 20 mls/hr Administration 8 MG/HR Octreotide Acetate 500 mcg/ 105 mls @ 10.5 mls/hr 10/04/20 18:00 10/04/20 18:07 Sodium Chloride IV 11/03/20 17:59 50 mcg/hr .Q10H RONALDO 10.5 mls/hr Administration 50 MCG/HR Magnesium Sulfate/Dextrose 1 gm in 100 mls @ 50 mls/hr 10/04/20 18:00 10/04/20 20:10 Magnesium Sulfate / D5w IV 10/05/20 03:59 Infused Q2H RONALDO Infusion Norepinephrine Bitartrate 8 mg in 508 mls @ 129.54 mls/hr 10/04/20 17:45 10/04/20 20:29 Levophed/D5w IV 11/03/20 17:44 0.25 mcg/kg/min .Q3H56M RONALDO 129.5 mls/hr Titration Protocol 0.25 MCG/KG/MIN Parenteral Electrolytes 1,000 mls @ 80 mls/hr 10/04/20 17:59 10/04/20 18:29 Normosol-R IV 11/03/20 17:58 80 mls/hr .[id number] RONALDO Administration NPO Date Last Intake of Fluids: 10/04/20 Time Last Intake of Fluids: 23:59 Date Last Intake of Solids: 10/04/20 Past Medical History Medical History Alcohol use disorder Alcoholism Allergic rhinitis HLD (hyperlipidemia) HTN (hypertension) Major depressive disorder Obesity Tobacco use Tobacco use disorder Exercise / Class Metabolic Activity II 4-5 Yardwork/Stairs/Walk up hill Past Family History Family History Other Heart disease Past Surgical History Surgical History H/O gastric bypass Past Anesthesia History No Hx of Anesthesia Complications and No Family Hx of Anesthesia Complications History of PONV No Hx of PONV and No Hx of Motion Sickness Social History Smoking Status: Never smoker tobacco type: cigarettes Hx Alcohol Use: Yes Alcohol type: hard liquor alcohol intake frequency: 3 or more drinks per day Alcohol Intake Frequency Comment: 1/5 of whiskey daily Hx Substance Use: No Physical Exam Vital Signs Last Vital Signs Temp 36.4 C L 10/04/20 22:09 Pulse 141 H 10/04/20 22:09 Resp 36 H 10/04/20 22:09 BP 107/61 10/04/20 22:09 Pulse Ox 100 10/04/20 22:09 Constitutional + morbidly obese ENMT Mouth: no dentition abnormality Thyromental Distance: > or= 3.5 Finger Breadths Mallampati Class: II Neck normal visual inspection and + thick neck Respiratory + labored breathing and + tachypneic Auscultation: lungs clear to auscultation bilaterally Cardiovascular Rate/Rhythm: + tachycardic Chest (Breasts) Chest: + vascular access device or port (RIJ triple leumen) Gastrointestinal (Abdomen) Inspection/Auscultation: + abdominal edema Psychiatric Orientation: alert Lab Results Anesthesia Preop Results Results Anesthesia Widget: WBC 24.82 K/uL (4.8-10.8) H 10/04/20 Hgb 8.7 g/dL (14.0-18.0) L 10/04/20 Hct 25.5 % (42-52) L 10/04/20 Plt 157 K/uL (130-400) 10/04/20 Na 133 mmol/L (136-145) L 10/04/20 K 3.8 mmol/L (3.5-5.1) 10/04/20 Cl 95 mmol/L (98-107) L 10/04/20 CO2 7 mmol/L (21-32) L* 10/04/20 BUN 7 mg/dl (7-18) 10/04/20 Creat 2.28 mg/dl (0.6-1.4) H 10/04/20 Glucose Level 88 mg/dl (70-99) 10/04/20 PT 23.1 Seconds (9.0-12.0) H 10/04/20 PTT 48.6 Seconds (21.0-31.0) H* 10/04/20 INR 2.4 (0.9-1.1) H 10/04/20 COVID-19 PCR NEGATIVE (Negative) 10/04/20 Blood Type O Positive 10/04/20 Antibody Screen NEGATIVE 10/04/20 Testing Laboratory Results 10/04/20 19:58 10/04/20 19:58 PT 23.1 Seconds (9.0-12.0) H 10/04/20 19:58 INR 2.4 (0.9-1.1) H 10/04/20 19:58 APTT 48.6 Seconds (21.0-31.0) H* 10/04/20 13:46 Blood Type O Positive 10/04/20 13:46 Antibody Screen NEGATIVE 10/04/20 13:46 10/04/20 13:47 POC Glucose (other) 124 H
--- NOTE | 2020-10-04 23:45 | Anesthesiology Progress Note ---
Date of Service October 04, 2020 Anesthesia Post Procedure Vital Signs Vital Signs: Temp Pulse Pulse Resp BP BP Pulse Ox 10/04/20 22:09 36.4 C L 141 H 36 H 107/61 100 10/04/20 22:03 131 H 30 H 107/61 100 10/04/20 22:00 135 H 26 H 56/34 L 100 10/04/20 21:57 36.4 C L 133 H 33 H 102/61 100 10/04/20 21:52 128 H 38 H 102/61 100 10/04/20 21:50 36.4 C L 132 H 35 H 102/61 100 10/04/20 21:30 133 H 42 H 100 10/04/20 21:23 36.7 C 129 H 21 108/56 L 98 10/04/20 21:01 36.4 C L 127 H 39 H 108/56 L 100 10/04/20 21:00 126 H 36 H 10/04/20 20:51 36.4 C L 122 H 39 H 99/42 L 100 10/04/20 20:49 119 H 33 H 95/42 L 10/04/20 20:46 122 H 25 H 100 10/04/20 20:40 121 H 39 H 107/59 L 100 10/04/20 20:38 100 10/04/20 20:35 119 H 32 H 98/53 L 100 10/04/20 20:30 120 H 24 107/55 L 100 10/04/20 20:28 119 H 24 87/56 L 100 10/04/20 20:25 118 H 29 H 66/48 L 100 10/04/20 20:24 120 H 28 H 77/52 L 100 10/04/20 20:20 117 H 37 H 84 L 10/04/20 20:16 117 H 35 H 87/47 L 99 10/04/20 20:13 120 H 15 83/58 L 100 10/04/20 20:12 117 H 34 H 60/36 L 100 10/04/20 20:05 115 H 30 H 90/72 L 100 10/04/20 20:00 36.4 C L 112 H 24 102/82 100 10/04/20 19:50 111 H 31 H 102/60 100 10/04/20 19:48 111 H 41 H 98/44 L 98 10/04/20 19:46 112 H 21 60/40 L 100 10/04/20 19:42 111 H 17 90/42 L 100 10/04/20 19:37 113 H 32 H 75/30 L 100 10/04/20 19:34 117 H 36 H 56/35 L 98 10/04/20 19:30 119 H 36 H 63/21 L 100 10/04/20 19:16 118 H 36 H 78/44 L 10/04/20 19:04 121 H 33 H 84/57 L 100 10/04/20 19:00 120 H 42 H 70/42 L 100 10/04/20 18:57 125 H 42 H 82/40 L 100 10/04/20 18:39 114 H 38 H 100 10/04/20 18:38 114 H 33 H 67/42 L 100 10/04/20 18:30 115 H 37 H 100 10/04/20 18:00 120 H 36 H 100 10/04/20 17:40 35.9 C L 10/04/20 17:30 120 H 37 H 82/61 L 100 10/04/20 17:01 117 H 24 96/66 L 100 10/04/20 17:00 109 H 40 H 116/55 L 100 10/04/20 16:46 118 H 35 H 105/43 L 100 10/04/20 16:31 113 H 31 H 112/66 100 10/04/20 16:16 108 H 35 H 133/72 100 10/04/20 16:01 109 H 40 H 116/55 L 100 10/04/20 16:00 109 H 40 H 116/55 L 100 10/04/20 15:52 105 H 33 H 106/54 L 100 10/04/20 15:46 105 H 33 H 106/54 L 100 10/04/20 15:30 106 H 44 H 106/45 L 100 10/04/20 15:16 110 H 31 H 92/53 L 100 10/04/20 15:15 36.6 C 105 H 24 92/53 L 100 10/04/20 15:01 112 H 32 H 93/37 L 100 10/04/20 15:00 36.5 C 112 H 36 H 93/36 L 100 10/04/20 14:54 119 H 23 112/46 L 100 10/04/20 13:46 104 H 38 H 93/72 L 06/07/21 13:34 104 H 33 H 102/52 L 100 10/04/20 13:21 105 H 24 100 10/04/20 13:15 110 H 33 H 84/72 L 100 10/04/20 13:09 99 H 25 H 96/57 L 100 10/04/20 13:05 36.9 C 105 H 105 H 24 91/60 L 91/60 L 100 10/04/20 13:04 104 H 30 H 91/60 L 100 Transfer of Care Handoff Completed per policy Notes Mental Status: alert / awake / arousable Patient Amnestic to Procedure: Yes Nausea / Vomiting: adequately controlled Pain: adequately controlled Airway Patency, RR, SpO2: see Notes below BP & HR: see Notes below Hydration State: see Notes below Anesthetic Complications: no major complications apparent Notes: patient remains critically ill. plan to transfer to tertiary care center for eval for surgical intervention. report given to ICU regarding his difficult airway, plan is to leave ETT in for transfer. ICU continuing to manage hemodynamics and multisystem organ dysfunction.
[2020-10-05] MEDS ORDERED: SODIUM BICARB 8.4% INJ 50 MEQ/50 ML SYR IV ONE ×2 (00:15→04:29)
[2020-10-05 00:28] LABS: iSTAT Allen Test Pass; iSTAT Art Bld Gas pCO2 Correct 27 mmHg (35-46); iSTAT Art Bld Gas pH Corrected 6.993 (7.35-7.45); iSTAT Arterial Blood Gas HCO3 7 meg/L (19-24); iSTAT Arterial Blood Gas pCO2 28 mmHg (35-46); iSTAT Arterial Blood Gas pH 6.99 (7.35-7.45); iSTAT Arterial Blood Gas pO2 305 mmHg (80-95); iSTAT Arterial Blood Gas pO2 C 303; iSTAT Carbon Dioxide 7 mmol/L (24-31); iSTAT FiO2 100 %; iSTAT Hematocrit 27 % (42-52); iSTAT Hemoglobin 9.2 g/dl (14.0-18.0); iSTAT Potassium 4.2 mmol/L (3.3-5.0); iSTAT Site L Brachial; iSTAT Sodium 131 mmol/L (135-144)
[2020-10-05] MEDS ORDERED: MIDAZOLAM HCL 5 MG/ML 1 ML VIAL ONE (00:39)
[2020-10-05] MEDS ORDERED: MIDAZOLAM HCL 5 MG/ML VIAL IV STA (00:44)
[2020-10-05] MEDS ORDERED: STAT IV Infusion **Titration per Protocol STA (00:44)
[2020-10-05] MEDS ORDERED: fentaNYL citrate 100 MCG/2 ML VIAL IV STA (00:44)
[2020-10-05] MEDS ORDERED: MIDAZOLAM BOLUS FROM BAG IV PRN (00:50)
[2020-10-05 00:52] LABS: Hematocrit (blood only) 26.1 % (42-52); Hemoglobin 8.5 g/dL (14.0-18.0); Mean Corpuscular Hemoglobin 32.4 pg (25-34); Mean Corpuscular Hgb Conc 32.6 g/dL (32-36); Mean Corpuscular Volume 99.6 fL (80-100); Platelet Count 6 K/uL (130-400); RDW Coefficient of Variation 18.5 % (11.5-14.5); RDW Standard Deviation 67.2 fL (36.4-46.3); Red Blood Count 2.62 M/uL (4.7-6.1); White Blood Count 17.95 K/uL (4.8-10.8)
[2020-10-05] MEDS ORDERED: VASOPRESSIN 20 UNITS in 0.9 % SODIUM CHLORIDE 100 ML IV SCH (01:00)
[2020-10-05] MEDS ORDERED: fentaNYL DRIP 1,250 MCG/250 ML BAG IV SCH (01:00)
[2020-10-05] MEDS ORDERED: MIDAZOLAM HCL 125 MG/250 ML BAG IV SCH (01:00)
[2020-10-05 01:16] LABS: Fibrinogen 109 mg/dl (184-400); INR 2.2 (0.9-1.1); Partial Thromboplastin Ratio 2.4; Prothrombin Time 20.9 Seconds (9.0-12.0)
[2020-10-05 01:17] LABS: Basophils # (auto) 0.01 K/uL (0-0.2); Basophils % (auto) 0.1 %; Echinocytes 2+; Eosinophils # (auto) 0.01 K/uL (0-0.5); Eosinophils % (auto) 0.1 %; Immature Granulocytes # (auto) 0.15 K/uL (0.00-0.02); Immature Granulocytes % (auto) 0.8 %; Lymphocytes # (auto) 1.63 K/uL (1.2-3.4); Lymphocytes % (auto) 9.1 %; Monocytes # (auto) 1.72 K/uL (0.11-0.59); Monocytes % (auto) 9.6 %; Neutrophils # (auto) 14.43 K/uL (1.4-6.5); Neutrophils % (auto) 80.3 %; Platelet Estimate SIGNIFIC DECREASED (Normal)
[2020-10-05 01:19] LABS: Partial Thromboplastin Time 63.2 Seconds (21.0-31.0)
[2020-10-05] MEDS ORDERED: SODIUM CHLORIDE 0.9% 250 ML IV PRN (01:50)
[2020-10-05 01:51] LABS: iSTAT Art Bld Gas pCO2 Correct 24 mmHg (35-46); iSTAT Art Bld Gas pH Corrected 7.116 (7.35-7.45); iSTAT Arterial Blood Gas HCO3 8 meg/L (19-24); iSTAT Arterial Blood Gas pCO2 24 mmHg (35-46); iSTAT Arterial Blood Gas pH 7.11 (7.35-7.45); iSTAT Arterial Blood Gas pO2 112 mmHg (80-95); iSTAT Arterial Blood Gas pO2 C 109; iSTAT Carbon Dioxide 8 mmol/L (24-31); iSTAT FiO2 60 %; iSTAT Hematocrit 29 % (42-52); iSTAT Hemoglobin 9.9 g/dl (14.0-18.0); iSTAT Site Art Line; iSTAT Sodium 135 mmol/L (135-144)
[2020-10-05] MEDS: MAGNESIUM SULFATE / D5W 1 GM/100 ML BAG IV SCH ×3 (01:58→06:12)
[2020-10-05] MEDS ORDERED: SODIUM BICARB 8.4% INJ 50 MEQ/50 ML SYR IV STA ×2 (02:00)
--- NOTE | 2020-10-05 02:02 | Procedure Note ---
Procedure Note Date of Service October 05, 2020 Note ARTERIAL LINE PROCEDURE NOTE: Procedure: Arterial Line Placement Attending: Dr. Dylan Wilson Provider: DAYSI Gann Indication: Monitoring on Pressors Anesthesia: None Line placed emergently in the setting of shock and hypotension requiring multiple vasopressors for blood pressure support and need for continuous hemodynamic monitoring A time-out was completed verifying correct patient, procedure, site, positioning, and implant(s) or special equipment if applicable. Allens test was performed to ensure adequate perfusion. Patients left wrist was prepped and draped in the usual sterile fashion. Ultrasound guidance was used to aid needle placement. A 20g Arrow arterial line was introduced into the left radial artery. Catheter was threaded, and the needle was removed with appropriate blood return. Good waveform was observed. The patient tolerated the procedure well. Confirmation of placement with ultrasound. Blood Loss: Minimal Complications: None Procedural Ultrasound Guidance: Procedure Date: 10/05/2020 Indication: Arterial line insertion Attending: Dr. Dylan Wilson Provider: DAYSI Gann Artery Identified: YES Line confirmed in Artery with ultrasound: Yes Complications: NONE Patient tolerated procedure: WELL Coding CPT Codes Tubes, Drains, and Vasc Access - Tubes, Drains, and Vasc Access: [id number] Place Catheter In Artery ([id number]) Tubes, Drains, and Vasc Access - Tubes, Drains, and Vasc Access: [id number] Ultrasound Guidance For Vascular ([id number]) [facility] [place] Procedure Codes (Charges) Tubes, Drains, and Vasc Access Procedure 1: Tubes, Drains, and Vasc Access: [id number] Place Catheter In Artery Procedure 2: Tubes, Drains, and Vasc Access: [id number] Ultrasound Guidance For Vascular
[2020-10-05] MEDS: NOREPINEPHRINE/D5W 8 MG/508 ML BAG IV SCH (02:11)
[2020-10-05 03:06] LABS: iSTAT Art Bld Gas pCO2 Correct 24 mmHg (35-46); iSTAT Art Bld Gas pH Corrected 7.172 (7.35-7.45); iSTAT Arterial Blood Gas HCO3 9 meg/L (19-24); iSTAT Arterial Blood Gas pCO2 24 mmHg (35-46); iSTAT Arterial Blood Gas pH 7.17 (7.35-7.45); iSTAT Arterial Blood Gas pO2 95 mmHg (80-95); iSTAT Arterial Blood Gas pO2 C 93; iSTAT Carbon Dioxide 9 mmol/L (24-31); iSTAT FiO2 60 %; iSTAT Hematocrit 27 % (42-52); iSTAT Hemoglobin 9.2 g/dl (14.0-18.0); iSTAT Potassium 4.1 mmol/L (3.3-5.0); iSTAT Site Art Line; iSTAT Sodium 134 mmol/L (135-144)
[2020-10-05] MEDS: OCTREOTIDE ACETATE 500 MCG in 0.9 % SODIUM CHLORIDE 100 ML IV SCH (04:14)
--- NOTE | 2020-10-05 07:11 | XRay Report ---
XR chest 1V portable CLINICAL HISTORY: Respiratory failure COMPARISON STUDY: 10/04/2020 FINDINGS: There is been interval placement of an endotracheal tube which is 4.5 cm above the chuy. A right internal jugular central venous catheter is again visualized. There are low lung volumes with hypoventilatory changes.[There is no lobar consolidation. IMPRESSION: 1. Low lung volumes with hypoventilatory changes 2. Interval placement of an endotracheal tube 4.5 cm above the chuy ACT 112: Negative or not required by law. Electronically signed by: Fausto Ellington M.D. 10/05/2020 7:09 AM
[2020-10-05] MEDS ORDERED: MIDODRINE HCL 2.5 MG TAB PO SCH (08:00)
[2020-10-05] MEDS ORDERED: FOLIC ACID 1 MG TAB PO SCH (09:00)
[2020-10-05] MEDS ORDERED: MULTIVITAMIN TAB PO SCH (09:00)
[2020-10-05] MEDS ORDERED: cefTRIAXone SODIUM 2,000 MG in DEXTROSE 5% 50 ML IV SCH (16:00)
[2020-10-05] MEDS ORDERED: ALBUMIN 25% 12.5 GM/50 ML VIAL IV SCH (17:30)
--- NOTE | 2020-10-06 05:44 | Electrocardiogram Report ---
Test Reason : Blood Pressure : / mmHG Vent. Rate : 114 BPM Atrial Rate : 114 BPM P-R Int : 144 ms QRS Dur : 088 ms QT Int : 344 ms P-R-T Axes : 023 006 004 degrees QTc Int : 474 ms Poor data quality, interpretation may be adversely affected Sinus tachycardia with Premature atrial complexes Otherwise normal ECG When compared with ECG of 04-OCT-2020 23:38, Premature atrial complexes are now Present Confirmed by Winston Scott ([id number]) on 10/06/2020 5:44:06 AM Referred By: REFERRED SELF Confirmed By:Winston Scott
--- NOTE | 2020-10-06 05:47 | Electrocardiogram Report ---
Test Reason : Blood Pressure : / mmHG Vent. Rate : 167 BPM Atrial Rate : 163 BPM P-R Int : 000 ms QRS Dur : 078 ms QT Int : 298 ms P-R-T Axes : 000 000 -03 degrees QTc Int : 497 ms Atrial fibrillation with rapid ventricular response Nonspecific ST abnormality Abnormal ECG When compared with ECG of 04-OCT-2020 23:39, Atrial fibrillation has replaced Sinus rhythm Confirmed by Winston Scott ([id number]) on 10/06/2020 5:46:51 AM Referred By: REFERRED SELF Confirmed By:Winston Scott
--- NOTE | 2020-10-11 19:11 | Discharge Summary ---
Date of Service October 05, 2020 Admission HPI Per Admitting Provider The patient is a critically ill 35-year-old alcoholic man who presented to the ER reporting bright red blood per rectum with diarrhea that began overnight. He reports having relapsed with his alcoholism and drank a full fifth of whiskey until approximately 1:00 this morning. He subsequently began having diarrhea and blood prompting him to call his mother who came over and found him confused. The patient does not remember the majority of the morning. An ambulance brought him in. In the ER he reports shortness of breath and has conversational dyspnea. He is wearing supplemental oxygen. At baseline he reports being able to climb a couple flights of stairs without any issue and has no shortness of breath. He does report shortness of breath developing over the last week. He reports also losing his job recently, a major stressor. He reports having a significant amount of stress related to the COVID-19 pandemic. He has suffered from alcoholism for several years. He denies use of any other drugs and is an occasional smoker. He reports approximately 2 cigarettes a day on average. He reports very poor nutrition not eating or drinking well in general. At this time he denies any pain or chest pain including no abdominal pain. He does not remember vomiting and has never had a history of GI bleed. He does have a history of gastric bypass. He denies any use of [id number] herbal supplements such as turmeric or vitamin E, aspirin, NSAIDs or other blood thinner use. He does not take medications regularly per his report. Mom is at the bedside. This patient was recently hospitalized for alcoholic hepatitis in July 2020 and received steroids at that time. Admission Exam Per Admitting Provider CONSTITUTIONAL: obese, vitals as above, generally ill-appearing, winded, alopecia EYES: pupils were round and equal bilaterally, yellowish hue to skin around eyes and generally, normal conjunctivae, no scleral icterus ENT: external ear and nose normal, mucous membranes are dry. NECK: trachea midline RESPIRATORY: clear to auscultation bilaterally, no crackles, rales or wheezes, normal respiratory effort, some conversational dyspnea noted CARDIOVASCULAR: tachy rate and regular rhythm, S1 and 2 heard without murmurs, gallops or rubs, no JVD, no peripheral edema CHEST: inspection of chest was normal GASTROINTESTINAL: soft, protuberant, nontender, nondistended MUSCULOSKELETAL: strength 5/5 throughout, head is normocephalic and atraumatic SKIN: warm and dry, jaundice NEUROLOGIC: Touch, pain and proprioception normal. CN 2-12 grossly intact, no sensory deficit, normal cognition, normal speech, no tremor PSYCHIATRIC: alert cooperative and oriented to person, place and time. Principal Diagnosis (1) Hypovolemic shock: (2) Acute GI bleeding: (3) Acute liver failure: (4) Acute blood loss anemia (ABLA): (5) Alcoholic hepatitis: (6) Acute alcohol intoxication: (7) Electrolyte abnormality: (8) Lactic acid acidosis: (9) Acute renal failure: (10) Tobacco use disorder: (11) Obesity: (12) History of gastric bypass: Discharge Exam per critical care team-patient was discharged overnight prior to next day Hospitalist picking patient up and examining him. He was sent urgently to [facility]. Discharge Data Allergies Allergy/AdvReac Type Severity Reaction Status Date / Time Penicillins Allergy Unknown Unknown Verified 10/04/20 15:49 Sulfa (Sulfonamide Allergy Unknown Unknown Verified 10/04/20 15:49 Antibiotics) sulfamethoxazole Allergy Unknown Unknown Verified 10/04/20 15:49 Consultations 10/04/20 15:16 ED Decision to Admit Stat 10/04/20 16:20 Consult Gastroenterology Routine 10/04/20 16:24 Consult Cardiovascular Sonographer Routine 10/05/20 02:04 Burn CD for patient Stat Procedures Performed Operation Date: 10/04/20 22:05 Actual Procedures p Esophagogastroduodenoscopy, Anastomotic ulcer (Not Applicable) - Ramses Lowe MD Ordered Studies 10/04/20 13:17 CT abd pelvis IV con only Stat Hospital Course (1) Hypovolemic shock: (2) Acute GI bleeding: (3) Acute liver failure: (4) Acute blood loss anemia (ABLA): (5) Alcoholic hepatitis: (6) Acute alcohol intoxication: (7) Electrolyte abnormality: (8) Lactic acid acidosis: (9) Acute renal failure: (10) Tobacco use disorder: (11) Obesity: (12) History of gastric bypass: The patient is a critically ill 35-year-old alcoholic man who presented to the ER reporting bright red blood per rectum that began overnight. He reports having relapsed with his alcoholism and drank 1/5 of whiskey until approximately 1 in the morning then subsequently, hematochezia began. He was in and out of consciousness throughout the morning, and his mother brought him in via EMS. In the ER he was hypotensive and tachycardic secondary to acute GI bleeding with resuscitation efforts underway in the ER including 1 unit of blood and 1 L of normal saline given. Lab work revealed a white blood cell count of 17, hemoglobin 8.8, hematocrit 25.5, platelet count 155. A BMP revealed a sodium of 134, potassium 3.1, chloride 95, carbon dioxide 11, BUN 5, creatinine 1.78, calcium 7.3, glucose 118. Troponin was negative. Liver function panel reflected acute liver failure/hepatitis with a total bilirubin 8.6, direct bilirubin 7.2, AST 448, ALT 56, alkaline phosphatase 276, albumin 1.7. INR was 2.1 and the patient was not on anticoagulation. A lactate of 17 was seen on initial labs. A CT of the abdomen pelvis with contrast was performed revealing marked hepatic steatosis and moderate hepatomegaly with trace ascites and possible small collaterals. There was moderate gallbladder wall thickening which was nonspecific. There was mild wall thickening of the ascending colon which could reflect a colitis, and no bowel obstruction. Appendix was normal. The patient was notably status post Honorio-en-Y gastric bypass. A chest x-ray revealed no active disease in the chest. The supervisor rides was consulted and the patient was transferred to the ICU for continued care and resuscitation efforts. The patient was started on a Protonix drip, octreotide drip, and Rocephin was given for empiric variceal bleed. In the ICU, albumin infusions were started, vitamin K 10 mg IV x1 dose, calcium gluconate was given, thiamine 500 mg IV 3 times daily was started, sodium bicarbonate 50 mEq IV was given, magnesium 1 g was transfused and the patient was started on oral phenobarbital 3 times a day. His discriminant function was calculated at 47, meld score was 28 Mila hepatitis score was 9 meeting criteria for steroids, however steroids were contraindicated given gastric bypass and current rectal bleeding and it was thought preferential to treat with pentoxifylline 400 mg 3 times a day as creatinine clearance was still greater than 50. This was ordered but never given as the patient was transferred out of this facility before receiving. Although he was improved with initial resuscitation efforts, he later became hypotensive and tachycardic continued continue to pass melena. He was transfused with an additional 2 units packed red blood cells and 2 units of FFP. On-call gastroenterology performed an emergent endoscopy where he was found to have an oozing gastric ulcer with adherent clot which was injected with epinephrine and treated with bipolar cautery. No specimens were collected. A strong recommendation was made to transfer to tertiary care center with bariatric surgery capabilities as he likely needed surgical intervention to correct this almost completely obstructing ulcer at the anastomosis. At this point renal function was also worsening and he had an episode of atrial fibrillation with RVR which required synchronized cardioversion. He converted back into sinus rhythm. He was excepted at [facility] for transfer for potential CRRT and higher level of care. He was transferred out in critical condition. During his stay he received a total of 3 units of pRBCs, 4 units FFP and 2 units of platelets. Rapid sequence intubation was performed by anesthesia and he remained intubated postoperatively. Total Time Total Time Spent Total Time Spent (In Minutes): 20 Total Time Includes: Other (chart review and dictation of events.) Discharge Plan Discharge Items Patient Disposition: Transfer Acute Care Hospital Reason For Visit: ACUTE LIVER FAILURE, GI BLEED Condition on Discharge: Fair Follow-up/Referrals: Dina Pfeiffer CRNP [Primary Care Provider] - Stand-Alone Forms: [facility] Medications and DC Order Prescriptions: No Action multivitamin [Multiple Vitamins] Tablet 1 tab PO DAILY RF: 0 hydroxyzine HCl 25 mg Tablet 25 mg PO Q8 PRN (Reason: Anxiety) Qty: 90 RF: 0 calcium citrate [Calcitrate] 200 mg (950 mg) Tablet 200 mg PO DAILY RF: 0 Admission Data Admit Date/Time: 10/04/20 16:20 Attending Provider: Dylan Wilson Admit Provider: Dylan Wilson Primary Care Provider: Dina Pfeiffer Other Providers: Lena Shah ; Rhys Valerio ; Dylan Wilson Other Interventions: Discharge Summary Assessment (RN) Last Done: 10/05/20 05:07
--- NOTE | 2020-10-13 09:35 | Coding Query ---
CODING QUERY To promote full compliance with coding requirements relating to patient care, provider participation is requested in all cases of store sales consultant uncertainty. Please assist us with the question(s) below: Coding Question(s): Patient admitted with GI bleed . EGD = oozing anastomic ulcer with obstruction . Patient transferred to [facility] for further care. Please document the etiology of the gastrointestinal hemorrhage if known or suspected. Thanks for your help. Billy Rodas [facility] Physician's Response(s): Undetermined etiology. Principal Diagnosis: "that condition established after study, to be chiefly responsible for occasioning the admission of the patient to the hospital for care." Co-Existing Principal Diagnosis: "when two or more diagnoses equally meet the criteria for principal diagnosis as determined by the circumstances of admission, diagnostic work up, and/or therapy provided, and the Alphabetic Index, Tabular List, or another coding guideline does not provide sequencing direction, any one of the diagnoses may be sequenced first." "When the physician has documented what appears to be a current diagnosis in the body of the record, but has not included the diagnosis in the final diagnostic statement, the physician should be asked whether the diagnosis should be added." (Source [facility]oding [facility] 2 QTR90. p3-4) KTD
== END 2020-10-05 04:30 | disposition short-term general hospital (02) | DRG 377 ==
LOC: ED 12:59 → 1E 16:20